=== PATIENT | male | born 1935 | race Caucasian/White ===

== ENCOUNTER 2017-05-06 16:06 | Inpatient (IN) | payer MEDICARE, MEDICAID ==
[2017-05-06] MEDS ORDERED: NORMAL SALINE 1000 ML 1,000 ML IV ONE (16:20)
[2017-05-06] MEDS ORDERED: CEFEPIME INJ 1 GM VIAL IM ONE (16:20)
--- NOTE | 2017-05-06 16:31 | ER Document Report ---
ED Fever - General Stated Complaint: FLU LIKE SYMPTOMS Time Seen by Provider: 05/06/17 16:12 Mode of Arrival: Medic Information source: Emergency Med Personnel TRAVEL OUTSIDE OF THE [place] IN LAST 30 DAYS: No - HPI Notes: 81-year-old male with history of three-vessel CABG, hypertension, CVA, diabetes according to prior records presents with fever. He is somewhat confused but states he has been having fever and symptoms for about 3 days at this point. EMS records shows that started yesterday and apparently his roommate has had influenza. Unclear when his first dose was but he has Tamiflu listed on his [facility]. He is disoriented and per record has severe dementia. He does complain of some shortness of breath. Denies any specific pain to me. He is a resident at [facility] where there is apparently a very severe influenza outbreak. Temperature per report from medic was 102 rectally and the patient had been confused. Unclear what his normal baseline mental status is like. EMS vitals included a blood pressure 123/60 and oxygen saturation of 93% on 4 L of nasal cannula. Reviewed records also show an allergy to penicillin which causes swelling but no further description. - Related Data Allergies/Adverse Reactions: Penicillins Allergy (Verified 09/19/15 18:36) swelling Past Medical History - Social History Smoking Status: Unknown if Ever Smoked Family History: Reviewed & Not Pertinent - Past Medical History Cardiac Medical History: Reports: Hx Coronary Artery Disease, Hx Heart Attack - 2000, Hx Hypercholesterolemia, Hx Hypertension, Hx Peripheral Vascular Disease Pulmonary Medical History: Reports: Hx COPD, Hx Pneumonia - 2013 Neurological Medical History: Reports: Hx Cerebrovascular Accident Endocrine Medical History: Reports: Hx Diabetes Mellitus Type 2 Renal/ Medical History: Reports: Hx Kidney Stones Musculoskeltal Medical History: Reports Hx Arthritis - Generalized Psychiatric Medical History: Reports: Hx Depression Past Surgical History: Reports: Hx Cardiac Catheterization, Hx Cardiac Surgery - Open heart - triple bypass., Hx Coronary Artery Bypass Graft - x3, Hx Kidney ( Renal Surgery) - Kidney stone, Hx Open Heart Surgery - TRIPLE BYPASS - Immunizations Hx Diphtheria, Pertussis, Tetanus Vaccination: No Hx Pneumococcal Vaccination: 01/05/14 Review of Systems - Review of Systems -: Yes ROS unobtainable due to patient's medical condition - Severe dementia and confusion Physical Exam - Vital signs Vitals: Resp Pulse Ox 37 H 95 05/06/17 16:34 05/06/17 16:34 Interpretation: Febrile - Notes Notes: GENERAL: VS as per nursing doc. Well-appearing, well-nourished and in mild respiratory acute distress. HEAD: Atraumatic, normocephalic. EYES: Right pupil appears normal, left eye enucleation noted sclera anicteric, no conjunctival injection or discharge. ENT: Nares patent, oropharynx clear without exudates with the exception of mild posterior erythema, slightly dry mucous membranes. NECK: Normal range of motion, supple without lymphadenopathy. LUNGS: Diffuse rhonchi noted. Scattered rails worse on the right side. Breath sounds decreased overall bilaterally HEART: Tachycardic and regular without murmurs. ABDOMEN: Soft, non-tender no obvious mass, bowel sounds present BACK: No CVA tenderness. EXTREMITIES: No unilateral edema NEUROLOGICAL: Generalized weakness noted PSYCH: Somnolent, oriented 1 SKIN: Warm, dry. Course - Re-evaluation Re-evalutation: 05/06/17 20:[address] Mauricio and he states the patient has been comfort care in the past and hospice. We have no records from hospice after reviewing the chart again. 05/06/17 20:26 Spoke to nursing staff at [place] [id number]. They report the patient is actually a full code. He does have an emergency contact listed as a j[employer] affiliate but they states he is usually oriented enough to make decisions for himself. They report he is not usually this weak and confused. I will contact Dr. Mauricio back. They are going to fax further paperwork. 05/06/17 20:41 Reviewed patient's records that they sent from the long term and verified the patient's name. On his annual review as of January 21, 2017, the patient and the sales representative publications both desire to keep him full code. Awaiting Dr. Mauricio to return call as no answer. - Vital Signs Vital signs: Temp Pulse Resp BP Pulse Ox 24 H 123/47 L 94 05/06/17 17:01 05/06/17 17:01 05/06/17 17:01 - Laboratory Result Diagrams: 05/06/17 16:40 05/06/17 16:40 Laboratory results interpreted by me: 05/06/17 05/06/17 05/06/17 16:40 16:40 16:40 WBC 12.9 H RBC 3.45 L Hgb 10.1 L Hct 30.0 L RDW 14.7 H Seg Neutrophils % 85.7 H Lymphocytes % 7.3 L Absolute Neutrophils 11.1 H PT 16.8 H BUN 25 H Creatinine 1.87 H Est GFR ( Amer) 42 L Est GFR (Non-Af Amer) 35 L Glucose 221 H Lactic Acid Urine Protein Urine Blood 05/06/17 05/06/17 17:57 18:19 WBC RBC Hgb Hct RDW Seg Neutrophils % Lymphocytes % Absolute Neutrophils PT BUN Creatinine Est GFR ( Amer) Est GFR (Non-Af Amer) Glucose Lactic Acid 2.2 H Urine Protein 100 H Urine Blood LARGE H - Diagnostic Test Radiology reviewed: Reports reviewed - Infiltrate - Consults Dr. Mauricio Time consulted: 20:48 - Admit to [facility] bed Discharge - Discharge Clinical Impression: Aspiration pneumonia Condition: Poor Disposition: ADMITTED INPATIENT Admitting Provider: Dr. Mauricio
[2017-05-06] MEDS ORDERED: IPRATROPIUM/ALBUTEROL 0.5-2.5 MG/3 ML AMPUL NEB ONE ×2 (16:33→19:50)
[2017-05-06 17:17] LABS: ABSOLUTE LYMPHOCYTES (AUTO) 0.9 10^3/uL (0.5-4.7); ABSOLUTE MONOCYTES (AUTO) 0.8 10^3/uL (0.1-1.4); ABSOLUTE NEUT (AUTO) 11.1 10^3/uL (1.7-8.2); BASOPHILS % (AUTO) 0.4 % (0-2); EOSINOPHILS % (AUTO) 0.2 % (0-6); HEMOGLOBIN 10.1 g/dL (13.5-17.0); LYMPHOCYTES % (AUTO) 7.3 % (13-45); MEAN CORPUSCULAR HEMOGLOBIN 29.2 pg (27.0-33.4); MEAN CORPUSCULAR HGB CONC 33.6 g/dL (32.0-36.0); MEAN CORPUSCULAR VOLUME 87 fl (80-97); MONOCYTES % (AUTO) 6.4 % (3-13); PLATELET COUNT 172 10^3/uL (150-450); RED BLOOD COUNT 3.45 10^6/uL (4.35-5.55); RED CELL DISTRIBUTION WIDTH 14.7 % (11.5-14.0); SEGMENTED NEUTROPHILS % (AUTO) 85.7 % (42-78); TOTAL CELLS COUNTED % (AUTO) 100 %; WHITE BLOOD COUNT 12.9 10^3/uL (4.0-10.5)
[2017-05-06 17:22] LABS: INTERNATIONAL RATION (INR) 1.28; PROTHROMBIN TIME 16.8 SEC (11.4-15.4)
[2017-05-06 17:39] LABS: ALANINE AMINOTRANSFERASE 22 U/L (21-72); ALBUMIN 4.1 g/dL (3.5-5.0); ALKALINE PHOSPHATASE 51 U/L (38-126); ANION GAP 13 (5-19); ASPARTATE AMINO TRANSFERASE 27 U/L (17-59); BILIRUBIN,DIRECT 0.3 mg/dL (0.0-0.4); BILIRUBIN,TOTAL 0.7 mg/dL (0.2-1.3); BLOOD UREA NITROGEN 25 mg/dL (7-20); CALCIUM 9.6 mg/dL (8.4-10.2); CARBON DIOXIDE 23 mmol/L (22-30); CHLORIDE 102 mmol/L (98-107); GLUCOSE 221 mg/dL (75-110); POTASSIUM 4.4 mmol/L (3.6-5.0); SODIUM 138.3 mmol/L (137-145); TOTAL PROTEIN 6.9 g/dL (6.3-8.2)
--- NOTE | 2017-05-06 17:49 | RADIOLOGY REPORT (SQ) ---
EXAM DESCRIPTION: CHEST SINGLE VIEW COMPLETED DATE/TIME: 05/06/2017 5:41 pm REASON FOR STUDY: Fever, Dyspnea COMPARISON: 11/01/2015. EXAM PARAMETERS: NUMBER OF VIEWS: One view. TECHNIQUE: Single frontal radiographic view of the chest acquired. RADIATION DOSE: NA LIMITATIONS: None. FINDINGS: LUNGS AND PLEURA: Patchy density in the right lower lobe. Left lung clear. No large pleu ral effusion. MEDIASTINUM AND HILAR STRUCTURES: No masses. Contour normal. HEART AND VASCULAR STRUCTURES: Cardiomegaly. Mild vascular prominence. BONES: No acute findings. HARDWARE: Sternotomy wires and coronary bypass markers. OTHER: No other significant finding. IMPRESSION: RIGHT LOWER LOBE DENSITY SUSPICIOUS FOR PNEUMONIA. CARDIOMEGALY WITH BORDERLINE VASCULA R CONGESTION. TECHNICAL DOCUMENTATION: JOB ID: [id number]- All Rights Reserved
[2017-05-06 18:07] LABS: ARTERIAL BLOOD BASE EXCESS -0.3 mmol/L; ARTERIAL BLOOD FIO2 4L; ARTERIAL BLOOD H2CO3 1.26 mmol/L (1.05-1.35); ARTERIAL BLOOD HCO3 24.7 mmol/L (20-26); ARTERIAL BLOOD O2 SATURATION 96.1 % (94-98); ARTERIAL BLOOD PCO2 41.9 mmHg (35-45); ARTERIAL BLOOD PH 7.39 (7.35-7.45); ARTERIAL BLOOD PO2 82.9 mmHg (80-100)
[2017-05-06] MEDS ORDERED: VANCOMYCIN HCL INJ 1000 MG VIAL IV ONE (18:08)
--- NOTE | 2017-05-06 18:32 | EKG REPORT ---
SEVERITY:- ABNORMAL ECG - SINUS RHYTHM RIGHT BUNDLE BRANCH BLOCK : Confirmed by: Maximilian Deras 06-May-2017 18:32:06
[2017-05-06 19:09] LABS: APPEARANCE,URINE SLIGHTLY-CLOUDY; BILIRUBIN,URINE NEGATIVE (NEGATIVE); COLOR,URINE YELLOW; GLUCOSE, URINE NEGATIVE (NEGATIVE); KETONES,URINE NEGATIVE (NEGATIVE); LEUKOCYTE ESTERASE,URINE NEGATIVE (NEGATIVE); NITRITE,URINE NEGATIVE (NEGATIVE); PROTEIN,URINE 100 mg/dL (NEGATIVE); URINE SPECIFIC GRAVITY 1.014; UROBILINOGEN,URINE NEGATIVE mg/dL (<2.0)
[2017-05-06 19:22] LABS: A TYPE INFLUENZA AG NEGATIVE (NEGATIVE); B INFLUENZA AG NEGATIVE (NEGATIVE)
[2017-05-06] MEDS ORDERED: CEFEPIME 1 GM/D5W RTU 0 GM/0 ML RTUPB IV ONE (19:47)
[2017-05-06] MEDS ORDERED: IPRATROPIUM BROMIDE 0.02% NEB 0.5 MG/2.5 ML AMPUL NEB ONE (19:49)
[2017-05-06] MEDS ORDERED: ACETAMINOPHEN 325 MG TABLET PO PRN (20:46)
[2017-05-06] MEDS ORDERED: IPRATROPIUM/ALBUTEROL 0.5-2.5 MG/3 ML AMPUL NEB PRN (20:46)
[2017-05-06] MEDS ORDERED: GUAIFENESIN SYRP 200 MG/10 ML UDC PO PRN (20:46)
[2017-05-06] MEDS ORDERED: GLUCAGON,HUMAN RECOMB 1 MG INJ IM PRN (20:49)
[2017-05-06] MEDS ORDERED: DEXTROSE 40% GEL 15 GM TUBE PO PRN ×2 (20:49)
[2017-05-06] MEDS ORDERED: DEXTROSE 50%-WATER 25 GM/50 ML DISP.SYRIN IV PRN ×2 (20:49)
[2017-05-06] MEDS: METOPROLOL TARTRATE 50 MG TABLET PO SCH (22:00)
[2017-05-06] MEDS ORDERED: CARBIDOPA/LEVODOPA 25-100 MG TABLET PO ONE (23:00)
[2017-05-06] MEDS ORDERED: LEVOFLOXACIN 750 MG/D5W RTU 750 MG/150 ML RTUPB IV ONE (23:00)
[2017-05-07] MEDS: GUAIFENESIN 600 MG TABLET.SA PO SCH ×3 (00:22→23:29)
[2017-05-07] MEDS: TRAZODONE HCL 50 MG TABLET PO SCH ×2 (00:23→23:32)
[2017-05-07] MEDS: ATORVASTATIN CALCIUM 10 MG TABLET PO SCH ×2 (00:23→23:30)
[2017-05-07] MEDS ORDERED: CARBIDOPA/LEVODOPA 25-100 MG TABLET ONE (00:31)
[2017-05-07] MEDS: IPRATROPIUM/ALBUTEROL 0.5-2.5 MG/3 ML AMPUL NEB SCH ×4 (02:01→20:29)
[2017-05-07 04:26] LABS: ABSOLUTE LYMPHOCYTES (AUTO) 0.7 10^3/uL (0.5-4.7); ABSOLUTE MONOCYTES (AUTO) 0.6 10^3/uL (0.1-1.4); ABSOLUTE NEUT (AUTO) 10.1 10^3/uL (1.7-8.2); BASOPHILS % (AUTO) 0.1 % (0-2); EOSINOPHILS % (AUTO) 0.3 % (0-6); HEMATOCRIT 31.1 % (37.9-51.0); HEMOGLOBIN 10.4 g/dL (13.5-17.0); MEAN CORPUSCULAR HGB CONC 33.3 g/dL (32.0-36.0); MEAN CORPUSCULAR VOLUME 87 fl (80-97); MONOCYTES % (AUTO) 5.2 % (3-13); PLATELET COUNT 159 10^3/uL (150-450); RED BLOOD COUNT 3.57 10^6/uL (4.35-5.55); RED CELL DISTRIBUTION WIDTH 14.7 % (11.5-14.0); SEGMENTED NEUTROPHILS % (AUTO) 88.4 % (42-78); TOTAL CELLS COUNTED % (AUTO) 100 %; WHITE BLOOD COUNT 11.5 10^3/uL (4.0-10.5)
[2017-05-07 05:01] LABS: ANION GAP 14 (5-19); BLOOD UREA NITROGEN 26 mg/dL (7-20); CALCIUM 9.4 mg/dL (8.4-10.2); CARBON DIOXIDE 25 mmol/L (22-30); CHLORIDE 102 mmol/L (98-107); GLUCOSE 217 mg/dL (75-110); POTASSIUM 4.5 mmol/L (3.6-5.0); SODIUM 140.6 mmol/L (137-145)
--- NOTE | 2017-05-07 05:38 | PDOC H&P ---
History of Present Illness Admission Date/PCP: 05/06/17 21:24 Patient complains of: Shortness of breath and cough History of Present Illness: STEPHENIE PEREZ is a 81 year old male who is a resident of [facility] with a past medical history of coronary artery disease status post three-vessel coronary artery bypass graft,, COPD, obstructive sleep apnea, diabetes and recurrent aspiration pneumonia. He presents after 3 days of shortness of breath fever and cough. Patient recalls coughing while eating, he is received treatment for influenza with Tamiflu as his roommate is flu positive. In the emergency room he is tachypneic and hypoxic. He receives albuterol, Atrovent, empiric antibiotics and referred to the hospitalist for admission. Patient denies chest pain nausea or vomiting. He does admit several episodes of aspiration pneumonia which prompted consideration of hospice within the year. Past Medical History Cardiac Medical History: Reports: Coronary Artery Disease, Myocardial Infarction - 2000, Hyperlipidema, Hypertension, Peripheral Vascular Disease Pulmonary Medical History: Reports: Chronic Obstructive Pulmonary Disease (COPD) , Pneumonia - 2013 Endocrine Medical History: Reports: Diabetes Mellitus Type 2 Musculoskeltal Medical History: Reports: Arthritis - Generalized Psychiatric Medical History: Reports: Depression Hematology: Denies: Anemia, Sickle Cell Disease Past Surgical History Past Surgical History: Reports: Cardiac Catheterization, Coronary Artery Bypass Graft - x3 Social History Information Source: Patient, [facility] Records Lives with: Alf Smoking Status: Unknown if Ever Smoked Frequency of Alcohol Use: None Hx Recreational Drug Use: No Hx Prescription Drug Abuse: No - Advance Directive Resuscitation Status: Full Code Family History Family History: COPD Parental Family History Reviewed: Yes Children Family History Reviewed: Yes Sibling(s) Family History Reviewed.: Yes Medication/Allergy Allergies/Adverse Reactions: Penicillins Allergy (Verified 09/19/15 18:36) swelling Review of Systems ROS unobtainable: Due to mental status Physical Exam Vital Signs: Temp Pulse Resp BP Pulse Ox 98.9 F 34 H 125/60 93 05/06/17 23:01 05/07/17 04:19 05/07/17 04:00 05/07/17 04:19 General appearance: PRESENT: cooperative, disheveled, severe distress Head exam: PRESENT: atraumatic, normocephalic Eye exam: PRESENT: conjunctiva pink, EOMI, PERRLA. ABSENT: scleral icterus Ear exam: PRESENT: normal external ear exam Mouth exam: PRESENT: moist, tongue midline Neck exam: ABSENT: carotid bruit, JVD, lymphadenopathy, thyromegaly Respiratory exam: PRESENT: accessory muscle use, crackles, prolonged expiratory phas, rales, retraction, rhonchi, tachypnea. ABSENT: wheezes Cardiovascular exam: PRESENT: RRR, tachycardia. ABSENT: diastolic murmur, rubs , systolic murmur Pulses: PRESENT: normal dorsalis pedis pul Vascular exam: PRESENT: normal capillary refill GI/Abdominal exam: PRESENT: normal bowel sounds, soft. ABSENT: distended, guarding, mass, organolmegaly, rebound, tenderness Rectal exam: PRESENT: deferred Extremities exam: PRESENT: full ROM. ABSENT: calf tenderness, clubbing, pedal edema Neurological exam: PRESENT: alert, awake, oriented to person, oriented to place , oriented to time, oriented to situation, CN II-XII grossly intact. ABSENT: motor sensory deficit Psychiatric exam: PRESENT: appropriate affect, normal mood. ABSENT: homicidal ideation, suicidal ideation Skin exam: PRESENT: dry, intact, warm. ABSENT: cyanosis, rash Results Laboratory Results: 05/07/17 04:15 05/07/17 04:15 05/06/17 05/07/17 05/07/17 21:54 04:15 04:15 WBC 11.5 H RBC 3.57 L Hgb 10.4 L Hct 31.1 L MCV 87 MCH 29.0 MCHC 33.3 RDW 14.7 H Plt Count 159 Seg Neutrophils % 88.4 H Lymphocytes % 6.0 L Monocytes % 5.2 Eosinophils % 0.3 Basophils % 0.1 Absolute Neutrophils 10.1 H Absolute Lymphocytes 0.7 Absolute Monocytes 0.6 Absolute Eosinophils 0.0 Absolute Basophils 0.0 Sodium 140.6 Potassium 4.5 Chloride 102 Carbon Dioxide 25 Anion Gap 14 BUN 26 H Creatinine 1.76 H Est GFR ( Amer) 45 L Est GFR (Non-Af Amer) 37 L Glucose 217 H Lactic Acid 2.1 Calcium 9.4 Impressions: Chest X-Ray 05/06/17 16:21 IMPRESSION: RIGHT LOWER LOBE DENSITY SUSPICIOUS FOR PNEUMONIA. CARDIOMEGALY WITH BORDERLINE VASCULAR CONGESTION. Assessment & Plan - Diagnosis (1) Aspiration pneumonia Is this a current diagnosis for this admission?: Yes Plan: Pneumonia care set, speech therapy consult, follow-up blood culture and CBC (2) Obstructive sleep apnea Is this a current diagnosis for this admission?: Yes Plan: BiPAP (3) Acute renal failure Qualifiers: Acute renal failure type: unspecified Qualified Code(s): N17.9 - Acute kidney failure, unspecified Is this a current diagnosis for this admission?: Yes Plan: Likely secondary to acute illness and mild hypovolemia with fever. IV fluid challenge and reevaluation of chemistry. Avoid nephrotoxic meds and doses - Time Time Spent: 50 to 70 Minutes - Inpatient Certification Medical Necessity: Need Close Monitoring Due to Risk of Patient Decompensation
[2017-05-07] MEDS: HEPARIN SOD (PORCINE) 5,000 UNIT/ML 1 ML SYRINGE SUBCUT SCH ×3 (06:06→23:33)
[2017-05-07] MEDS ORDERED: CARBIDOPA/LEVODOPA 25-100 MG TABLET PO SCH (10:00)
[2017-05-07] MEDS: CARBIDOPA/LEVODOPA 25-100 MG TABLET PO SCH ×2 (10:48→23:30)
[2017-05-07] MEDS: LORATADINE 10 MG TABLET PO SCH (10:48)
[2017-05-07] MEDS: METOPROLOL TARTRATE 50 MG TABLET PO SCH ×2 (10:48→23:30)
[2017-05-07] MEDS: MAGNESIUM OXIDE 400 MG TABLET PO SCH ×2 (10:48→17:56)
[2017-05-07] MEDS: TAMSULOSIN HCL 0.4 MG CAP.SR.24H PO SCH (10:48)
[2017-05-07] MEDS: VENLAFAXINE HCL 75 MG TABLET PO SCH (10:49)
[2017-05-07] MEDS ORDERED: INFLUENZA ADLT QUAD (36MOS+) 2017-18 VAC 0.5 ML SYR IM PRN (13:34)
[2017-05-08] MEDS: IPRATROPIUM/ALBUTEROL 0.5-2.5 MG/3 ML AMPUL NEB SCH ×4 (02:06→20:00)
[2017-05-08] MEDS: HEPARIN SOD (PORCINE) 5,000 UNIT/ML 1 ML SYRINGE SUBCUT SCH ×3 (06:12→22:00)
[2017-05-08] MEDS: GUAIFENESIN 600 MG TABLET.SA PO SCH ×2 (09:56→21:46)
[2017-05-08] MEDS: VENLAFAXINE HCL 75 MG TABLET PO SCH (09:56)
[2017-05-08] MEDS: TAMSULOSIN HCL 0.4 MG CAP.SR.24H PO SCH (09:56)
[2017-05-08] MEDS: CARBIDOPA/LEVODOPA 25-100 MG TABLET PO SCH ×2 (09:57→21:47)
[2017-05-08] MEDS: MAGNESIUM OXIDE 400 MG TABLET PO SCH ×2 (09:57→18:06)
[2017-05-08] MEDS: METOPROLOL TARTRATE 50 MG TABLET PO SCH ×2 (09:57→22:01)
[2017-05-08] MEDS: LORATADINE 10 MG TABLET PO SCH (09:57)
[2017-05-08] MEDS ORDERED: NORMAL SALINE 1000 ML 1,000 ML IV PRN (11:57)
[2017-05-08] MEDS ORDERED: VANCOMYCIN HCL 0 MG in DEXTROSE 5%-WATER 250 ML IV NR (12:00)
[2017-05-08] MEDS ORDERED: FUROSEMIDE INJ/PF 40 MG/4 ML SDV IV ONE (12:02)
--- NOTE | 2017-05-08 12:09 | PDOC PROGRESS REPORT ---
Subjective Progress Note for:: 05/07/17 Subjective:: Patient is a 81-year-old male with pneumonia, auditory distress, dementia and anemia. He is currently on BiPAP. Patient has no complaints. Patient was evaluated by speech therapy and did pass his speech evaluation. Patient does not require a modified diet. Reason For Visit: ASPIRATION PNEUMONIA DEMENTIA Physical Exam Vital Signs: Selected Entries 05/07/17 20:12 Temperature 97.9 F Temperature Axillary Source Pulse Rate 85 Respiratory 16 Rate Blood Pressure 112/45 L Blood Pressure 67 Mean BP Location Left Arm BP Position Supine O2 Sat by Pulse 93 Oximetry Oxygen Delivery Bipap Method General appearance: PRESENT: no acute distress, obese, well-nourished Head exam: PRESENT: normocephalic Eye exam: ABSENT: scleral icterus Ear exam: PRESENT: normal external ear exam Mouth exam: PRESENT: moist Neck exam: ABSENT: carotid bruit, JVD, lymphadenopathy, thyromegaly Respiratory exam: PRESENT: clear to auscultation vesta. ABSENT: rales, rhonchi, wheezes Cardiovascular exam: PRESENT: RRR. ABSENT: diastolic murmur, rubs, systolic murmur Pulses: PRESENT: normal dorsalis pedis pul Vascular exam: PRESENT: normal capillary refill GI/Abdominal exam: PRESENT: normal bowel sounds, soft. ABSENT: distended, guarding, mass, organolmegaly, rebound, tenderness Rectal exam: PRESENT: deferred Extremities exam: ABSENT: calf tenderness, clubbing, pedal edema Neurological exam: PRESENT: awake, oriented to person. ABSENT: motor sensory deficit Psychiatric exam: PRESENT: flat affect. ABSENT: homicidal ideation, suicidal ideation Skin exam: PRESENT: dry, intact, warm. ABSENT: cyanosis, rash Results Laboratory Results: 05/07/17 04:15 05/07/17 04:15 Impressions: Chest X-Ray 05/06/17 16:21 IMPRESSION: RIGHT LOWER LOBE DENSITY SUSPICIOUS FOR PNEUMONIA. CARDIOMEGALY WITH BORDERLINE VASCULAR CONGESTION. Assessment & Plan - Diagnosis (1) Aspiration pneumonia Qualifiers: Laterality: right Lung location: lower lobe of lung Is this a current diagnosis for this admission?: Yes Plan: Patient with right lower lobe pneumonia. Patient only on Levaquin. Patient may require staph coverage as patient does reside at [facility]. Will add vancomycin. She was evaluated by speech therapy and patient did not aspirate however he does continue to cough. Influenza negative. (2) Obstructive sleep apnea Is this a current diagnosis for this admission?: Yes Plan: Continue BiPAP at night or as needed. (3) Acute renal failure Qualifiers: Acute renal failure type: unspecified Qualified Code(s): N17.9 - Acute kidney failure, unspecified Is this a current diagnosis for this admission?: Yes Plan: Not sure if patient has acute on chronic renal failure. Patient did show some improvement with gentle hydration. We will continue to monitor. Continue holding lisinopril. (4) Type 2 diabetes mellitus Is this a current diagnosis for this admission?: Yes Plan: Patient with type 2 diabetes normally on oral anti-hyperglycemics however patient currently not eating. Will use sliding scale insulin for now. (5) CAD (coronary artery disease) Is this a current diagnosis for this admission?: Yes Plan: Continue beta-christal and statin. Patient is currently not on any aspirin not sure why he is not. Patient may benefit from a baby aspirin. (6) HLD (hyperlipidemia) Is this a current diagnosis for this admission?: Yes Plan: Continue statin. (7) HTN (hypertension) Is this a current diagnosis for this admission?: Yes Plan: TU Norvasc and Coreg. No lisinopril for now as patient has acute on chronic renal failure. - Time Time Spent with patient: 15-24 minutes Anticipated discharge: SNF Within: Other - Inpatient Certification Medical Necessity: Significant Comorbidiites Make Outpatient Treatment Too Risky - Patient is currently requiring continuous BiPAP. Patient still showing signs of distress. Will have to get patient closer to his baseline before returning him to [facility]., Need Close Monitoring Due to Risk of Patient Decompensation, Need for IV Antibiotics
[2017-05-08] MEDS ORDERED: VANCOMYCIN HCL 1,500 MG in DEXTROSE 5%-WATER 250 ML IV SCH (16:00)
[2017-05-08] MEDS: INSULIN LISPRO 100 UNIT/ML 3 ML VIAL SUBCUT PRN (18:06)
[2017-05-08] MEDS: BUDESONIDE NEB 0.5 MG/2 ML AMPUL NEB SCH (20:01)
[2017-05-08] MEDS: LEVOFLOXACIN 750 MG/D5W RTU 750 MG/150 ML RTUPB IV SCH (21:44)
[2017-05-08] MEDS: TRAZODONE HCL 50 MG TABLET PO SCH (21:45)
[2017-05-08] MEDS: ATORVASTATIN CALCIUM 10 MG TABLET PO SCH (21:47)
[2017-05-09] MEDS: IPRATROPIUM/ALBUTEROL 0.5-2.5 MG/3 ML AMPUL NEB SCH ×4 (02:12→20:17)
[2017-05-09] MEDS: METHYLPREDNISOLONE INJ 40 MG/1 ML SDV IV SCH ×3 (06:00→22:42)
[2017-05-09] MEDS: HEPARIN SOD (PORCINE) 5,000 UNIT/ML 1 ML SYRINGE SUBCUT SCH ×3 (06:02→22:43)
[2017-05-09] MEDS: BUDESONIDE NEB 0.5 MG/2 ML AMPUL NEB SCH ×2 (08:03→20:17)
[2017-05-09] MEDS: METOPROLOL TARTRATE 50 MG TABLET PO SCH ×2 (10:41→22:47)
[2017-05-09] MEDS: GUAIFENESIN 600 MG TABLET.SA PO SCH ×2 (10:42→22:42)
[2017-05-09] MEDS: MAGNESIUM OXIDE 400 MG TABLET PO SCH ×2 (10:42→17:15)
[2017-05-09] MEDS: CARBIDOPA/LEVODOPA 25-100 MG TABLET PO SCH ×2 (10:42→22:47)
[2017-05-09] MEDS: VENLAFAXINE HCL 75 MG TABLET PO SCH (10:42)
[2017-05-09] MEDS: TAMSULOSIN HCL 0.4 MG CAP.SR.24H PO SCH (10:42)
[2017-05-09] MEDS: INSULIN LISPRO 100 UNIT/ML 3 ML VIAL SUBCUT PRN ×4 (10:43→22:43)
[2017-05-09] MEDS: LORATADINE 10 MG TABLET PO SCH (10:43)
[2017-05-09 11:15] LABS: ABSOLUTE LYMPHOCYTES (AUTO) 0.8 10^3/uL (0.5-4.7); ABSOLUTE MONOCYTES (AUTO) 0.2 10^3/uL (0.1-1.4); ABSOLUTE NEUT (AUTO) 5.1 10^3/uL (1.7-8.2); BASOPHILS % (AUTO) 0.4 % (0-2); EOSINOPHILS % (AUTO) 0.5 % (0-6); HEMATOCRIT 33.8 % (37.9-51.0); HEMOGLOBIN 11.2 g/dL (13.5-17.0); LYMPHOCYTES % (AUTO) 13.6 % (13-45); MEAN CORPUSCULAR HEMOGLOBIN 29.2 pg (27.0-33.4); MEAN CORPUSCULAR HGB CONC 33.2 g/dL (32.0-36.0); MEAN CORPUSCULAR VOLUME 88 fl (80-97); MONOCYTES % (AUTO) 3.7 % (3-13); PLATELET COUNT 182 10^3/uL (150-450); RED BLOOD COUNT 3.84 10^6/uL (4.35-5.55); RED CELL DISTRIBUTION WIDTH 14.7 % (11.5-14.0); SEGMENTED NEUTROPHILS % (AUTO) 81.8 % (42-78); TOTAL CELLS COUNTED % (AUTO) 100 %; WHITE BLOOD COUNT 6.2 10^3/uL (4.0-10.5)
[2017-05-09 11:31] LABS: ANION GAP 13 (5-19); BLOOD UREA NITROGEN 45 mg/dL (7-20); CALCIUM 9.5 mg/dL (8.4-10.2); CARBON DIOXIDE 25 mmol/L (22-30); CHLORIDE 104 mmol/L (98-107); GLUCOSE 265 mg/dL (75-110); MAGNESIUM 2.1 mg/dL (1.6-2.3); POTASSIUM 4.2 mmol/L (3.6-5.0); SODIUM 142.1 mmol/L (137-145)
--- NOTE | 2017-05-09 11:54 | PDOC PROGRESS REPORT ---
Subjective Progress Note for:: 05/08/17 Subjective:: Patient is a 81-year-old male with pneumonia, auditory distress, dementia and anemia. He is currently on BiPAP. Patient has no complaints. Patient desating while on bipap. Oxygen had to be increased. Patient otherwise doing well. Reason For Visit: ASPIRATION PNEUMONIA DEMENTIA Physical Exam Vital Signs: Temp Pulse Resp BP Pulse Ox 97.8 F 74 31 H 108/40 L 95 05/08/17 19:59 05/08/17 20:01 05/08/17 20:01 05/08/17 19:59 05/08/17 20:01 Intake & Output 05/07/17 05/08/17 05/09/17 06:59 06:59 06:59 Intake Total 240 930 Output Total 200 1050 Balance 40 -120 Weight 111.4 kg General appearance: PRESENT: no acute distress, well-developed, well-nourished Head exam: PRESENT: normocephalic Eye exam: PRESENT: other - enucleated left eye. ABSENT: scleral icterus Ear exam: PRESENT: normal external ear exam Mouth exam: PRESENT: moist Neck exam: ABSENT: carotid bruit, JVD, lymphadenopathy, thyromegaly Respiratory exam: PRESENT: clear to auscultation vesta. ABSENT: rales, rhonchi, wheezes Cardiovascular exam: PRESENT: RRR. ABSENT: diastolic murmur, rubs, systolic murmur Pulses: PRESENT: normal dorsalis pedis pul Vascular exam: PRESENT: normal capillary refill GI/Abdominal exam: PRESENT: normal bowel sounds, soft. ABSENT: distended, guarding, mass, organolmegaly, rebound, tenderness Rectal exam: PRESENT: deferred Extremities exam: PRESENT: full ROM. ABSENT: calf tenderness, clubbing, pedal edema Neurological exam: PRESENT: alert, awake, oriented to person, CN II-XII grossly intact. ABSENT: motor sensory deficit Psychiatric exam: PRESENT: appropriate affect, normal mood. ABSENT: homicidal ideation, suicidal ideation Skin exam: PRESENT: dry, intact, warm. ABSENT: cyanosis, rash Results Laboratory Results: 05/07/17 04:15 Impressions: Chest X-Ray 05/06/17 16:21 IMPRESSION: RIGHT LOWER LOBE DENSITY SUSPICIOUS FOR PNEUMONIA. CARDIOMEGALY WITH BORDERLINE VASCULAR CONGESTION. Assessment & Plan - Diagnosis (1) Aspiration pneumonia Qualifiers: Laterality: right Lung location: lower lobe of lung Is this a current diagnosis for this admission?: Yes Plan: Patient with right lower lobe pneumonia. Continue vancomycin and Levaquin. Patient may require staph coverage as patient does reside at [facility]. He was evaluated by speech therapy and patient did not aspirate however he does continue to cough. Influenza negative. (2) Obstructive sleep apnea Is this a current diagnosis for this admission?: Yes Plan: Continue BiPAP. (3) Acute renal failure Qualifiers: Acute renal failure type: unspecified Qualified Code(s): N17.9 - Acute kidney failure, unspecified Is this a current diagnosis for this admission?: Yes Plan: Not sure if patient has acute on chronic renal failure. Will continue gentle hydration. Holding lisinopril for renal failure. Will monitor closely with patient being on vancomycin. (4) Type 2 diabetes mellitus Is this a current diagnosis for this admission?: Yes Plan: Patient with type 2 diabetes normally on oral anti-hyperglycemics. Continue SSI. (5) CAD (coronary artery disease) Is this a current diagnosis for this admission?: Yes Plan: Continue beta-christal and statin. Patient is currently not on any aspirin not sure why he is not. Patient may benefit from a baby aspirin. (6) HLD (hyperlipidemia) Is this a current diagnosis for this admission?: Yes Plan: Continue statin. (7) HTN (hypertension) Qualifiers: Hypertension type: essential hypertension Qualified Code(s): I10 - Essential (primary) hypertension Is this a current diagnosis for this admission?: Yes Plan: Continue Norvasc and Coreg. Will resume lisinopril when appropriate. Blood pressure fairly well controlled.
--- NOTE | 2017-05-09 12:15 | PDOC PROGRESS REPORT ---
Subjective Progress Note for:: 05/07/17 Subjective:: Patient is a 81-year-old male with pneumonia, auditory distress, dementia and anemia. He is currently on BiPAP. Patient has no complaints. Patient does not have any difficulty with swallowing. Patient was evaluated by speech therapy. Patient however continues to desat when he off BiPAP for any period of time. Reason For Visit: ASPIRATION PNEUMONIA DEMENTIA Physical Exam Vital Signs: Selected Entries 05/07/17 23:21 Temperature 98.3 F Temperature Axillary Source Pulse Rate 80 Respiratory 20 Rate Blood Pressure 118/51 L BP Location Left Arm BP Position Supine O2 Sat by Pulse 91 L Oximetry Oxygen Delivery Bipap Method General appearance: PRESENT: no acute distress, well-developed, well-nourished Head exam: PRESENT: atraumatic, normocephalic Eye exam: PRESENT: other - left eye enucleated. ABSENT: scleral icterus Ear exam: PRESENT: normal external ear exam Mouth exam: PRESENT: moist, tongue midline Neck exam: ABSENT: carotid bruit, JVD, lymphadenopathy, thyromegaly Respiratory exam: PRESENT: clear to auscultation vesta. ABSENT: rales, rhonchi, wheezes Cardiovascular exam: PRESENT: RRR. ABSENT: diastolic murmur, rubs, systolic murmur Pulses: PRESENT: normal dorsalis pedis pul Vascular exam: PRESENT: normal capillary refill GI/Abdominal exam: PRESENT: normal bowel sounds, soft. ABSENT: distended, guarding, mass, organolmegaly, rebound, tenderness Rectal exam: PRESENT: deferred Extremities exam: PRESENT: full ROM. ABSENT: calf tenderness, clubbing, pedal edema Neurological exam: PRESENT: alert, awake, oriented to person, CN II-XII grossly intact. ABSENT: motor sensory deficit Psychiatric exam: PRESENT: appropriate affect, normal mood. ABSENT: homicidal ideation, suicidal ideation Skin exam: PRESENT: dry, intact, warm. ABSENT: cyanosis, rash Results Laboratory Results: 05/07/17 05/07/17 04:15 04:15 WBC 11.5 H RBC 3.57 L Hgb 10.4 L Hct 31.1 L MCV 87 MCH 29.0 MCHC 33.3 RDW 14.7 H Plt Count 159 Seg Neutrophils % 88.4 H Lymphocytes % 6.0 L Monocytes % 5.2 Eosinophils % 0.3 Basophils % 0.1 Absolute Neutrophils 10.1 H Absolute Lymphocytes 0.7 Absolute Monocytes 0.6 Absolute Eosinophils 0.0 Absolute Basophils 0.0 Sodium 140.6 Potassium 4.5 Chloride 102 Carbon Dioxide 25 Anion Gap 14 BUN 26 H Creatinine 1.76 H Est GFR ( Amer) 45 L Est GFR (Non-Af Amer) 37 L Glucose 217 H Calcium 9.4 Impressions: Chest X-Ray 05/06/17 16:21 IMPRESSION: RIGHT LOWER LOBE DENSITY SUSPICIOUS FOR PNEUMONIA. CARDIOMEGALY WITH BORDERLINE VASCULAR CONGESTION. Assessment & Plan - Diagnosis (1) Aspiration pneumonia Qualifiers: Laterality: right Lung location: lower lobe of lung Is this a current diagnosis for this admission?: Yes Plan: Patient with right lower lobe pneumonia. On Levaquin. Patient may require staph coverage as patient does reside at [facility]. Will add vancomycin. He was evaluated by speech therapy and patient did not aspirate however he does continue to cough. Influenza negative. (2) Obstructive sleep apnea Is this a current diagnosis for this admission?: Yes Plan: Continue BiPAP. (3) Acute renal failure Qualifiers: Acute renal failure type: unspecified Qualified Code(s): N17.9 - Acute kidney failure, unspecified Is this a current diagnosis for this admission?: Yes Plan: Not sure if patient has acute on chronic renal failure. Will continue gentle hydration. Holding lisinopril for renal failure. Will monitor closely with patient being on vancomycin. (4) Type 2 diabetes mellitus Is this a current diagnosis for this admission?: Yes Plan: Patient with type 2 diabetes normally on oral anti-hyperglycemics. Will hold those for now. Continue SSI. (5) CAD (coronary artery disease) Is this a current diagnosis for this admission?: Yes Plan: Continue beta-christal and statin. Patient is currently not on any aspirin not sure why he is not. Patient may benefit from a baby aspirin. (6) HLD (hyperlipidemia) Is this a current diagnosis for this admission?: Yes Plan: Continue statin. (7) HTN (hypertension) Qualifiers: Hypertension type: essential hypertension Qualified Code(s): I10 - Essential (primary) hypertension Is this a current diagnosis for this admission?: Yes Plan: Continue Norvasc and Coreg. Will resume lisinopril when appropriate. Blood pressure fairly well controlled. - Time Time Spent with patient: Less than 15 minutes Anticipated discharge: SNF Within: within 72 hours - Inpatient Certification Medical Necessity: Need for IV Antibiotics - Patient still requiring continuous bipap.
[2017-05-09] MEDS: LEVOFLOXACIN 750 MG/D5W RTU 750 MG/150 ML RTUPB IV SCH (22:38)
[2017-05-09] MEDS: ATORVASTATIN CALCIUM 10 MG TABLET PO SCH (22:42)
[2017-05-09] MEDS: TRAZODONE HCL 50 MG TABLET PO SCH (22:42)
[2017-05-10] MEDS: IPRATROPIUM/ALBUTEROL 0.5-2.5 MG/3 ML AMPUL NEB SCH ×4 (02:07→19:30)
[2017-05-10] MEDS: HEPARIN SOD (PORCINE) 5,000 UNIT/ML 1 ML SYRINGE SUBCUT SCH ×3 (06:11→22:29)
[2017-05-10] MEDS: METHYLPREDNISOLONE INJ 40 MG/1 ML SDV IV SCH ×3 (06:12→22:29)
[2017-05-10] MEDS: BUDESONIDE NEB 0.5 MG/2 ML AMPUL NEB SCH ×2 (08:39→19:30)
[2017-05-10] MEDS: INSULIN LISPRO 100 UNIT/ML 3 ML VIAL SUBCUT PRN ×3 (09:04→17:45)
[2017-05-10 10:52] LABS: ANION GAP 13 (5-19); BLOOD UREA NITROGEN 46 mg/dL (7-20); CALCIUM 9.4 mg/dL (8.4-10.2); CARBON DIOXIDE 25 mmol/L (22-30); CHLORIDE 99 mmol/L (98-107); POTASSIUM 4.9 mmol/L (3.6-5.0); SODIUM 137.2 mmol/L (137-145)
[2017-05-10] MEDS: GUAIFENESIN 600 MG TABLET.SA PO SCH ×2 (11:01→22:29)
[2017-05-10] MEDS: CARBIDOPA/LEVODOPA 25-100 MG TABLET PO SCH ×2 (11:04→22:28)
[2017-05-10] MEDS: LORATADINE 10 MG TABLET PO SCH (11:04)
[2017-05-10] MEDS: VENLAFAXINE HCL 75 MG TABLET PO SCH (11:05)
[2017-05-10] MEDS: TAMSULOSIN HCL 0.4 MG CAP.SR.24H PO SCH (11:06)
[2017-05-10] MEDS: MAGNESIUM OXIDE 400 MG TABLET PO SCH ×2 (11:06→17:06)
[2017-05-10] MEDS: METOPROLOL TARTRATE 50 MG TABLET PO SCH ×2 (11:07→22:29)
[2017-05-10 11:22] LABS: GLUCOSE 502 mg/dL (75-110)
[2017-05-10] MEDS ORDERED: LEVOFLOXACIN 500 MG TABLET PO SCH (15:00)
--- NOTE | 2017-05-10 15:31 | PDOC PROGRESS REPORT ---
Subjective Progress Note for:: 05/09/17 Subjective:: Patient is a 81-year-old male with pneumonia, auditory distress, dementia and anemia. He is currently on BiPAP. Patient has no complaints. Patient is looking forward to working with physical therapy so that he can go home. Patient states his breathing is fine. Patient has been doing well. Patient is only on 20 have liters and is satting well. Patient only using BiPAP at night with sleep which is appropriate considering that he has obstructive sleep apnea. Reason For Visit: ASPIRATION PNEUMONIA DEMENTIA Physical Exam Vital Signs: Temp Pulse Resp BP Pulse Ox 98.1 F 72 20 103/46 L 95 05/09/17 16:13 05/09/17 16:13 05/09/17 16:13 05/09/17 16:13 05/09/17 16:13 Intake & Output 05/08/17 05/09/17 05/10/17 06:59 06:59 06:59 Intake Total 240 1470 373 Output Total 200 1300 800 Balance 40 170 -427 Weight 111.4 kg 93.2 kg General appearance: PRESENT: no acute distress, well-developed, well-nourished Head exam: PRESENT: atraumatic, normocephalic Eye exam: PRESENT: other - Enucleated left eye. ABSENT: scleral icterus Ear exam: PRESENT: normal external ear exam Mouth exam: PRESENT: tongue midline Neck exam: ABSENT: carotid bruit, JVD, lymphadenopathy, thyromegaly Respiratory exam: PRESENT: clear to auscultation vesta. ABSENT: rales, rhonchi, wheezes Cardiovascular exam: PRESENT: RRR. ABSENT: diastolic murmur, rubs, systolic murmur Pulses: PRESENT: normal dorsalis pedis pul Vascular exam: PRESENT: normal capillary refill GI/Abdominal exam: PRESENT: normal bowel sounds, soft. ABSENT: distended, guarding, mass, organolmegaly, rebound, tenderness Rectal exam: PRESENT: deferred Extremities exam: PRESENT: full ROM. ABSENT: calf tenderness, clubbing, pedal edema Neurological exam: PRESENT: alert, awake, oriented to person, oriented to place , oriented to time, oriented to situation, CN II-XII grossly intact. ABSENT: motor sensory deficit Psychiatric exam: PRESENT: appropriate affect, normal mood. ABSENT: homicidal ideation, suicidal ideation Skin exam: PRESENT: dry, intact, warm. ABSENT: cyanosis, rash Results Laboratory Results: 05/09/17 10:35 05/09/17 10:35 05/09/17 05/09/17 10:35 10:35 WBC 6.2 RBC 3.84 L Hgb 11.2 L Hct 33.8 L MCV 88 MCH 29.2 MCHC 33.2 RDW 14.7 H Plt Count 182 Seg Neutrophils % 81.8 H Lymphocytes % 13.6 Monocytes % 3.7 Eosinophils % 0.5 Basophils % 0.4 Absolute Neutrophils 5.1 Absolute Lymphocytes 0.8 Absolute Monocytes 0.2 Absolute Eosinophils 0.0 Absolute Basophils 0.0 Sodium 142.1 Potassium 4.2 Chloride 104 Carbon Dioxide 25 Anion Gap 13 BUN 45 H Creatinine 2.07 H Est GFR ( Amer) 37 L Est GFR (Non-Af Amer) 31 L Glucose 265 H Calcium 9.5 Magnesium 2.1 Impressions: Chest X-Ray 05/06/17 16:21 IMPRESSION: RIGHT LOWER LOBE DENSITY SUSPICIOUS FOR PNEUMONIA. CARDIOMEGALY WITH BORDERLINE VASCULAR CONGESTION. Assessment & Plan - Diagnosis (1) Aspiration pneumonia Qualifiers: Laterality: right Lung location: lower lobe of lung Is this a current diagnosis for this admission?: Yes Plan: Patient with right lower lobe pneumonia. Patient de-escalated Levaquin. Patient without leukocytosis. Patient swallowed well and did not have any signs of aspiration with speech therapy. (2) Obstructive sleep apnea Is this a current diagnosis for this admission?: Yes Plan: Settings are 12/6 with oxygen of 45. Patient only using BiPAP at night. (3) Acute renal failure Qualifiers: Acute renal failure type: unspecified Qualified Code(s): N17.9 - Acute kidney failure, unspecified Is this a current diagnosis for this admission?: Yes Plan: Suspect that this is acute on chronic renal failure. Will continue gentle hydration. Holding lisinopril for renal failure. Vancomycin also discontinued. (4) Type 2 diabetes mellitus Is this a current diagnosis for this admission?: Yes Plan: Patient with type 2 diabetes normally on oral anti-hyperglycemics. Will hold those for now. Continue SSI. (5) CAD (coronary artery disease) Is this a current diagnosis for this admission?: Yes Plan: Continue beta-christal and statin. Patient is currently not on any aspirin not sure why he is not. Patient may benefit from a baby aspirin. (6) HLD (hyperlipidemia) Is this a current diagnosis for this admission?: Yes Plan: Continue statin. (7) HTN (hypertension) Qualifiers: Hypertension type: essential hypertension Qualified Code(s): I10 - Essential (primary) hypertension Is this a current diagnosis for this admission?: Yes Plan: Continue Norvasc and Coreg. Will resume lisinopril when appropriate. Blood pressure fairly well controlled. - Time Time Spent with patient: Less than 15 minutes Anticipated discharge: SNF Within: within 24 hours
--- NOTE | 2017-05-10 15:44 | PDOC TRANSFER SUMMARY ---
General - Admit/Disc Date/PCP Admission Date/Primary Care Provider: 05/06/17 21:24 Discharge Date: 05/10/17 - Discharge Diagnosis (1) Aspiration pneumonia Is this a current diagnosis for this admission?: Yes (2) Obstructive sleep apnea Is this a current diagnosis for this admission?: Yes (3) Acute renal failure Is this a current diagnosis for this admission?: Yes (4) Type 2 diabetes mellitus Is this a current diagnosis for this admission?: Yes (5) CAD (coronary artery disease) Is this a current diagnosis for this admission?: Yes (6) HLD (hyperlipidemia) Is this a current diagnosis for this admission?: Yes (7) HTN (hypertension) Is this a current diagnosis for this admission?: Yes - Additional Information Resuscitation Status: Full Code Discharge Diet: Diabetic Prescriptions: Methylprednisolone [Medrol Dosepack (4 mg/Tab) 21 Tab/Dosepak] 4 mg PO ASDIR PRN #21 tab.ds.pk PRN Reason: Home Medications: Amlodipine Besylate [Norvasc 10 mg Tablet] 10 mg PO DAILY 05/07/17 Carvedilol [Coreg 3.125 mg Tablet] 3.125 mg PO Q12 05/07/17 Duloxetine HCl [Cymbalta] 30 mg PO QAM 05/07/17 Famotidine [Pepcid 20 mg Tablet] 20 mg PO BID 05/07/17 Magnesium Oxide [Mag-Ox 400 mg Tablet] 400 mg PO BID 05/07/17 Rinard-3 Fatty Acids [Rinard-3] 1,000 mg PO BID 05/07/17 Phenol/Sodium Phenolate [Chloraseptic Sore Throat Jakin 177 ml] 2 spray PO Q4HP PRN 05/07/17 Polyethylene Glycol 3350 [Miralax Powder 17 gm/Packet] 17 gm PO DAILY 05/07/17 Rosuvastatin Calcium [Crestor] 40 mg PO QAM 05/07/17 Sitagliptin Phos/Metformin HCl [Janumet 50-1,000 mg Tablet] 1 tab PO BID Tamsulosin HCl [Flomax 0.4 mg Cap.sr] 0.4 mg PO DAILY 05/07/17 Ipratropium/Albuterol Sulfate [Duoneb 3 ml Ampul] 3 ml NEB RTQ12 vial.neb 05/10 Levofloxacin [Levaquin 250 mg Tablet] 250 mg PO DAILY #6 tablet 05/10/17 Lisinopril [Zestril] 10 mg PO Q12 #0 05/10/17 Methylprednisolone [Medrol Dosepack (4 mg/Tab) 21 Tab/Dosepak] 4 mg PO ASDIR PRN #21 tab.ds.pk 05/10/17 History of Present Illness Admission Date/PCP: 05/06/17 21:24 History of Present Illness: STEPHENIE PEREZ is a 81 year old male who is a resident of [facility] with a past medical history of coronary artery disease status post three-vessel coronary artery bypass graft,, COPD, obstructive sleep apnea, diabetes and recurrent aspiration pneumonia. He presents after 3 days of shortness of breath fever and cough. Patient recalls coughing while eating, he is received treatment for influenza with Tamiflu as his roommate is flu positive. In the emergency room he is tachypneic and hypoxic. He receives albuterol, Atrovent, empiric antibiotics and referred to the hospitalist for admission. Patient denies chest pain nausea or vomiting. He does admit several episodes of aspiration pneumonia which prompted consideration of hospice within the year. Original H&P was dictated by Dr. Mauricio. Hospital Course Hospital Course: Patient was admitted for right lower lobe pneumonia there was concern that patient may have aspirated however when he was evaluated by speech therapy there was no obvious aspiration. Patient was however having respiratory difficulty making it unsafe for him to eat. Patient was placed on continuous BiPAP and treated aggressively for his pneumonia with cefepime and vancomycin. Blood cultures are drawn which remained negative. Patient was given duo nebs budesonide Singulair and Mucinex. When patient was not improving he was started on Solu-Medrol. Patient shows significant improvement and was able to maintain his saturations on 2-1/2 L. Patient also maintains his saturations on room air. Patient is only using BiPAP at night for his obstructive sleep apnea. Patient BiPAP settings are 12/6 with a oxygen of 45. Patient appear to have acute on chronic renal failure. I do believe the patient has a CKD stage III. Patient creatinine trended up to 2.07 has trended back down to 1.93 with gentle hydration. Patient continues to have adequate urine output. Patient will be discharged on 6 more days of Levaquin. Next dose to be taken on 2017. Patient is also being discharged on a Medrol Dosepak. Patient did have some elevated blood sugars however this is most likely related to the use of Solu-Medrol to help control his respiratory symptoms. Patient is being discharged on Medrol Dosepak. Patient blood glucoses should be better controlled once he is weaned off steroids. Patient can continue his oral anti- hyperglycemic medication. However this should be monitored closely in a patient with chronic renal failure. At some point in time patient should be transitioned over to insulin. Patient has been up and ambulated with PT. Patient will continue to require physical therapy. He was also evaluated by OT who discharged him stating that he was too high functioning. Patient will be discharged on 6 more days of Levaquin. Next dose to be taken on . Physical Exam Vital Signs: Temp Pulse Resp BP Pulse Ox 97.5 F 74 16 123/50 L 98 05/10/17 11:27 05/10/17 14:08 05/10/17 14:08 05/10/17 11:27 05/10/17 14:08 Intake & Output 05/09/17 05/10/17 05/11/17 06:59 06:59 06:59 Intake Total 1470 973 Output Total 1300 1300 Balance 170 -327 Weight 93.2 kg 94.5 kg General appearance: PRESENT: no acute distress, well-developed, well-nourished Head exam: PRESENT: normocephalic Eye exam: ABSENT: scleral icterus Ear exam: PRESENT: normal external ear exam Mouth exam: PRESENT: moist, tongue midline Neck exam: ABSENT: carotid bruit, JVD, lymphadenopathy, thyromegaly Respiratory exam: PRESENT: clear to auscultation vesta. ABSENT: rales, rhonchi, wheezes Cardiovascular exam: PRESENT: RRR. ABSENT: diastolic murmur, rubs, systolic murmur Pulses: PRESENT: normal dorsalis pedis pul Vascular exam: PRESENT: normal capillary refill GI/Abdominal exam: PRESENT: normal bowel sounds, soft. ABSENT: distended, guarding, mass, organolmegaly, rebound, tenderness Rectal exam: PRESENT: deferred Extremities exam: PRESENT: full ROM. ABSENT: calf tenderness, clubbing, pedal edema Neurological exam: PRESENT: alert, awake, oriented to person, oriented to place , oriented to time, oriented to situation. ABSENT: motor sensory deficit Psychiatric exam: PRESENT: appropriate affect, normal mood. ABSENT: homicidal ideation, suicidal ideation Skin exam: PRESENT: dry, intact, warm. ABSENT: cyanosis, rash Results Laboratory Results: 05/09/17 10:35 05/10/17 10:07 05/10/17 10:07 Sodium 137.2 Potassium 4.9 Chloride 99 Carbon Dioxide 25 Anion Gap 13 BUN 46 H Creatinine 1.93 H Est GFR ( Amer) 40 L Est GFR (Non-Af Amer) 33 L Glucose 502 H* Calcium 9.4 Magnesium 2.0 Impressions: Chest X-Ray 05/06/17 16:21 IMPRESSION: RIGHT LOWER LOBE DENSITY SUSPICIOUS FOR PNEUMONIA. CARDIOMEGALY WITH BORDERLINE VASCULAR CONGESTION. Transfer Plan - Disposition Transfer Plan: Patient is being transferred back to [facility] to continue his care. Patient should continue with physical therapy. - Time Spent with Patient Time spent with patient: Greater than 30 Minutes Qualifiers PATEINT BEING DISCHARGED WITH ANY OF THE FOLLOWING DIAGNOSIS?: No Plan Time Spent: Greater than 30 Minutes
[2017-05-10 21:53] VITALS: BP 142/63
[2017-05-10] MEDS: ATORVASTATIN CALCIUM 10 MG TABLET PO SCH (22:28)
[2017-05-10] MEDS: TRAZODONE HCL 50 MG TABLET PO SCH (22:28)
== END 2017-05-10 22:30 | DRG 194 ==
LOC: ER 16:06 → EH 21:24 → 4S 05-07 14:37
PROVIDERS: ADMIT Internal Medicine; ATTEND Internal Medicine
PROC: 5A09457 Assistance with Respiratory Ventilation, 24-96 Consecutive Hours, Continuous Positive Airway Pressure (ICD-10-PCS; principal; 2017-05-07)
PROC: 3E0F73Z Introduction of Anti-inflammatory into Respiratory Tract, Via Natural or Artificial Opening (ICD-10-PCS; 2017-05-07)
DX: J18.9 Pneumonia, unspecified organism (principal); N17.9 Acute kidney failure, unspecified; J44.0 Chronic obstructive pulmonary disease with (acute) lower respiratory infection; G47.33 Obstructive sleep apnea (adult) (pediatric); I25.10 Atherosclerotic heart disease of native coronary artery without angina pectoris; N18.3 Chronic kidney disease, stage 3 (moderate); I12.9 Hypertensive chronic kidney disease with stage 1 through stage 4 chronic kidney disease, or unspecified chronic kidney disease; E11.22 Type 2 diabetes mellitus with diabetic chronic kidney disease; M15.9 Polyosteoarthritis, unspecified; E11.51 Type 2 diabetes mellitus with diabetic peripheral angiopathy without gangrene; F32.9 Major depressive disorder, single episode, unspecified; D63.1 Anemia in chronic kidney disease; F03.90 Unspecified dementia, unspecified severity, without behavioral disturbance, psychotic disturbance, mood disturbance, and anxiety; E78.00 Pure hypercholesterolemia, unspecified; I25.2 Old myocardial infarction; Z99.81 Dependence on supplemental oxygen; Z79.899 Other long term (current) drug therapy; Z95.1 Presence of aortocoronary bypass graft; Z88.0 Allergy status to penicillin; Z79.84 Long term (current) use of oral hypoglycemic drugs; Z83.6 Family history of other diseases of the respiratory system; Z86.73 Personal history of transient ischemic attack (TIA), and cerebral infarction without residual deficits
CPT/HCPCS: 36415; 71045; 80048; 80053; 81001; 82803; 82962; 83605; 83735; 85025; 85610; 87040; 87086; 87804; 93005; 93010; 94640; 94660; 96365; 99285; G8978-GP; G8979-GP; G8987-GO; G8988-GO; G8989-GO; G8996-GN; G8997-GN; G8998-GN; J1644; J1815; J1940; J1956; J2920; J3370; J3490; J7030; J7060; J7620

== ENCOUNTER 2017-10-13 19:50 | Emergency (ER) | payer MEDICAID, MEDICARE ==
[2017-10-13] MEDS ORDERED: METOCLOPRAMIDE HCL INJ/PF 10 MG/2 ML SDV IV ONE (20:44)
--- NOTE | 2017-10-13 20:48 | ER Document Report ---
ED General - General Stated Complaint: HEADACHE Time Seen by Provider: 10/13/17 20:04 Cannot obtain history due to: Dementia Notes: Patient is an 82-year-old male who presents by EMS from [facility] with concerns of a headache. The patient describes this as a left-sided headache that is a dull, throbbing, constant headache. States that it started relatively abruptly but has been worsening since that time. He states he took Tylenol without any relief and was therefore sent to the emergency department. He is uncertain of whether or not he has a history of similar headaches in the past. He denies any focal weakness or numbness. History is otherwise limited as patient is demented and quite terse during history taking. TRAVEL OUTSIDE OF THE [place] IN LAST 30 DAYS: No - Related Data Allergies/Adverse Reactions: Penicillins Allergy (Verified 09/19/15 18:36) swelling Past Medical History - General Information source: Patient, Transfer Record, Emergency Med Personnel Cannot obtain history due to: Dementia - Social History Smoking Status: Former Smoker Frequency of alcohol use: None Drug Abuse: None Lives with: Group Home Family History: COPD - Past Medical History Cardiac Medical History: Reports: Hx Coronary Artery Disease, Hx Heart Attack - 2000, Hx Hypercholesterolemia, Hx Hypertension, Hx Peripheral Vascular Disease Pulmonary Medical History: Reports: Hx COPD, Hx Pneumonia - 2013 Neurological Medical History: Reports: Hx Cerebrovascular Accident Endocrine Medical History: Reports: Hx Diabetes Mellitus Type 2 Renal/ Medical History: Reports: Hx Kidney Stones. Denies: Hx Peritoneal Dialysis Musculoskeltal Medical History: Reports Hx Arthritis - Generalized Psychiatric Medical History: Reports: Hx Depression Past Surgical History: Reports: Hx Cardiac Catheterization, Hx Cardiac Surgery - Open heart - triple bypass., Hx Coronary Artery Bypass Graft - x3, Hx Kidney ( Renal Surgery) - Kidney stone, Hx Open Heart Surgery - TRIPLE BYPASS - Immunizations Hx Diphtheria, Pertussis, Tetanus Vaccination: No Hx Pneumococcal Vaccination: 01/05/14 Review of Systems - Review of Systems Notes: Constitutional: Negative for fever. HENT: Negative for sore throat. Eyes: Negative for visual changes. Cardiovascular: Negative for chest pain. Respiratory: Negative for shortness of breath. Gastrointestinal: Negative for abdominal pain, vomiting or diarrhea. Genitourinary: Negative for dysuria. Musculoskeletal: Negative for back pain. Skin: Negative for rash. Neurological: Positive for headache 10 point ROS negative except as marked above and in HPI. Physical Exam - Vital signs Vitals: Pulse Resp BP Pulse Ox 103 H 12 107/87 H 94 10/13/17 22:57 10/13/17 22:57 10/13/17 22:57 10/13/17 22:57 Interpretation: Tachycardic Notes: PHYSICAL EXAMINATION: GENERAL: Appears stated age, no acute distress HEAD: Atraumatic, normocephalic. EYES: Pupils equal round and reactive to light, extraocular movements intact, sclera anicteric, conjunctiva are normal. ENT: nares patent, oropharynx clear without exudates. Moist mucous membranes. NECK: Normal range of motion, supple without lymphadenopathy LUNGS: Breath sounds clear to auscultation bilaterally and equal. No wheezes rales or rhonchi. HEART: Regular rate and rhythm without murmurs ABDOMEN: Soft, nontender, normoactive bowel sounds. No guarding, no rebound. No masses appreciated. EXTREMITIES: Normal range of motion, no pitting or edema. No cyanosis. NEUROLOGICAL: Face symmetric. Tongue protrudes midline. 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 Pupillary reflex intact on the right with intact extraocular motions. normal speech 5 out of 5 strength in both the distal and proximal upper and lower extremities bilaterally. Sensation is grossly intact throughout. PSYCH: Alert, oriented to person and place SKIN: Warm, Dry, normal turgor, no rashes or lesions noted. Course - Re-evaluation Re-evalutation: 10/13/17 20:47 Patient presents with a relatively abrupt onset of a left-sided headache found to have possible mild right-sided weakness although it is difficult to tell as the patient is demented, somewhat agitated, resists talking to me during examination or compliant with examination. However given patient's age and history he will immediately go for a CT of the head to further evaluate for possible acute intracranial bleed. He has also been noted to be mildly hypoxic , 88% on room air. The patient states that he does not normally use supplemental oxygen but review of his most recent hospitalization shows that he was discharged home on 2 L by nasal cannula for COPD. Will also obtain a chest x-ray basic laboratories. 10/13/17 21:11 CT of the head does not show any acute intracranial bleed. A notation is made of possible normal pressure hydrocephalus although the acute onset the patient' s headache and lack of additional symptoms such as ataxia, urinary incontinence , or inability to ambulate are not consistent with such a diagnosis. Awaiting remainder of labs and chest x-ray results. 10/13/17 22:37 Patient's headache has improved. Labs show chronic kidney disease, unchanged from prior. CRP negative ESR minimally elevated, below the threshold that would suggest a temporal arteritis and patient's clinical history likewise does not suggest this diagnosis. No indication to start steroids at this time point. At this time will discharge with return precautions and follow-up recommendations. Verbal discharge instructions given a the bedside and opportunity for questions given. Medication warnings reviewed. Patient is in agreement with this plan and has verbalized understanding of return precautions and the need for primary care follow-up in the next 24-72 hours. 10/14/17 03:49 - Vital Signs Vital signs: Temp Pulse Resp BP Pulse Ox 103 H 12 107/87 H 94 10/13/17 22:57 10/13/17 23:12 10/13/17 22:57 10/13/17 23:12 - Laboratory Result Diagrams: 10/13/17 21:23 10/13/17 21:23 Laboratory results interpreted by me: 10/13/17 10/13/17 21:23 21:23 RBC 4.00 L Hgb 11.6 L Hct 34.5 L RDW 14.9 H ESR 62 H BUN 42 H Creatinine 2.05 H Est GFR ( Amer) 38 L Est GFR (Non-Af Amer) 31 L Glucose 195 H - Diagnostic Test Radiology reviewed: Image reviewed, Reports reviewed Radiology results interpreted by me: 10/13/17 22:37 CT head: No acute intracranial bleed Discharge - Discharge Clinical Impression: Acute headache Qualifiers: Headache type: unspecified Intractability: not intractable Qualified Code(s): R51 - Headache COPD (chronic obstructive pulmonary disease) Qualifiers: COPD type: unspecified COPD Qualified Code(s): J44.9 - Chronic obstructive pulmonary disease, unspecified Condition: Good Disposition: HOME, SELF-CARE Additional Instructions: You have been seen in the Emergency Department (ED) for a headache. Please use Tylenol (acetaminophen) as needed for symptoms, but only as written on the box. As we have discussed, please follow up with your primary care doctor as soon as possible regarding today's ED visit and your headache symptoms. Call your doctor or return to the ED if you have a worsening headache, sudden and severe headache, confusion, slurred speech, facial droop, weakness or numbness in any arm or leg, extreme fatigue, or other symptoms that concern you. Referrals: MELE WEN MD [Primary Care Provider] - Follow up as needed
--- NOTE | 2017-10-13 21:08 | RADIOLOGY REPORT (SQ) ---
EXAM DESCRIPTION: CT HEAD WITHOUT COMPLETED DATE/TIME: 10/13/2017 8:59 pm REASON FOR STUDY: headache, acute onset COMPARISON: 11/01/2015 TECHNIQUE: Axial images acquired through the brain without intravenous contrast. Images reviewed wi th bone, brain and subdural windows. Additional sagittal and coronal reconstructions were generated. Images stored on PACS. All CT scanners at this facility use dose modulation, iterative reconstruction, and/or weight based d osing when appropriate to reduce radiation dose to as low as reasonably achievable (ALARA). [facility]: Dose Right [facility]: CareDose [facility]: Dose Right [facility]: Teradose 4D [facility]: Smart [employer] RADIATION DOSE: CT Rad equipment meets quality standard of care and radiation dose reduction techniq ues were employed. CTDIvol: 53.2 mGy. DLP: 1070 mGy-cm.mGy. LIMITATIONS: None. FINDINGS: VENTRICLES: Prominent. Out of proportion to the degree of sulcal prominence. Suggests no rmal pressure hydrocephalus. CEREBRUM: No masses. No hemorrhage. No midline shift. Areas of low density in the white matter mos t likely due to chronic micro-vascular ischemic change. No evidence for acute infarction. CEREBELLUM: No masses. No hemorrhage. No alteration of density. No evidence for acute infarction. EXTRAAXIAL SPACES: Age-related involutional change. No fluid collections. No masses. ORBITS AND GLOBE: No intra- or extraconal masses. Normal contour of globe without masses. CALVARIUM: No fracture. PARANASAL SINUSES: No fluid or mucosal thickening. SOFT TISSUES: No mass or hematoma. OTHER: No other significant finding. IMPRESSION: CHRONIC CHANGES OF ATROPHY AND MICROVASCULAR ISCHEMIA. NO ACUTE PROCESS. Possible norm al pressure hydrocephalus. EVIDENCE OF ACUTE STROKE: NO. TECHNICAL DOCUMENTATION: JOB ID: [id number] Quality ID # [id number]: Final reports with documentation of one or more dose reduction techniques (e.g., Au tomated exposure control, adjustment of the mA and/or kV according to patient size, use of iterative reconstruction technique) 2010 [employer]- All Rights Reserved Reading location - IP/workstation name: [email or web address]
--- NOTE | 2017-10-13 21:21 | RADIOLOGY REPORT (SQ) ---
EXAM DESCRIPTION: CHEST SINGLE VIEW COMPLETED DATE/TIME: 10/13/2017 9:08 pm REASON FOR STUDY: hypoxia COMPARISON: None. NUMBER OF VIEWS: One view. TECHNIQUE: Single frontal radiographic view of the chest acquired. LIMITATIONS: None. FINDINGS: LUNGS AND PLEURA: Basilar atelectasis. No effusions. MEDIASTINUM AND HILAR STRUCTURES: No masses. Contour normal. HEART AND VASCULAR STRUCTURES: Heart normal in size. Normal vasculature. Prior CABG. BONES: No acute findings. HARDWARE: CABG hardware. OTHER: No other significant finding. IMPRESSION: Basilar atelectasis. TECHNICAL DOCUMENTATION: JOB ID: [id number] [employer]- All Rights Reserved Reading location - IP/workstation name: [email or web address]
[2017-10-13 21:42] LABS: ABSOLUTE BASOPHILS # (AUTO) 0.1 10^3/uL (0.0-0.2); ABSOLUTE EOSINOPHILS # (AUTO) 0.3 10^3/uL (0.0-0.6); ABSOLUTE LYMPHOCYTES (AUTO) 2.2 10^3/uL (0.5-4.7); ABSOLUTE MONOCYTES (AUTO) 0.6 10^3/uL (0.1-1.4); ABSOLUTE NEUT (AUTO) 5.7 10^3/uL (1.7-8.2); BASOPHILS % (AUTO) 0.6 % (0-2); EOSINOPHILS % (AUTO) 3.6 % (0-6); HEMATOCRIT 34.5 % (37.9-51.0); HEMOGLOBIN 11.6 g/dL (13.5-17.0); LYMPHOCYTES % (AUTO) 24.6 % (13-45); MEAN CORPUSCULAR HEMOGLOBIN 28.9 pg (27.0-33.4); MEAN CORPUSCULAR HGB CONC 33.5 g/dL (32.0-36.0); MEAN CORPUSCULAR VOLUME 86 fl (80-97); MONOCYTES % (AUTO) 6.6 % (3-13); PLATELET COUNT 193 10^3/uL (150-450); RED CELL DISTRIBUTION WIDTH 14.9 % (11.5-14.0); SEGMENTED NEUTROPHILS % (AUTO) 64.6 % (42-78); TOTAL CELLS COUNTED % (AUTO) 100 %; WHITE BLOOD COUNT 8.8 10^3/uL (4.0-10.5)
[2017-10-13 22:03] LABS: ANION GAP 14 (5-19); BLOOD UREA NITROGEN 42 mg/dL (7-20); CALCIUM 9.9 mg/dL (8.4-10.2); CARBON DIOXIDE 27 mmol/L (22-30); CHLORIDE 104 mmol/L (98-107); GLUCOSE 195 mg/dL (75-110); POTASSIUM 4.8 mmol/L (3.6-5.0)
[2017-10-13 22:06] LABS: C-REACTIVE PROTEIN < 5.0 mg/L (<10.0)
[2017-10-13 22:21] LABS: ERYTHROCYTE SEDIMENTATION RATE 62 mm/hr (0-20)
[2017-10-13 22:59] VITALS: BP 107/87
== END 2017-10-13 23:14 | disposition home or self-care (01) ==
LOC: ER 19:50
DX: J44.9 Chronic obstructive pulmonary disease, unspecified (principal); R51 Headache; I25.10 Atherosclerotic heart disease of native coronary artery without angina pectoris; I25.2 Old myocardial infarction; E11.9 Type 2 diabetes mellitus without complications
CPT/HCPCS: 99285; 96374; 36415; 85025; 85652; 86140; 80048; 71045; 70450; J2765

== ENCOUNTER 2017-10-31 09:45 | Emergency (ER) | payer MEDICARE ==
[2017-10-31 10:35] LABS: ABSOLUTE EOSINOPHILS # (AUTO) 0.1 10^3/uL (0.0-0.6); ABSOLUTE LYMPHOCYTES (AUTO) 0.7 10^3/uL (0.5-4.7); ABSOLUTE MONOCYTES (AUTO) 0.4 10^3/uL (0.1-1.4); ABSOLUTE NEUT (AUTO) 5.3 10^3/uL (1.7-8.2); BASOPHILS % (AUTO) 0.3 % (0-2); EOSINOPHILS % (AUTO) 1.4 % (0-6); HEMATOCRIT 34.1 % (37.9-51.0); HEMOGLOBIN 11.7 g/dL (13.5-17.0); LYMPHOCYTES % (AUTO) 11.1 % (13-45); MEAN CORPUSCULAR HEMOGLOBIN 29.4 pg (27.0-33.4); MEAN CORPUSCULAR HGB CONC 34.4 g/dL (32.0-36.0); MEAN CORPUSCULAR VOLUME 85 fl (80-97); MONOCYTES % (AUTO) 5.8 % (3-13); PLATELET COUNT 171 10^3/uL (150-450); RED BLOOD COUNT 3.99 10^6/uL (4.35-5.55); RED CELL DISTRIBUTION WIDTH 14.7 % (11.5-14.0); SEGMENTED NEUTROPHILS % (AUTO) 81.4 % (42-78); TOTAL CELLS COUNTED % (AUTO) 100 %; WHITE BLOOD COUNT 6.6 10^3/uL (4.0-10.5)
[2017-10-31 10:56] LABS: ALANINE AMINOTRANSFERASE 20 U/L (21-72); ALBUMIN 4.3 g/dL (3.5-5.0); ALKALINE PHOSPHATASE 55 U/L (38-126); ANION GAP 17 (5-19); ASPARTATE AMINO TRANSFERASE 18 U/L (17-59); BILIRUBIN,DIRECT 0.3 mg/dL (0.0-0.4); BILIRUBIN,TOTAL 0.6 mg/dL (0.2-1.3); BLOOD UREA NITROGEN 36 mg/dL (7-20); CALCIUM 9.5 mg/dL (8.4-10.2); CARBON DIOXIDE 25 mmol/L (22-30); CHLORIDE 103 mmol/L (98-107); CREATINE KINASE 146 U/L (55-170); GLUCOSE 126 mg/dL (75-110); POTASSIUM 4.7 mmol/L (3.6-5.0); SODIUM 145.3 mmol/L (137-145); TOTAL PROTEIN 7.7 g/dL (6.3-8.2)
--- NOTE | 2017-10-31 10:59 | ER Document Report ---
ED General <WILLIAMJOSÉ MIGUEL - Last Filed: 10/31/17 12:55> - General Mode of Arrival: Ambulatory Information source: Patient TRAVEL OUTSIDE OF THE [place] IN LAST 30 DAYS: No <BART HAWTHORNE - Last Filed: 10/31/17 15:02> - General Chief Complaint: General Weakness Stated Complaint: GENERALIZED WEAKNESS Time Seen by Provider: 10/31/17 10:47 Notes: 82-year-old male who presents to the emergency department today with complaints of generalized weakness. Patient states he is unable to stand or walk secondary to this weakness. Patient states he has not fallen recently. Patient was seen here a few days ago for a headache which he states has not resolved. Patient denies any cough. (BART HAWTHORNE) - Related Data Allergies/Adverse Reactions: Penicillins Allergy (Verified 10/31/17 10:23) swelling Past Medical History - General Information source: Patient - Social History Smoking Status: Never Smoker Cigarette use (# per day): No Frequency of alcohol use: None Drug Abuse: None Lives with: Family Family History: COPD Patient has suicidal ideation: No Patient has homicidal ideation: No - Past Medical History Cardiac Medical History: Reports: Hx Coronary Artery Disease, Hx Heart Attack - 2000, Hx Hypercholesterolemia, Hx Hypertension, Hx Peripheral Vascular Disease Pulmonary Medical History: Reports: Hx COPD, Hx Pneumonia - 2013 Neurological Medical History: Reports: Hx Cerebrovascular Accident Endocrine Medical History: Reports: Hx Diabetes Mellitus Type 2 Renal/ Medical History: Reports: Hx Kidney Stones Musculoskeletal Medical History: Reports Hx Arthritis - Generalized Psychiatric Medical History: Reports: Hx Depression Past Surgical History: Reports: Hx Cardiac Catheterization, Hx Cardiac Surgery - Open heart - triple bypass., Hx Coronary Artery Bypass Graft - x3, Hx Kidney ( Renal Surgery) - Kidney stone, Hx Open Heart Surgery - TRIPLE BYPASS - Immunizations Hx Diphtheria, Pertussis, Tetanus Vaccination: No Hx Pneumococcal Vaccination: 01/05/14 <BART HAWTHORNE - Last Filed: 10/31/17 15:02> Review of Systems - Review of Systems Constitutional: See HPI, Weakness EENT: No symptoms reported Cardiovascular: No symptoms reported Respiratory: denies: Cough Gastrointestinal: No symptoms reported Genitourinary: No symptoms reported Male Genitourinary: No symptoms reported Musculoskeletal: No symptoms reported Skin: No symptoms reported Hematologic/Lymphatic: No symptoms reported Neurological/Psychological: No symptoms reported -: Yes All other systems reviewed and negative <BART HAWTHORNE - Last Filed: 10/31/17 15:02> Physical Exam <JOSÉ MIGUEL THOMAS - Last Filed: 10/31/17 12:55> <BART HAWTHORNE - Last Filed: 10/31/17 15:02> - Vital signs Vitals: Temp Resp BP Pulse Ox 97.8 F 16 124/59 L 95 10/31/17 09:51 10/31/17 09:51 10/31/17 09:51 10/31/17 09:51 - Notes Notes: Physical Exam: General: Alert, appears well. HEENT: Normocephalic. Atraumatic. PERRL. Extraocular movements intact. Oropharynx clear. Left eye missing, lids closed and sunken in. Neck: Supple. Non-tender. Respiratory: No respiratory distress. Clear and equal breath sounds bilaterally. Cardiovascular: Regular rate and rhythm. Abdominal: Normal Inspection. Non-tender. No distension. Normal Bowel Sounds. Back: Non-tender. No deformity or step off. Extremities: Moves all four extremities. Upper extremities: Normal inspection. Normal ROM. Lower extremities: Normal inspection. No edema. Normal ROM. Neurological: Normal cognition. AAOx4. Normal speech. Psychological: Normal affect. Normal Mood. Skin: Warm. Dry. Normal color. (BART HAWTHORNE) Course - Laboratory Result Diagrams: 10/31/17 10:03 10/31/17 10:03 - EKG Interpretation by Md EKG shows normal: Sinus rhythm, Joffre, Intervals, QRS Complexes, ST-T Waves Rate: Normal - 85 Rhythm: NSR Joffre/QRS: RBBB When compared to previous EKG there are: No significant change <JOSÉ MIGUEL THOMAS - Last Filed: 10/31/17 12:55> - Laboratory Result Diagrams: 10/31/17 10:03 10/31/17 10:03 <BART HAWTHORNE - Last Filed: 10/31/17 15:02> - Re-evaluation Re-evalutation: 10/31/17 12:51 Patient was catheterized for his UA, there were 350 mL's of urine and some blood came out at the very end and this did contaminate the specimen that went to the lab. (JOSÉ MIGUEL THOMAS) - Vital Signs Vital signs: Temp Pulse Resp BP Pulse Ox 97.8 F 29 H 121/68 97 10/31/17 09:51 10/31/17 13:24 10/31/17 13:24 10/31/17 13:24 - Laboratory Laboratory results interpreted by me: 10/31/17 10/31/17 10/31/17 10:03 10:03 12:00 RBC 3.99 L Hgb 11.7 L Hct 34.1 L RDW 14.7 H Seg Neutrophils % 81.4 H Lymphocytes % 11.1 L Sodium 145.3 H BUN 36 H Creatinine 1.94 H Est GFR ( Amer) 40 L Est GFR (Non-Af Amer) 33 L Glucose 126 H ALT 20 L Urine Protein 30 H Urine Blood LARGE H Discharge <JOSÉ MIGUEL THOMAS - Last Filed: 10/31/17 12:55> <BART HAWTHORNE - Last Filed: 10/31/17 15:02> - Discharge Clinical Impression: Weakness Condition: Stable Disposition: HOME-SNF (ED ONLY) Additional Instructions: Weakness We did not find a definite cause for your weakness. This may require further medical tests. Weakness can be caused by infection, physical exhaustion , rapid weight loss, dehydration, or medicine side effects. Diseases of the muscles, heart, nerves, and blood vessels can make you weak. Sometimes the problem is simply depression or lack of exercise. You should get plenty of rest. Unless the doctor tells you otherwise, it's usually best to add short periods of regular mild exercise. Eat a nutritious diet with multiple small, low-sugar meals. If symptoms continue, additional medical evaluation will be necessary. Be sure to follow up as instructed. If you become very dizzy, nauseated, or feel like you're going to faint, lie down right away. Wait until the symptoms have passed before you get up again. Stand up slowly. Call the doctor or return if you develop chest pain, abdominal pain, severe headache, irregular heartbeat or very fast pulse, confusion, vision problems, fever, muscular pain, or any other new symptom. Referrals: MELE WEN MD [Primary Care Provider] - Follow up as needed Scribe Attestation: 10/31/17 12:55 I personally performed the services described in the documentation, reviewed and edited the documentation which was dictated to the scribe in my presence, and it accurately records my words and actions. (JOSÉ MIGUEL THOMAS) Scribe Documentation - Scribe Written by Scribe:: Jose Maria Hendrickson, 10/31/2017 1502 acting as scribe for :: William <BART HAWTHORNE - Last Filed: 10/31/17 15:02>
[2017-10-31 11:04] LABS: CREATINE KINASE MB 0.57 ng/mL (<4.55)
[2017-10-31 11:05] LABS: TROPONIN I < 0.012 ng/mL
[2017-10-31 11:08] VITALS: BP 121/68
[2017-10-31 12:18] LABS: APPEARANCE,URINE SLIGHTLY-CLOUDY; BILIRUBIN,URINE NEGATIVE (NEGATIVE); COLOR,URINE YELLOW; GLUCOSE, URINE NEGATIVE (NEGATIVE); KETONES,URINE NEGATIVE (NEGATIVE); LEUKOCYTE ESTERASE,URINE NEGATIVE (NEGATIVE); NITRITE,URINE NEGATIVE (NEGATIVE); PROTEIN,URINE 30 mg/dL (NEGATIVE); URINE SPECIFIC GRAVITY 1.015; UROBILINOGEN,URINE NEGATIVE mg/dL (<2.0)
--- NOTE | 2017-10-31 22:53 | EKG REPORT ---
SEVERITY:- ABNORMAL ECG - SINUS OR ECTOPIC ATRIAL RHYTHM RIGHT BUNDLE BRANCH BLOCK : Confirmed by: Maximilian Deras 31-Oct-2017 22:52:53
== END 2017-10-31 15:48 ==
LOC: ER 09:45
DX: R53.1 Weakness (principal); R51 Headache; R05 Cough; I45.10 Unspecified right bundle-branch block; I25.10 Atherosclerotic heart disease of native coronary artery without angina pectoris; I10 Essential (primary) hypertension; I25.2 Old myocardial infarction; E11.51 Type 2 diabetes mellitus with diabetic peripheral angiopathy without gangrene; Z88.0 Allergy status to penicillin; Z95.1 Presence of aortocoronary bypass graft
CPT/HCPCS: 36415; 51701; 80053; 81001; 82550; 82553; 84484; 85025; 93005; 93010; 99285

== ENCOUNTER → 2018-11-10 | Outpatient (CLI) | payer MEDICARE, MEDICAID ==
--- NOTE | 2018-11-10 13:26 | RADIOLOGY REPORT (SQ) ---
EXAM DESCRIPTION: CT CHEST WITHOUT COMPLETED DATE/TIME: 11/10/2018 9:35 am REASON FOR STUDY: SOLITARY PULMONARY NODULE (R91.1) R91.1 SOLITARY PULMONARY NODULE COMPARISON: 07/14/2014 TECHNIQUE: CT scan performed of the chest without intravenous contrast. Images reviewed with lung, soft tissue and bone windows. Reconstructed coronal and sagittal MPR images reviewed. All images st ored on PACS. All CT scanners at this facility use dose modulation, iterative reconstruction, and/or weight based d osing when appropriate to reduce radiation dose to as low as reasonably achievable (ALARA). [facility]: Dose Right [facility]: CareDose [facility]: Dose Right [facility]: Teradose 4D [facility]: [employer] RADIATION DOSE: CT Rad equipment meets quality standard of care and radiation dose reduction techniq ues were employed. CTDIvol: 10.8 mGy. DLP: 429 mGy-cm. mGy. LIMITATIONS: No technical limitations. FINDINGS: LUNGS AND PLEURA: 3 x 8 mm stable right pulmonary nodule. Minimal subsegmental atelectasi s in the lower lobes and right middle lobe. No pulmonary infiltrate or pleural effusion. HILAR AND MEDIASTINAL STRUCTURES: No identified masses or abnormal nodes. No obvious aneurysm. HEART AND VASCULAR STRUCTURES: No aneurysm. Aortic and coronary atherosclerosis. Prior CABG. UPPER ABDOMEN: No significant findings. Limited exam. THYROID AND OTHER SOFT TISSUES: No masses. No adenopathy. BONES: No significant finding. HARDWARE: Sternotomy wires. OTHER: No other significant findings. IMPRESSION: Stable small) 1 area nodule. Atherosclerosis. TECHNICAL DOCUMENTATION: JOB ID: [id number] Quality ID # [id number]: Final reports with documentation of one or more dose reduction techniques (e.g., Au tomated exposure control, adjustment of the mA and/or kV according to patient size, use of iterative reconstruction technique) 2010 [employer]- All Rights Reserved Reading location - IP/workstation name: [email or web address]
== END ==
LOC: RAD 09:22
PROVIDERS: ATTEND Registered Nurse
DX: R91.1 Solitary pulmonary nodule (principal); I25.10 Atherosclerotic heart disease of native coronary artery without angina pectoris
CPT/HCPCS: 71250

== ENCOUNTER 2019-06-13 05:48 | Emergency (ER) | payer MEDICARE, MEDICAID ==
[2019-06-13 07:33] LABS: ABSOLUTE EOSINOPHILS # (AUTO) 0.1 10^3/uL (0.0-0.6); ABSOLUTE MONOCYTES (AUTO) 0.8 10^3/uL (0.1-1.4); BASOPHILS % (AUTO) 0.4 % (0-2); EOSINOPHILS % (AUTO) 1.3 % (0-6); HEMATOCRIT 32.2 % (37.9-51.0); HEMOGLOBIN 11.1 g/dL (13.5-17.0); LYMPHOCYTES % (AUTO) 12.4 % (13-45); MEAN CORPUSCULAR HEMOGLOBIN 30.4 pg (27.0-33.4); MEAN CORPUSCULAR HGB CONC 34.6 g/dL (32.0-36.0); MEAN CORPUSCULAR VOLUME 88 fl (80-97); PLATELET COUNT 143 10^3/uL (150-450); RED BLOOD COUNT 3.67 10^6/uL (4.35-5.55); RED CELL DISTRIBUTION WIDTH 14.5 % (11.5-14.0); SEGMENTED NEUTROPHILS % (AUTO) 75.9 % (42-78); TOTAL CELLS COUNTED % (AUTO) 100 %; WHITE BLOOD COUNT 7.9 10^3/uL (4.0-10.5)
[2019-06-13 07:51] LABS: ALBUMIN 4.3 g/dL (3.5-5.0); ALKALINE PHOSPHATASE 69 U/L (38-126); ANION GAP 11 (5-19); ASPARTATE AMINO TRANSFERASE 33 U/L (17-59); BILIRUBIN,DIRECT 0.3 mg/dL (0.0-0.4); BILIRUBIN,TOTAL 0.6 mg/dL (0.2-1.3); BLOOD UREA NITROGEN 32 mg/dL (7-20); CALCIUM 9.5 mg/dL (8.4-10.2); CARBON DIOXIDE 30 mmol/L (22-30); CHLORIDE 102 mmol/L (98-107); GLUCOSE 169 mg/dL (75-110); POTASSIUM 4.9 mmol/L (3.6-5.0); TOTAL PROTEIN 7.9 g/dL (6.3-8.2)
--- NOTE | 2019-06-13 07:53 | RADIOLOGY REPORT (SQ) ---
EXAM DESCRIPTION: XR CHEST 1 VIEW COMPLETED DATE/TME: 06/13/2019 06:36 CLINICAL HISTORY: 84 years, Male, coughing, SOB COMPARISON: 10/13/2017 NUMBER OF VIEWS: One TECHNIQUE: AP view the chest LIMITATIONS: None. FINDINGS: The lungs are clear. The heart is enlarged. There is no pneumothorax or pleural effusion. Median sternotomy wires are noted. The bones are unremarkable. IMPRESSION: No acute cardiopulmonary abnormality copyright 2010 [email or web address]- All Rights Reserved
[2019-06-13 08:17] LABS: APPEARANCE,URINE SLIGHTLY-CLOUDY; BILIRUBIN,URINE NEGATIVE (NEGATIVE); COLOR,URINE YELLOW; GLUCOSE, URINE NEGATIVE (NEGATIVE); KETONES,URINE NEGATIVE (NEGATIVE); LEUKOCYTE ESTERASE,URINE NEGATIVE (NEGATIVE); NITRITE,URINE NEGATIVE (NEGATIVE); PROTEIN,URINE 100 mg/dL (NEGATIVE); URINE SPECIFIC GRAVITY 1.016; UROBILINOGEN,URINE NEGATIVE mg/dL (<2.0)
[2019-06-13] MEDS ORDERED: IPRATROPIUM/ALBUTEROL 0.5-2.5 MG/3 ML AMPUL NEB ONE (09:13)
[2019-06-13] MEDS ORDERED: BENZONATATE 100 MG CAPSULE PO ONE (09:14)
--- NOTE | 2019-06-13 09:37 | ER Document Report ---
ED General - General Chief Complaint: Congestion Stated Complaint: SORE THROAT,CONGESTION Time Seen by Provider: 06/13/19 08:52 Primary Care Provider: DENILSON CARLOS MD [Primary Care Provider] - Follow up as needed Notes: 84-year-old male with history of using CPAP at night presents for nonproductive cough, congestion, and sore throat for 1 week. [facility] coming from [facility]. Patient denies any nausea/vomiting or abdominal pain. TRAVEL OUTSIDE OF THE [place] IN LAST 30 DAYS: No - Related Data Allergies/Adverse Reactions: Penicillins Allergy (Verified 06/13/19 05:58) swelling Past Medical History - Social History Smoking Status: Unknown if Ever Smoked Family History: COPD Patient has suicidal ideation: No Patient has homicidal ideation: No - Past Medical History Cardiac Medical History: Reports: Hx Coronary Artery Disease, Hx Heart Attack - 2000, Hx Hypercholesterolemia, Hx Hypertension, Hx Peripheral Vascular Disease Pulmonary Medical History: Reports: Hx COPD, Hx Pneumonia - 2013 Neurological Medical History: Reports: Hx Cerebrovascular Accident Endocrine Medical History: Reports: Hx Diabetes Mellitus Type 2 Renal/ Medical History: Reports: Hx Kidney Stones. Denies: Hx Peritoneal Dialysis Musculoskeletal Medical History: Reports Hx Arthritis - Generalized Psychiatric Medical History: Reports: Hx Depression Past Surgical History: Reports: Hx Cardiac Catheterization, Hx Cardiac Surgery - Open heart - triple bypass., Hx Coronary Artery Bypass Graft - x3, Hx Kidney (Renal Surgery) - Kidney stone, Hx Open Heart Surgery - TRIPLE BYPASS - Immunizations Hx Diphtheria, Pertussis, Tetanus Vaccination: No Hx Pneumococcal Vaccination: 01/05/14 Review of Systems - Review of Systems Notes: Constitutional: Negative for fever. HENT: Positive for sore throat, nonproductive cough, and congestion. Eyes: Negative for visual changes. Cardiovascular: Negative for chest pain. Respiratory: Negative for shortness of breath. Gastrointestinal: Negative for abdominal pain, vomiting or diarrhea. Genitourinary: Negative for dysuria. Musculoskeletal: Negative for back pain. Skin: Negative for rash. Neurological: Negative for headaches, weakness or numbness. 10 point ROS negative except as marked above and in HPI. Physical Exam - Vital signs Vitals: BP 172/47 H 06/13/19 05:59 - Notes Notes: GENERAL: Well-appearing, well-nourished and in no acute distress. HEAD: Atraumatic, normocephalic. EYES: Extraocular movements intact, sclera anicteric, conjunctiva are normal. ENT: Nares patent, oropharynx clear without exudates. No tonsilar hypertrophy. Uvula midline without edema. Moist mucous membranes. NECK: Normal range of motion, supple without lymphadenopathy or JVD. LUNGS: Mildly decreased breath sounds. No wheezing, rales, or rhonchi. No tachypnea. HEART: Regular rate and rhythm without murmurs, rubs or gallops. EXTREMITIES: Normal range of motion, no pitting or edema. No clubbing or cyanosis. NEUROLOGICAL: Cranial nerves II through XII grossly intact. Normal speech, normal gait. PSYCH: Normal mood, normal affect. SKIN: Warm, Dry, normal turgor, no rashes or lesions noted. Course - Re-evaluation Re-evalutation: 06/13/19 Nontoxic, well appearing 84 y/o male presents for sore throat, nonproductive cough, and congestion for 1 week. Pt's O2 initially was in low 90s and pt was placed on O2. Upon my initial assessment, pt was asleep and his O2 was 94-96%. Upon awakening pt's O2 did increase. Nonproductive cough noted. Throat is nonerythematous without exudates, uvula midline without edema, and no obvious [employer]. Pt's lung sounds mildly decreased. Pt is not tachypenic upon awakening. PE is otherwise unremarkable. Duoneb ordered. Afebrile, no leukocytosis. Pt's kidney function is at baseline. CXR negative. Strep and flu test ordered. 06/13/19 10:37 Flu negative. Strep positive. Will treat with Azithromycin 500 mg and give strict return precautions. Pt referred back to PCP. All questions/concerns addressed prior to discharge. - Vital Signs Vital signs: Temp Pulse Resp BP Pulse Ox 98 F 24 H 146/62 H 93 06/13/19 06:31 06/13/19 07:01 06/13/19 07:01 06/13/19 07:01 - Laboratory Result Diagrams: 06/13/19 07:20 06/13/19 07:20 Laboratory results interpreted by me: 06/13/19 06/13/19 06/13/19 07:20 07:20 07:45 RBC 3.67 L Hgb 11.1 L Hct 32.2 L RDW 14.5 H Plt Count 143 L Lymph % (Auto) 12.4 L BUN 32 H Creatinine 2.07 H Est GFR ( Amer) 37 L Est GFR (MDRD) Non-Af 31 L Glucose 169 H Urine Protein 100 H Urine Blood SMALL H Discharge - Discharge Clinical Impression: Strep sore throat Condition: Stable Disposition: HOME, SELF-CARE Instructions: Strep Throat ([facility]) Additional Instructions: Your chest x-ray did not show a pneumonia. Your white count was normal. Your flu test was negative. Your strep test was positive. Please take antibiotics as prescribed and finish all doses even if you feel better. Follow up with your primary care doctor in 1-2 days. Return immediately to ER for any worsening symptoms including increased fever, coughing up blood, shortness of breath, chest pain, abdominal pain, nausea/vomiting, or any other symptoms that are concerning to you. Prescriptions: Benzonatate [Tessalon Perles 100 mg Capsule] 100 mg PO Q8HP PRN #40 capsule PRN Reason: Azithromycin 500 mg PO DAILY #5 tablet Referrals: DENILSON CARLOS MD [Primary Care Provider] - Follow up tomorrow
[2019-06-13 09:50] LABS: A TYPE INFLUENZA AG NEGATIVE (NEGATIVE); B INFLUENZA AG NEGATIVE (NEGATIVE)
[2019-06-13] MEDS ORDERED: AZITHROMYCIN INJ 500 MG VIAL IV ONE (10:42)
[2019-06-13 13:58] VITALS: BP 146/79
--- NOTE | 2019-06-13 17:27 | EKG REPORT ---
SEVERITY:- ABNORMAL ECG - SINUS RHYTHM RIGHT BUNDLE BRANCH BLOCK : Confirmed by: Wilma Barton MD 13-Jun-2019 17:26:28
== END 2019-06-13 13:58 | disposition home or self-care (01) ==
LOC: ER 05:48
DX: J02.0 Streptococcal pharyngitis (principal); J44.9 Chronic obstructive pulmonary disease, unspecified; R05 Cough; E11.51 Type 2 diabetes mellitus with diabetic peripheral angiopathy without gangrene; I25.10 Atherosclerotic heart disease of native coronary artery without angina pectoris; I10 Essential (primary) hypertension; Z87.01 Personal history of pneumonia (recurrent); Z88.0 Allergy status to penicillin
CPT/HCPCS: 93005; 94640; 99283; 96365; 36415; 87880; 85025; 80053; 81001; 87804; 71045; 93010; A9270 ×2; J0456; J7620

== ENCOUNTER → 2020-01-19 | Outpatient (CLI) | payer MEDICARE, MEDICAID ==
--- NOTE | 2020-01-19 18:07 | RADIOLOGY REPORT (SQ) ---
EXAM DESCRIPTION: CT CHEST WITHOUT IMAGES COMPLETED DATE/TIME: 01/19/2020 10:21 am REASON FOR STUDY: PULMONARY NODULE R91.1 SOLITARY PULMONARY NODULE COMPARISON: 11/10/2018 and 07/14/2014. TECHNIQUE: CT scan performed of the chest without intravenous contrast. Images reviewed with lung, soft tissue and bone windows. Reconstructed coronal and sagittal MPR images reviewed. All images st ored on PACS. All CT scanners at this facility use dose modulation, iterative reconstruction, and/or weight based d osing when appropriate to reduce radiation dose to as low as reasonably achievable (ALARA). [facility]: Dose Right [facility]: CareDose [facility]: Dose Right [facility]: Teradose 4D [facility]: [employer] RADIATION DOSE: CT Rad equipment meets quality standard of care and radiation dose reduction techniq ues were employed. CTDIvol: 14.7 mGy. DLP: 610 mGy-cm. mGy. LIMITATIONS: No technical limitations. FINDINGS: LUNGS AND PLEURA: Stable 8 mm nodule in the right middle lobe (axial series 4, image 70). Nearby is a 3 mm nodule, also stable and unchanged. No progression. No new nodules or masses. No infiltrates. Scarring in the lung bases with mild bronchiectasis. No pleural effusions or pleural c alcifications. HILAR AND MEDIASTINAL STRUCTURES: No identified masses or abnormal nodes. No obvious aneurysm. HEART AND VASCULAR STRUCTURES: No aneurysm. No pericardial effusion. UPPER ABDOMEN: No significant findings. Limited exam. THYROID AND OTHER SOFT TISSUES: No masses. No adenopathy. BONES: No significant finding. Degenerative changes in the spine. HARDWARE: Sternotomy wires and coronary bypass markers. OTHER: No other significant findings. IMPRESSION: STABLE APPEARANCE OF THE CHEST. CHRONIC CHANGES ABOVE. 8 MM NODULE IN THE RIGHT WALE G IS UNCHANGED. NO PROGRESSION. NO NEW FINDINGS. TECHNICAL DOCUMENTATION: JOB ID: [id number] Quality ID # [id number]: Final reports with documentation of one or more dose reduction techniques (e.g., Au tomated exposure control, adjustment of the mA and/or kV according to patient size, use of iterative reconstruction technique) 2010 [employer]- All Rights Reserved Reading location - IP/workstation name: [email or web address]
== END ==
LOC: RAD 09:50
PROVIDERS: ATTEND Registered Nurse
DX: R91.1 Solitary pulmonary nodule (principal)
CPT/HCPCS: 71250

== ENCOUNTER 2020-03-19 17:39 | Inpatient (IN) | payer MEDICARE, MEDICAID ==
[2020-03-19 18:36] LABS: ABSOLUTE LYMPHOCYTES (AUTO) 0.9 10^3/uL (0.5-4.7); ABSOLUTE MONOCYTES (AUTO) 0.6 10^3/uL (0.1-1.4); ABSOLUTE NEUT (AUTO) 12.4 10^3/uL (1.7-8.2); BASOPHILS % (AUTO) 0.3 % (0-2); HEMATOCRIT 35.6 % (37.9-51.0); HEMOGLOBIN 11.7 g/dL (13.5-17.0); LYMPHOCYTES % (AUTO) 6.5 % (13-45); MEAN CORPUSCULAR HEMOGLOBIN 28.6 pg (27.0-33.4); MEAN CORPUSCULAR VOLUME 87 fl (80-97); MONOCYTES % (AUTO) 4.5 % (3-13); PLATELET COUNT 193 10^3/uL (150-450); SEGMENTED NEUTROPHILS % (AUTO) 88.7 % (42-78); TOTAL CELLS COUNTED % (AUTO) 100 %; WHITE BLOOD COUNT 13.9 10^3/uL (4.0-10.5)
[2020-03-19 18:37] LABS: VENOUS BLOOD BASE EXCESS -0.7 mmol/L; VENOUS BLOOD HCO3 25.6 mmol/L (20-32); VENOUS BLOOD PCO2 47.4 mmHg (35-63); VENOUS BLOOD PH 7.35 (7.30-7.42)
[2020-03-19 18:44] LABS: ANION GAP 12 (5-19); BLOOD UREA NITROGEN 57 mg/dL (7-20); CALCIUM 9.5 mg/dL (8.4-10.2); CARBON DIOXIDE 24 mmol/L (22-30); CHLORIDE 97 mmol/L (98-107); GLUCOSE 340 mg/dL (75-110); POTASSIUM 5.3 mmol/L (3.6-5.0)
[2020-03-19 19:10] LABS: ALBUMIN 4.2 g/dL (3.5-5.0); ALKALINE PHOSPHATASE 65 U/L (38-126); ASPARTATE AMINO TRANSFERASE 21 U/L (17-59); BILIRUBIN,DIRECT 0.3 mg/dL (0.0-0.4); BILIRUBIN,TOTAL 0.6 mg/dL (0.2-1.3); C-REACTIVE PROTEIN 16.5 mg/L (<10.0); TOTAL PROTEIN 7.7 g/dL (6.3-8.2)
[2020-03-19 19:59] LABS: APPEARANCE,URINE SLIGHTLY-CLOUDY; BILIRUBIN,URINE NEGATIVE (NEGATIVE); COLOR,URINE YELLOW; GLUCOSE, URINE 150 mg/dL (NEGATIVE); KETONES,URINE NEGATIVE (NEGATIVE); LEUKOCYTE ESTERASE,URINE NEGATIVE (NEGATIVE); NITRITE,URINE NEGATIVE (NEGATIVE); PROTEIN,URINE 30 mg/dL (NEGATIVE); URINE SPECIFIC GRAVITY 1.012; UROBILINOGEN,URINE NEGATIVE mg/dL (<2.0)
--- NOTE | 2020-03-19 21:44 | RADIOLOGY REPORT (SQ) ---
EXAM DESCRIPTION: X-RAY CHEST- One View CLINICAL HISTORY: Shortness of breath COMPARISON: 06/13/19 TECHNIQUE: Single view of the chest. FINDINGS: There are overlying EKG leads. There are patchy predominantly bibasilar opacities. Please note that known pulmonary micronodules are poorly visualized radiographically. The pulmonary vascularity is normal. The cardiomediastinal silhouette is persistently mildly enlarged. There are cardiothoracic postoperative changes including medial sternotomy wires. Osseus structures are stable. IMPRESSION: 1. Patchy predominantly bibasilar opacities are nonspecific. Differential diagnosis includes infectious and inflammatory causes. 2. Persistent mild enlargement of the cardiac silhouette in the setting of cardiothoracic postoperative changes.
--- NOTE | 2020-03-19 22:36 | ER Document Report ---
ED General - General Chief Complaint: Shortness Of Breath Stated Complaint: COUGH Time Seen by Provider: 03/19/20 18:14 Mode of Arrival: Medic Information source: Patient Notes: 84-year-old man with a history of coronavirus, is brought to the emergency department today by EMS from [facility] with shortness of breath and elevated blood sugar. He was diagnosed with the COVID-19 on March 14. Patient is a full code TRAVEL OUTSIDE OF THE [place] IN LAST 30 DAYS: No - Related Data Allergies/Adverse Reactions: Penicillins Allergy (Verified 06/13/19 05:58) swelling Past Medical History - Social History Smoking Status: Former Smoker Chew tobacco use (# tins/day): No Drug Abuse: None Family History: COPD Patient has homicidal ideation: No - Past Medical History Cardiac Medical History: Reports: Hx Coronary Artery Disease, Hx Heart Attack - 2000, Hx Hypercholesterolemia, Hx Hypertension, Hx Peripheral Vascular Disease Pulmonary Medical History: Reports: Hx COPD, Hx Pneumonia - 2013 Neurological Medical History: Reports: Hx Cerebrovascular Accident Endocrine Medical History: Reports: Hx Diabetes Mellitus Type 2 Renal/ Medical History: Reports: Hx Kidney Stones. Denies: Hx Peritoneal Dialysis Musculoskeletal Medical History: Reports Hx Arthritis - Generalized Psychiatric Medical History: Reports: Hx Depression Past Surgical History: Reports: Hx Cardiac Catheterization, Hx Cardiac Surgery - Open heart - triple bypass., Hx Coronary Artery Bypass Graft - x3, Hx Kidney (Renal Surgery) - Kidney stone, Hx Open Heart Surgery - TRIPLE BYPASS - Immunizations Hx Diphtheria, Pertussis, Tetanus Vaccination: No Hx Pneumococcal Vaccination: 01/05/14 Review of Systems - Review of Systems Notes: Constitutional: Generalized weakness HENT: Negative for sore throat. Eyes: Negative for visual changes. Cardiovascular: Negative for chest pain. Respiratory: Shortness of breath Gastrointestinal: Negative for abdominal pain, vomiting or diarrhea. Genitourinary: Negative for dysuria. Musculoskeletal: Negative for back pain. Skin: Negative for rash. Neurological: Negative for headaches, weakness or numbness. 10 point ROS negative except as marked above and in HPI. Physical Exam - Vital signs Vitals: Temp 99.0 F 03/19/20 17:39 - Notes Notes: PHYSICAL EXAMINATION: Physical Exam: General: Chronically ill-appearing 78-year-old man in mild distress secondary to shortness of breath HEENT: NC/AT, pupils equal round and reactive to light, MM moist,nares clear, oropharynx clear, airway patent Neck: supple, no adenopathy, no masses. Good range of motion Lungs: Coarse breath sounds no wheezes CVS: Regular rate and rhythm no murmur gallop or rub Abdomen: Soft, active, nontender, no masses, no hepatosplenomegaly Ext: No edema, clubbing or cyanosis. Neuro: Alert and responsive, moving all 4 extremities on command, cranial nerves intact, no focal findings Skin: Intact no open lesions, no rash PSYCH: Normal mood, normal affect. Course - Re-evaluation Re-evalutation: 03/19/20 22:42 Patient was given a liter of normal saline and labs were ordered. He continues to have O2 sat of 87 on room air on 2 L nasal cannula he is 92%. He is afebrile he does have an elevated white blood cell count and bibasilar groundglass appearing densities on chest x-ray. Blood sugar is in the 300s he is not aci dotic. Patient will need to be brought into the hospital for further evaluation and treatment. 03/19/20 22:58 Spoke to the hospitalist pharmacy operations manager , he will see the patient in the emergency department to determine bed placement. - Vital Signs Vital signs: Temp Pulse Resp BP Pulse Ox 98.1 F 17 110/61 87 L 03/19/20 22:30 03/19/20 22:30 03/19/20 22:00 03/19/20 22:30 - Laboratory Result Diagrams: 03/19/20 18:00 03/19/20 18:00 Laboratory results interpreted by me: 03/19/20 03/19/20 03/19/20 17:50 18:00 18:00 WBC 13.9 H RBC 4.10 L Hgb 11.7 L Hct 35.6 L RDW 15.0 H Lymph % (Auto) 6.5 L Absolute Neuts (auto) 12.4 H Seg Neutrophils % 88.7 H ESR Sodium 133.2 L Potassium 5.3 H Chloride 97 L BUN 57 H Creatinine 2.16 H Est GFR ( Amer) 35 L Est GFR (MDRD) Non-Af 29 L Glucose 340 H POC Glucose 350 H C-Reactive Protein Urine Protein Urine Glucose (UA) Urine Blood 03/19/20 03/19/20 03/19/20 18:00 18:00 19:34 WBC RBC Hgb Hct RDW Lymph % (Auto) Absolute Neuts (auto) Seg Neutrophils % ESR 99 H Sodium Potassium Chloride BUN Creatinine Est GFR ( Amer) Est GFR (MDRD) Non-Af Glucose POC Glucose C-Reactive Protein 16.5 H Urine Protein 30 H Urine Glucose (UA) 150 H Urine Blood SMALL H - Diagnostic Test Radiology reviewed: Image reviewed, Reports reviewed - EKG Interpretation by Me Rate: Normal - EKG interpreted by Dr. Hua: Normal sinus rhythm, rate 70, MI interval 162 ms, QT interval 412 ms, left axis deviation, right bundle branch block, compared to EKG dated 06/13/2019 there is no interval changes noted. Interpretation: Abnormal EKG Discharge - Discharge Clinical Impression: COVID-19 virus infection, Low O2 saturation, Obstructive sleep apnea Bilateral pneumonia Qualifiers: Pneumonia type: due to unspecified organism Lung location: unspecified part of lung Qualified Code(s): J18.9 - Pneumonia, unspecified organism COPD (chronic obstructive pulmonary disease) Qualifiers: COPD type: unspecified COPD Qualified Code(s): J44.9 - Chronic obstructive pulmonary disease, unspecified Type 2 diabetes mellitus Qualifiers: Diabetes mellitus emt intermediate insulin use: unspecified emt intermediate insulin use status Diabetes mellitus complication status: without complication Qualified Code(s): E11.9 - Type 2 diabetes mellitus without complications Condition: Fair Disposition: ADMITTED OBSERVATION Admitting Provider: Dr Gamboa Unit Admitted: Medical Floor
[2020-03-19] MEDS ORDERED: IPRATROPIUM/ALBUTEROL 0.5-2.5 MG/3 ML AMPUL NEB ONE (22:45)
[2020-03-19] MEDS ORDERED: ACETAMINOPHEN 325 MG TABLET PO PRN (23:22)
[2020-03-19] MEDS ORDERED: IPRATROPIUM/ALBUTEROL 0.5-2.5 MG/3 ML AMPUL NEB PRN (23:22)
[2020-03-19] MEDS ORDERED: DEXTROSE 50%-WATER 25 GM/50 ML DISP.SYRIN IV PRN ×2 (23:35)
[2020-03-19] MEDS ORDERED: GLUCAGON,HUMAN RECOMB 1 MG INJ IM PRN (23:35)
[2020-03-19] MEDS ORDERED: DEXTROSE 40% GEL 15 GM TUBE PO PRN ×2 (23:35)
[2020-03-19] MEDS ORDERED: LEVOFLOXACIN 750 MG TABLET PO SCH (23:45)
--- NOTE | 2020-03-20 00:02 | PDOC H&P ---
History of Present Illness Admission Date/PCP: ELANA HERNANDEZ Patient complains of: Worsening shortness of breath History of Present Illness: STEPHENIE PEREZ is a 84 year old male with a history of type 2 diabetes, CKD stage IIIb, hypertension, hyperlipidemia, CAD and Parkinson's disease who presents from [facility] with worsening of shortness of breath. Patient is poor historian and is able to remember details. Patient was diagnosed with COVID-19 on 03/14/2020 weaned over the past few days he states that he has been feeling terrible, unable to get out of bed, fatigued and short of breath. He also had associated dry cough but denies any fever, chills, chest pain. He denies any nausea, vomiting or any change in his bowel or urinary habits. On arrival to the ED patient was saturating 87% on room air and currently is requiring 3 L intranasal oxygen to saturate 93 to 94%. Past Medical History Cardiac Medical History: Reports: Coronary Artery Disease, Myocardial Infarction - 2000, Hyperlipidema, Hypertension, Peripheral Vascular Disease Pulmonary Medical History: Reports: Chronic Obstructive Pulmonary Disease (COPD), Pneumonia - 2013 Endocrine Medical History: Reports: Diabetes Mellitus Type 2 Musculoskeltal Medical History: Reports: Arthritis - Generalized Psychiatric Medical History: Reports: Depression Hematology: Denies: Anemia, Sickle Cell Disease Past Surgical History Past Surgical History: Reports: Cardiac Catheterization, Coronary Artery Bypass Graft - x3 Social History Information Source: Patient Lives with: Long Term Smoking Status: Former Smoker Electronic Cigarette use?: No Frequency of Alcohol Use: None Hx Recreational Drug Use: No Drugs: None Hx Prescription Drug Abuse: No - Advance Directive Resuscitation Status: Full Code Family History Family History: COPD Parental Family History Reviewed: Yes Children Family History Reviewed: Yes Sibling(s) Family History Reviewed.: Yes Medication/Allergy Home Medications: Amlodipine Besylate [Norvasc 10 mg Tablet] 10 mg PO DAILY 05/07/17 Carvedilol [Coreg 3.125 mg Tablet] 3.125 mg PO Q12 05/07/17 Duloxetine HCl [Cymbalta] 30 mg PO QAM 05/07/17 Famotidine [Pepcid 20 mg Tablet] 20 mg PO BID 05/07/17 Magnesium Oxide [Mag-Ox 400 mg Tablet] 400 mg PO BID 05/07/17 [place]-3 Fatty Acids [[place]-3] 1,000 mg PO BID 05/07/17 Phenol/Sodium Phenolate [Chloraseptic Sore Throat [place] 177 ml] 2 spray PO Q4HP PRN 05/07/17 Polyethylene Glycol 3350 [Miralax Powder 17 gm/Packet] 17 gm PO DAILY 05/07/17 Rosuvastatin Calcium [Crestor] 40 mg PO QAM 05/07/17 Sitagliptin Phos/Metformin HCl [Janumet 50-1,000 mg Tablet] 1 tab PO BID 05/07 Tamsulosin HCl [Flomax 0.4 mg Cap.sr] 0.4 mg PO DAILY 05/07/17 Ipratropium/Albuterol Sulfate [Duoneb 3 ml Ampul] 3 ml NEB RTQ12 vial.neb 05/10/17 Levofloxacin [Levaquin 250 mg Tablet] 250 mg PO DAILY #6 tablet 05/10/17 Lisinopril [Zestril] 10 mg PO Q12 #0 05/10/17 Methylprednisolone [Medrol Dosepack (4 mg/Tab) 21 Tab/Dosepak] 4 mg PO ASDIR PRN #21 tab.ds.pk 05/10/17 Azithromycin 500 mg PO DAILY #5 tablet 06/13/19 Benzonatate [Tessalon Perles 100 mg Capsule] 100 mg PO Q8HP PRN #40 capsule 06/13/19 Allergies/Adverse Reactions: Penicillins Allergy (Verified 06/13/19 05:58) swelling Review of Systems Constitutional: ABSENT: chills, fever(s), headache(s), weight gain, weight loss Eyes: ABSENT: visual disturbances Ears: ABSENT: hearing changes Nose, Mouth, and Throat: ABSENT: headache(s), mouth pain, sore throat Cardiovascular: ABSENT: chest pain, edema, orthropnea, palpitations Respiratory: PRESENT: as per HPI Gastrointestinal: ABSENT: abdominal pain, constipation, diarrhea, hematemesis, hematochezia, nausea, vomiting Genitourinary: ABSENT: dysuria, hematuria Musculoskeletal: ABSENT: joint swelling Integumentary: ABSENT: rash, wounds Neurological: ABSENT: abnormal gait, abnormal speech, confusion, dizziness, focal weakness, syncope Psychiatric: ABSENT: depression, homidical ideation, suicidal ideation Endocrine: ABSENT: cold intolerance, heat intolerance, polydipsia, polyuria Hematologic/Lymphatic: ABSENT: easy bleeding, easy bruising Physical Exam Vital Signs: Temp Pulse Resp BP Pulse Ox 98.1 F 17 110/61 87 L 03/19/20 22:30 03/19/20 22:30 03/19/20 22:00 03/19/20 22:30 Intake & Output 03/18/20 03/19/20 03/20/20 06:59 06:59 06:59 Weight 94.3 kg Additional comments: GENERAL APPEARANCE: Alert and oriented x2, in no acute distress, currently on 3 L intranasal oxygen saturating 94% HEENT: Normocephalic and atraumatic. No scleral icterus. Moist oral mucosa NECK: Supple. No lymphadenopathy or tenderness. No carotid bruit. No JVD CHEST: Symmetric. Nontender to palpation. LUNGS: Clear with good air entry bilaterally. No wheezing or crackles HEART: Regular rate and rhythm with normal S1 and S2. No murmurs, gallops, or rubs. ABDOMEN: Flat, soft, active bowel sounds, no direct or rebound tenderness. No organomegaly detected. No CVA tenderness EXTREMITIES: No cyanosis, clubbing, or edema. MUSCULOSKELETAL: No deformity, atrophy or swelling noted PSYCHIATRIC: Recent and remote memory is intact. Appropriate mood and affect. SKIN: Warm, dry, and well perfused. No lesions or rashes are noted. NEUROLOGIC: No focal sensory or motor deficits are noted. Results Laboratory Results: 03/19/20 18:00 03/19/20 18:00 03/19/20 03/19/20 03/19/20 18:00 18:00 18:00 WBC 13.9 H RBC 4.10 L Hgb 11.7 L Hct 35.6 L MCV 87 MCH 28.6 MCHC 33.0 RDW 15.0 H Plt Count 193 Seg Neutrophils % 88.7 H VBG pH 7.35 VBG pCO2 47.4 VBG HCO3 25.6 VBG Base Excess -0.7 Sodium 133.2 L Potassium 5.3 H Chloride 97 L Carbon Dioxide 24 Anion Gap 12 BUN 57 H Creatinine 2.16 H Est GFR ( Amer) 35 L Glucose 340 H Calcium 9.5 Ferritin Total Bilirubin AST Alkaline Phosphatase C-Reactive Protein Total Protein Albumin Urine Color Urine Appearance Urine pH Ur Specific [place] Urine Protein Urine Glucose (UA) Urine Ketones Urine Blood Urine Nitrite Ur Leukocyte Esterase Urine WBC (Auto) Urine RBC (Auto) 03/19/20 03/19/20 18:00 19:34 WBC RBC Hgb Hct MCV MCH MCHC RDW Plt Count Seg Neutrophils % VBG pH VBG pCO2 VBG HCO3 VBG Base Excess Sodium Potassium Chloride Carbon Dioxide Anion Gap BUN Creatinine Est GFR ( Amer) Glucose Calcium Ferritin 357.00 Total Bilirubin 0.6 AST 21 Alkaline Phosphatase 65 C-Reactive Protein 16.5 H Total Protein 7.7 Albumin 4.2 Urine Color YELLOW Urine Appearance SLIGHTLY-CLOUDY Urine pH 5.0 Ur Specific [place] 1.012 Urine Protein 30 H Urine Glucose (UA) 150 H Urine Ketones NEGATIVE Urine Blood SMALL H Urine Nitrite NEGATIVE Ur Leukocyte Esterase NEGATIVE Urine WBC (Auto) 0 Urine RBC (Auto) 0 Impressions: Chest X-Ray 03/19/20 18:56 IMPRESSION: 1. Patchy predominantly bibasilar opacities are nonspecific. Differential diagnosis includes infectious and inflammatory causes. 2. Persistent mild enlargement of the cardiac silhouette in the setting of cardiothoracic postoperative changes. Assessment and Plan - Diagnosis (1) Acute respiratory failure with hypoxia Is this a current diagnosis for this admission?: Yes Plan: Oxygen saturation on presentation was 87% on room air Venous blood gas showed a pH of 7.35 and PCO2 of 47 Patient was diagnosed with COVID-19 5 days back Currently saturating mid 90s on 4 L intranasal oxygen Chest x-ray showed patchy predominantly bibasilar opacities Requested ferritin, C-reactive protein, CK, D-dimer levels Started him on dexamethasone 6 mg IV daily daily Placed him on zinc, vitamin D, vitamin C Consider starting him on remdesivir in the morning Closely monitor respiratory parameters (2) Bilateral pneumonia Qualifiers: Pneumonia type: due to unspecified organism Lung location: unspecified part of lung Qualified Code(s): J18.9 - Pneumonia, unspecified organism Is this a current diagnosis for this admission?: Yes Plan: Chest x-ray shows patchy bilateral opacities predominantly bibasilar Likely due to infection due to COVID-19 Has leukocytosis of 13.7k Started him on Levaquin renally dosed Continue managing COVID-19 infection as stated above (3) COVID-19 virus infection Is this a current diagnosis for this admission?: Yes Plan: Was diagnosed with COVID-19 infection 5 days back Now presents with worsening of shortness of breath with hypoxia Continue supportive care and managing COVID-19 infection as stated above (4) Hyperkalemia Is this a current diagnosis for this admission?: Yes Plan: Serum potassium on presentation was 5.3 Has no associated EKG changes Gave Kayexalate Continue telemetry monitoring Monitor potassium level (5) Type 2 diabetes mellitus Qualifiers: Diabetes mellitus [facility] insulin use: unspecified [facility] insulin use status Diabetes mellitus complication status: without complication Qualified Code(s): E11.9 - Type 2 diabetes mellitus without complications Is this a current diagnosis for this admission?: Yes Plan: Presents with hyperglycemia with blood sugar of 340 Placed him on sliding scale insulin, hypoglycemia protocol and Accu-Chek (6) CAD (coronary artery disease) Is this a current diagnosis for this admission?: Yes Plan: Currently denies any chest pain Continue aspirin and statin (7) HLD (hyperlipidemia) Is this a current diagnosis for this admission?: Yes Plan: Continue rosuvastatin (8) HTN (hypertension) Qualifiers: Hypertension type: essential hypertension Qualified Code(s): I10 - Essential (primary) hypertension Is this a current diagnosis for this admission?: Yes Plan: Continue home medications (9) Parkinson disease Is this a current diagnosis for this admission?: Yes (10) Stage 3b chronic kidney disease Is this a current diagnosis for this admission?: Yes Plan: Renally dose medications and avoid nephrotoxic's - Time Time Spent with patient: 35 or more minutes Total Critical Time (Minutes): 40 Medications reviewed and adjusted accordingly: Yes Anticipated Discharge Disposition[facility] Anticipated Discharge Timeframe: within 48 hours - Inpatient Certification Based on my medical assessment, after consideration of the patient's comorbidities, presenting symptoms, or acuity I expect that the services needed warrant INPATIENT care.: Yes I certify that my determination is in accordance with my understanding of Medicare's requirements for reasonable and necessary INPATIENT services [42 CFR 412.3e].: Yes Medical Necessity: Failure to Improve With Outpatient Therapy, Need Close Monitoring Due to Risk of Patient Decompensation, Risk of Complication if Not Cared For in Hospital Post Hospital Care: D/C or Transfer Summary
[2020-03-20] MEDS: FAMOTIDINE 20 MG TABLET PO SCH ×3 (00:09→12:03)
[2020-03-20] MEDS ORDERED: SODIUM POLYSTYRENE SULFONATE 15 GM/60 ML PO ONE (00:34)
[2020-03-20 00:38] LABS: CREATINE KINASE 38 U/L (55-170)
[2020-03-20] MEDS ORDERED: ONDANSETRON HCL INJ/PF 4 MG/2 ML SDV IV ONE ×2 (05:45→10:00)
[2020-03-20] MEDS: HEPARIN SOD (PORCINE) 5,000 UNIT/ML 1 ML VIAL SUBCUT SCH ×3 (05:45→22:40)
[2020-03-20] MEDS: IPRATROPIUM/ALBUTEROL 0.5-2.5 MG/3 ML AMPUL NEB SCH ×3 (08:02→20:33)
[2020-03-20] MEDS: INSULIN REG, HUMAN 100 UNIT/ML 3 ML VIAL (PYX) SUBCUT SCH ×4 (08:32→22:34)
--- NOTE | 2020-03-20 08:32 | EKG REPORT ---
SEVERITY:- ABNORMAL ECG - SINUS RHYTHM RIGHT BUNDLE BRANCH BLOCK : Confirmed by: Sharad Nolan MD 20-Mar-2020 08:31:28
[2020-03-20 08:58] LABS: ABSOLUTE LYMPHOCYTES (AUTO) 0.7 10^3/uL (0.5-4.7); ABSOLUTE MONOCYTES (AUTO) 0.7 10^3/uL (0.1-1.4); ABSOLUTE NEUT (AUTO) 11.2 10^3/uL (1.7-8.2); BASOPHILS % (AUTO) 0.1 % (0-2); HEMATOCRIT 33.9 % (37.9-51.0); HEMOGLOBIN 11.3 g/dL (13.5-17.0); LYMPHOCYTES % (AUTO) 5.8 % (13-45); MEAN CORPUSCULAR HEMOGLOBIN 28.6 pg (27.0-33.4); MEAN CORPUSCULAR HGB CONC 33.4 g/dL (32.0-36.0); MEAN CORPUSCULAR VOLUME 86 fl (80-97); MONOCYTES % (AUTO) 5.4 % (3-13); PLATELET COUNT 176 10^3/uL (150-450); RED BLOOD COUNT 3.96 10^6/uL (4.35-5.55); RED CELL DISTRIBUTION WIDTH 14.8 % (11.5-14.0); SEGMENTED NEUTROPHILS % (AUTO) 88.7 % (42-78); TOTAL CELLS COUNTED % (AUTO) 100 %; WHITE BLOOD COUNT 12.6 10^3/uL (4.0-10.5)
[2020-03-20 09:19] LABS: ALBUMIN 3.8 g/dL (3.5-5.0); ALKALINE PHOSPHATASE 88 U/L (38-126); ANION GAP 13 (5-19); ASPARTATE AMINO TRANSFERASE 58 U/L (17-59); BILIRUBIN,DIRECT 0.2 mg/dL (0.0-0.4); BILIRUBIN,TOTAL 0.5 mg/dL (0.2-1.3); BLOOD UREA NITROGEN 59 mg/dL (7-20); CALCIUM 9.1 mg/dL (8.4-10.2); CARBON DIOXIDE 22 mmol/L (22-30); CHLORIDE 99 mmol/L (98-107); GLUCOSE 354 mg/dL (75-110); POTASSIUM 4.9 mmol/L (3.6-5.0); TOTAL PROTEIN 7.2 g/dL (6.3-8.2)
[2020-03-20] MEDS: CHOLECALCIFEROL (D3) 1,000 UNIT (25 MCG) TABLET PO SCH ×2 (10:24→12:03)
[2020-03-20] MEDS: ASCORBIC ACID 500 MG TABLET PO SCH ×3 (10:24→18:02)
[2020-03-20] MEDS: ZINC SULFATE 220 MG CAPSULE PO SCH ×2 (10:24→12:03)
[2020-03-20] MEDS: DEXAMETHASONE SOD PHOS INJ 10 MG/1 ML VIAL IV SCH (10:25)
[2020-03-20] MEDS ORDERED: ONDANSETRON HCL INJ/PF 4 MG/2 ML SDV IV PRN (11:25)
[2020-03-20] MEDS ORDERED: ACETAMINOPHEN 650 MG SUPP.RECT PR ONE (12:18)
[2020-03-20] MEDS ORDERED: ACETAMINOPHEN 650 MG SUPP.RECT PR PRN (12:39)
[2020-03-20 13:08] LABS: ARTERIAL BLOOD BASE EXCESS -0.2 mmol/L; ARTERIAL BLOOD H2CO3 1.14 mmol/L (1.05-1.35); ARTERIAL BLOOD HCO3 24.1 mmol/L (20-24); ARTERIAL BLOOD O2 SATURATION 90.5 % (94-98); ARTERIAL BLOOD PCO2 37.8 mmHg (35-45); ARTERIAL BLOOD PH 7.42 (7.35-7.45); ARTERIAL BLOOD PO2 57.3 mmHg (80-100); ARTERIAL BLOOD TOTAL CO2 25.2 mmol/L (23-27)
[2020-03-20 13:11] LABS: ARTERIAL BLOOD FIO2 6L
[2020-03-20] MEDS: FAMOTIDINE INJ/PF 20 MG/2 ML SDV IV SCH (14:14)
--- NOTE | 2020-03-20 18:16 | PDOC PROGRESS REPORT ---
Subjective Date:: 03/20/20 Subjective:: Patient seen on both morning and afternoon rounds. Patient seen resting in bed on 5L NC O2sat 93%. Patient refused to participate in patient interview on both visits. Nurse informed me that patient is from [facility] and that a nurse had called the patient earlier in the day. I contacted Bibiana Fatimah Kenton nurse at and spoke for 45 minutes regarding patient. Per Bibiana pt was dx'd with Celestina on 03/13/2020. He was immediately placed on isolation at his facility. He has received a total 6 days dexamethasone 6 mg once daily and completed a 6 day course of Azithromycin 250mg daily. Over the past 3 days patient has been wearing his CPAP, which he typically just wears at nighttime, on and off throughout the day because he felt like he was having increased difficulty breathing. Additionally patient has had bowel and bladder incontinence. His baseline is independent on ambulation with bowel and bladder control. She confirmed that pt has dx DM with recent increase in BS readings in 500s over past week. His Lantus dose was recently increased to 35 units nightly on (02/15). Additionally she confirms history of COPD. Marguerite agrees to FaceTime patient tomorrow during my visit with the patient to aid in conversation between patient and myself. We will set this up with the iPad have both my hand her facility. Discussed with nursing. Patient's blood sugar was 440. Given 12 units sliding scale insulin and told to repeat Accu-Chek. Otherwise patient afebrile with stable O2 sats on 5 L nasal cannula. No further complaints or concerns. Reason For Visit: COVID-19 PNA Physical Exam Vital Signs: Temp Pulse Resp BP Pulse Ox 98.7 F 77 20 127/56 H 93 03/20/20 13:55 03/20/20 15:00 03/20/20 14:41 03/20/20 11:53 03/20/20 14:41 Intake & Output 03/19/20 03/20/20 03/21/20 06:59 06:59 06:59 Output Total 200 Balance -200 Weight 92.7 kg General appearance: PRESENT: no acute distress, other - Currently on 5L NC saturating low 90s. Donell is not compliant with patinet interview but allows physical exam to be completed.. ABSENT: cooperative Head exam: PRESENT: atraumatic, normocephalic Eye exam: PRESENT: other - Left eye is shut. Right eye without scleral icterus, EOMI and PERRLA. Mouth exam: PRESENT: dry mucosa, tongue midline Neck exam: PRESENT: other - Neck is supple. ABSENT: carotid bruit, JVD, lymphadenopathy Respiratory exam: PRESENT: clear to auscultation vesta - Clear airway entry bilaterally. ABSENT: crackles, retraction, wheezes Cardiovascular exam: PRESENT: RRR, +S1, +S2. ABSENT: diastolic murmur, systolic murmur Pulses: PRESENT: normal radial pulses Vascular exam: PRESENT: normal capillary refill GI/Abdominal exam: PRESENT: normal bowel sounds, soft. ABSENT: distended Extremities exam: ABSENT: pedal edema, tenderness Musculoskeletal exam: ABSENT: deformity, dislocation Neurological exam: PRESENT: alert, awake, oriented to person, oriented to place Psychiatric exam: PRESENT: flat affect, unusual affect Skin exam: PRESENT: dry, intact, warm Results Laboratory Results: 03/20/20 08:35 03/20/20 08:35 03/19/20 03/19/20 03/19/20 18:00 18:00 18:00 WBC 13.9 H RBC 4.10 L Hgb 11.7 L Hct 35.6 L MCV 87 MCH 28.6 MCHC 33.0 RDW 15.0 H Plt Count 193 Seg Neutrophils % 88.7 H Carbonic Acid HCO3/H2CO3 Ratio ABG pH ABG pCO2 ABG pO2 ABG HCO3 ABG O2 Saturation ABG Base Excess VBG pH 7.35 VBG pCO2 47.4 VBG HCO3 25.6 VBG Base Excess -0.7 FiO2 Sodium 133.2 L Potassium 5.3 H Chloride 97 L Carbon Dioxide 24 Anion Gap 12 BUN 57 H Creatinine 2.16 H Est GFR ( Amer) 35 L Glucose 340 H Calcium 9.5 Ferritin Total Bilirubin AST Alkaline Phosphatase C-Reactive Protein Total Protein Albumin Urine Color Urine Appearance Urine pH Ur Specific [place] Urine Protein Urine Glucose (UA) Urine Ketones Urine Blood Urine Nitrite Ur Leukocyte Esterase Urine WBC (Auto) Urine RBC (Auto) Blood Type Antibody Screen 03/19/20 03/19/20 03/20/20 18:00 19:34 08:35 WBC 12.6 H RBC 3.96 L Hgb 11.3 L Hct 33.9 L MCV 86 MCH 28.6 MCHC 33.4 RDW 14.8 H Plt Count 176 Seg Neutrophils % 88.7 H Carbonic Acid HCO3/H2CO3 Ratio ABG pH ABG pCO2 ABG pO2 ABG HCO3 ABG O2 Saturation ABG Base Excess VBG pH VBG pCO2 VBG HCO3 VBG Base Excess FiO2 Sodium Potassium Chloride Carbon Dioxide Anion Gap BUN Creatinine Est GFR ( Amer) Glucose Calcium Ferritin 357.00 Total Bilirubin 0.6 AST 21 Alkaline Phosphatase 65 C-Reactive Protein 16.5 H Total Protein 7.7 Albumin 4.2 Urine Color YELLOW Urine Appearance SLIGHTLY-CLOUDY Urine pH 5.0 Ur Specific [place] 1.012 Urine Protein 30 H Urine Glucose (UA) 150 H Urine Ketones NEGATIVE Urine Blood SMALL H Urine Nitrite NEGATIVE Ur Leukocyte Esterase NEGATIVE Urine WBC (Auto) 0 Urine RBC (Auto) 0 Blood Type Antibody Screen 03/20/20 03/20/20 03/20/20 08:35 12:32 14:45 WBC RBC Hgb Hct MCV MCH MCHC RDW Plt Count Seg Neutrophils % Carbonic Acid 1.14 HCO3/H2CO3 Ratio 21:1 ABG pH 7.42 ABG pCO2 37.8 ABG pO2 57.3 L ABG HCO3 24.1 H ABG O2 Saturation 90.5 L ABG Base Excess -0.2 VBG pH VBG pCO2 VBG HCO3 VBG Base Excess FiO2 6L Sodium 134.3 L Potassium 4.9 Chloride 99 Carbon Dioxide 22 Anion Gap 13 BUN 59 H Creatinine 2.15 H Est GFR ( Amer) 35 L Glucose 354 H Calcium 9.1 Ferritin Total Bilirubin 0.5 AST 58 Alkaline Phosphatase 88 C-Reactive Protein Total Protein 7.2 Albumin 3.8 Urine Color Urine Appearance Urine pH Ur Specific [place] Urine Protein Urine Glucose (UA) Urine Ketones Urine Blood Urine Nitrite Ur Leukocyte Esterase Urine WBC (Auto) Urine RBC (Auto) Blood Type O POSITIVE Antibody Screen NEGATIVE 03/19/20 18:00 Creatine Kinase 38 L Impressions: Chest X-Ray 03/19/20 18:56 IMPRESSION: 1. Patchy predominantly bibasilar opacities are nonspecific. Differential diagnosis includes infectious and inflammatory causes. 2. Persistent mild enlargement of the cardiac silhouette in the setting of cardiothoracic postoperative changes. Assessment and Plan - Diagnosis (1) Acute respiratory failure with hypoxia Is this a current diagnosis for this admission?: Yes Plan: Currently on 5 L nasal cannula with saturations in the low 90s. - Oxygen saturation on initial presentation was 87% on room air - Venous blood gas showed a pH of 7.35 and PCO2 of 47 - Dx Covid 19 03/13 - Tx thus far: x6 days Iv steroids, x6 days Azithromycin - Chest x-ray showed patchy predominantly bibasilar opacities - ferritin, C-reactive protein, CK, D-dimer levels all elevated - Continue dexamethasone 6 mg IV daily daily - Placed him on zinc, vitamin D, vitamin C - Initiated convalescent plasma - Cnt breathing treatments - Flutter valve and incentive spirometry - Due to eGFR <30 patient will hold Remdesivir at this time - Closely monitor respiratory parameters (2) Bilateral pneumonia Qualifiers: Pneumonia type: due to unspecified organism Lung location: unspecified part of lung Qualified Code(s): J18.9 - Pneumonia, unspecified organism Is this a current diagnosis for this admission?: Yes Plan: Chest x-ray shows patchy bilateral opacities predominantly bibasilar - Likely due to infection due to COVID-19 - Leukocytosis 13.9 -> 12.6 - Cnt Levofloxacin 750mg IV - Continue managing COVID-19 infection as stated above (3) COVID-19 virus infection Is this a current diagnosis for this admission?: Yes Plan: Dx'd Covid-19 at [facility] on 03/13 - Tx thus far: x6 days Iv steroids, x6 days Azithromycin - With increasing sxs: SOB, hypoxia, NVD, bladder incontinence - Tx as above (4) Hyperkalemia Is this a current diagnosis for this admission?: Yes Plan: Resolved with Kayexalate - Continue to monitor (5) Type 2 diabetes mellitus Qualifiers: Diabetes mellitus [facility] insulin use: unspecified [facility] insulin use status Diabetes mellitus complication status: without complication Qualified Code(s): E11.9 - Type 2 diabetes mellitus without complications Is this a current diagnosis for this admission?: Yes Plan: Patient with history of diabetes taking 35 units Lantus nightly. - Recent hx BS in 500s at [facility] - Required 10u SSI with breakfast and lunch - Accu-checks consistently in 300s - Initiate 30u lantus qHS - Cnt SSI - Cnt Accu-checks (6) CAD (coronary artery disease) Is this a current diagnosis for this admission?: Yes Plan: Currently denies any chest pain - Continue aspirin and statin (7) HLD (hyperlipidemia) Is this a current diagnosis for this admission?: Yes Plan: Continue rosuvastatin (8) HTN (hypertension) Qualifiers: Hypertension type: essential hypertension Qualified Code(s): I10 - Essential (primary) hypertension Is this a current diagnosis for this admission?: Yes Plan: Continue home medications (9) Parkinson disease Is this a current diagnosis for this admission?: Yes (10) Stage 3b chronic kidney disease Is this a current diagnosis for this admission?: Yes Plan: Renally dose medications and avoid nephrotoxic's - BUN 59 - Creatinine 2.15 - Will request most recent labs from [facility] to establish baseline - Most recent labs here are from 2018 (11) COPD (chronic obstructive pulmonary disease) Qualifiers: COPD type: unspecified COPD Qualified Code(s): J44.9 - Chronic obstructive pulmonary disease, unspecified Is this a current diagnosis for this admission?: Yes (12) Obstructive sleep apnea Is this a current diagnosis for this admission?: Yes Plan: Hx VAISHNAVI - CPAP at night time - Time Time Spent with patient: 35 or more minutes Medications reviewed and adjusted accordingly: Yes Anticipated Discharge Disposition: [facility] Anticipated Discharge Timeframe: NA
[2020-03-20] MEDS ORDERED: INSULIN GLARGINE,HUM.REC.ANLOG 1,000 UNIT/10 ML VIAL SUBCUT SCH (22:00)
[2020-03-20] MEDS ORDERED: INSULIN GLARGINE,HUM.REC.ANLOG 1,000 UNIT/10 ML VIAL (PYX) SUBCUT ONE (22:38)
[2020-03-20] MEDS: INSULIN GLARGINE,HUM.REC.ANLOG 1,000 UNIT/10 ML VIAL SUBCUT SCH (22:40)
[2020-03-21] MEDS: IPRATROPIUM/ALBUTEROL 0.5-2.5 MG/3 ML AMPUL NEB SCH ×4 (02:00→21:13)
[2020-03-21] MEDS: HEPARIN SOD (PORCINE) 5,000 UNIT/ML 1 ML VIAL SUBCUT SCH ×3 (05:31→22:41)
[2020-03-21 06:27] LABS: HEMATOCRIT 35.5 % (37.9-51.0); HEMOGLOBIN 11.9 g/dL (13.5-17.0); MEAN CORPUSCULAR HEMOGLOBIN 28.6 pg (27.0-33.4); MEAN CORPUSCULAR HGB CONC 33.4 g/dL (32.0-36.0); MEAN CORPUSCULAR VOLUME 85 fl (80-97); PLATELET COUNT 164 10^3/uL (150-450); RED BLOOD COUNT 4.15 10^6/uL (4.35-5.55); RED CELL DISTRIBUTION WIDTH 14.9 % (11.5-14.0); WHITE BLOOD COUNT 14.2 10^3/uL (4.0-10.5)
[2020-03-21 06:40] LABS: ALBUMIN 3.7 g/dL (3.5-5.0); ALKALINE PHOSPHATASE 81 U/L (38-126); ANION GAP 13 (5-19); ASPARTATE AMINO TRANSFERASE 26 U/L (17-59); BILIRUBIN,DIRECT 0.2 mg/dL (0.0-0.4); BILIRUBIN,TOTAL 0.5 mg/dL (0.2-1.3); BLOOD UREA NITROGEN 77 mg/dL (7-20); CALCIUM 9.3 mg/dL (8.4-10.2); CARBON DIOXIDE 23 mmol/L (22-30); CHLORIDE 102 mmol/L (98-107); GLUCOSE 227 mg/dL (75-110); POTASSIUM 5.1 mmol/L (3.6-5.0); TOTAL PROTEIN 7.3 g/dL (6.3-8.2)
[2020-03-21] MEDS ORDERED: NORMAL SALINE 1000 ML 1,000 ML IV PRN (06:58)
[2020-03-21 07:24] LABS: ABSOLUTE LYMPHOCYTES# (MANUAL) 0.6 10^3/uL (0.5-4.7); ABSOLUTE MONOCYTES # (MANUAL) 0.1 10^3/uL (0.1-1.4); BAND NEUTROPHILS % (MANUAL) 2 % (3-5); BASOPHILS % (MANUAL) 0 % (0-2); EOSINOPHILS % (MANUAL) 0 % (0-6); LYMPHOCYTES % (MANUAL) 4 % (13-45); MONOCYTES % (MANUAL) 1 % (3-13); SEGMENTED NEUTROPHILS % (MAN) 93 % (42-78); TOTAL CELLS COUNTED 100
[2020-03-21 07:31] LABS: OVALOCYTES SLIGHT; PLATELET COMMENT ADEQUATE; POIKILOCYTOSIS SLIGHT
[2020-03-21] MEDS ORDERED: MAGNESIUM HYDROXIDE SUSP 30 ML UDCUP PO PRN (07:39)
[2020-03-21] MEDS ORDERED: ALBUTEROL SULFATE HFA (90 MCG/PUFF) 8 GM MDI IH PRN (07:39)
[2020-03-21] MEDS ORDERED: POLYETHYLENE GLYCOL 3350 POWDER 17 GM/1 PACKET PO PRN (07:45)
--- NOTE | 2020-03-21 08:06 | EKG REPORT ---
SEVERITY:- ABNORMAL ECG - SINUS TACHYCARDIA ATRIAL PREMATURE COMPLEX RBBB AND LAFB : Confirmed by: Maximilian Deras 21-Mar-2020 08:05:57
[2020-03-21] MEDS ORDERED: ACETAMINOPHEN 650 MG SUPP.RECT PR PRN (09:00)
[2020-03-21] MEDS ORDERED: (PENDING PHARMACY ID) (Rosuvastatin Calcium [Crestor] 40 MG Tablet) PO SCH (10:00)
[2020-03-21] MEDS: INSULIN REG, HUMAN 100 UNIT/ML 3 ML VIAL (PYX) SUBCUT SCH ×4 (11:00→22:41)
[2020-03-21] MEDS: INSULIN LISPRO 100 UNIT/ML 3 ML VIAL SUBCUT SCH ×2 (11:01→18:00)
[2020-03-21] MEDS: ZINC SULFATE 220 MG CAPSULE PO SCH (11:02)
[2020-03-21] MEDS: CHOLECALCIFEROL (D3) 1,000 UNIT (25 MCG) TABLET PO SCH (11:02)
[2020-03-21] MEDS: ASCORBIC ACID 500 MG TABLET PO SCH ×2 (11:02→17:58)
[2020-03-21] MEDS: LISINOPRIL 10 MG TABLET PO SCH (11:03)
[2020-03-21] MEDS: DEXAMETHASONE SOD PHOS INJ 10 MG/1 ML VIAL IV SCH (11:03)
[2020-03-21] MEDS: AMLODIPINE BESYLATE 10 MG TABLET PO SCH (11:03)
[2020-03-21] MEDS: FAMOTIDINE INJ/PF 20 MG/2 ML SDV IV SCH (11:03)
[2020-03-21] MEDS: CARVEDILOL 3.125 MG TABLET PO SCH ×2 (11:04→22:41)
[2020-03-21] MEDS: TAMSULOSIN HCL 0.4 MG CAP.SR.24H PO SCH (17:56)
--- NOTE | 2020-03-21 19:41 | PDOC PROGRESS REPORT ---
Subjective Date:: 03/21/20 Subjective:: Patient seen on both morning and afternoon rounds. Patient is resting upright in bed with BiPAP in place. Patient denies pain but states that he just does not feel well. Shortness of breath is better with BiPAP. Denies bowel movement. Discussed with nursing reports that patient has been drinking Pepsi Saturday. His respiratory rate has been persistently high plaints or concerns. Please refer to ACP note regarding conversation with patient and nurse at [facility]. Reason For Visit: COVID-19 PNA Physical Exam Vital Signs: Temp Pulse Resp BP Pulse Ox 99.2 F 79 29 H 94/46 L 90 L 03/21/20 15:21 03/21/20 15:21 03/21/20 16:28 03/21/20 15:21 03/21/20 16:28 Intake & Output 03/20/20 03/21/20 03/22/20 06:59 06:59 06:59 Intake Total 480 666 Output Total 200 725 375 Balance -200 -245 291 Weight 92.7 kg 93.6 kg Additional comments: General appearance: PRESENT: Acute distress, other - Currently on BiPAP o2 sats low 90s. Eye exam: PRESENT: other - Left eye is shut. Right eye without scleral icterus, EOMI and PERRLA. Mouth exam: PRESENT: dry mucosa, tongue midline Neck exam: PRESENT: other - Neck is supple. ABSENT: carotid bruit, JVD, lymphadenopathy Respiratory exam: PRESENT: Clear airway entry bilaterally. Tachypneic. Cardiovascular exam: PRESENT: RRR, +S1, +S2. ABSENT: diastolic murmur, systolic murmur GI/Abdominal exam: PRESENT: normal bowel sounds, soft. ABSENT: distended Extremities exam: ABSENT: pedal edema, tenderness Musculoskeletal exam: ABSENT: deformity, dislocation Neurological exam: PRESENT: alert, awake, oriented to person, oriented to place Psychiatric exam: PRESENT: flat affect, unusual affect Skin exam: PRESENT: dry, intact, warm Results Laboratory Results: 03/21/20 06:06 03/21/20 06:06 03/21/20 03/21/20 06:06 06:06 WBC 14.2 H RBC 4.15 L Hgb 11.9 L Hct 35.5 L MCV 85 MCH 28.6 MCHC 33.4 RDW 14.9 H Plt Count 164 Seg Neutrophils % Not Reportable Sodium 138.1 Potassium 5.1 H Chloride 102 Carbon Dioxide 23 Anion Gap 13 BUN 77 H Creatinine 2.92 H Est GFR ( Amer) 25 L Glucose 227 H Calcium 9.3 Total Bilirubin 0.5 AST 26 Alkaline Phosphatase 81 Total Protein 7.3 Albumin 3.7 03/19/20 18:00 Creatine Kinase 38 L Impressions: Chest X-Ray 03/19/20 18:56 IMPRESSION: 1. Patchy predominantly bibasilar opacities are nonspecific. Differential diagnosis includes infectious and inflammatory causes. 2. Persistent mild enlargement of the cardiac silhouette in the setting of cardiothoracic postoperative changes. Assessment and Plan - Diagnosis (1) Acute respiratory failure with hypoxia Is this a current diagnosis for this admission?: Yes Plan: Currently on BiPAP, O2 sats 90s. - Oxygen saturation on initial presentation was 87% on room air - Venous blood gas showed a pH of 7.35 and PCO2 of 47 - Dx Covid 19 03/13 - Tx thus far: x7 days Iv steroids, x6 days Azithromycin - Chest x-ray showed patchy predominantly bibasilar opacities - ferritin, C-reactive protein, CK, D-dimer levels all elevated - Continue dexamethasone 6 mg IV daily daily - Placed him on zinc, vitamin D, vitamin C - Pt denies convalescent plasma - Cnt breathing treatments - Flutter valve and incentive spirometry - Due to eGFR <30 patient will hold Remdesivir at this time - Closely monitor respiratory parameters (2) Bilateral pneumonia Qualifiers: Pneumonia type: due to unspecified organism Lung location: unspecified part of lung Qualified Code(s): J18.9 - Pneumonia, unspecified organism Is this a current diagnosis for this admission?: Yes Plan: Chest x-ray shows patchy bilateral opacities predominantly bibasilar - Likely due to infection due to COVID-19 - Leukocytosis with small bump - Cnt Levofloxacin 750mg IV day 2 - Continue managing COVID-19 infection as stated above (3) COVID-19 virus infection Is this a current diagnosis for this admission?: Yes Plan: Dx'd Covid-19 at [facility] on 03/13 - Tx thus far: x6 days Iv steroids, x6 days Azithromycin - Tx as above (4) Hyperkalemia Is this a current diagnosis for this admission?: Yes Plan: Resolved with Kayexalate initially. 5.1 on labs today. - Initiate bowel regimen as patient without bowel movement today -Once with confirmed movement can initiate Kayexalate - Continue to monitor (5) Type 2 diabetes mellitus Qualifiers: Diabetes mellitus fci insulin use: unspecified fci insulin use status Diabetes mellitus complication status: without complication Qualified Code(s): E11.9 - Type 2 diabetes mellitus without complications Is this a current diagnosis for this admission?: Yes Plan: Patient with history of diabetes taking 35 units Lantus nightly. - Recent hx BS in 500s at [facility] - Accu-checks consistently in 100-200s - Initiate 30u lantus qHS, Humalog 5u AC - Cnt SSI - Cnt Accu-checks (6) CAD (coronary artery disease) Is this a current diagnosis for this admission?: Yes Plan: Currently denies any chest pain - Continue aspirin and statin (7) HLD (hyperlipidemia) Is this a current diagnosis for this admission?: Yes Plan: Continue rosuvastatin (8) HTN (hypertension) Qualifiers: Hypertension type: essential hypertension Qualified Code(s): I10 - Essential (primary) hypertension Is this a current diagnosis for this admission?: Yes Plan: Continue home medications (9) Parkinson disease Is this a current diagnosis for this admission?: Yes (10) Stage 3b chronic kidney disease Is this a current diagnosis for this admission?: Yes Plan: With worsening kidney function noted on labs on compared to initial presentation yesterday. Initiate gentle fluids and repeat labs in the morning. Discussion with patient's nurse Clemencia Fung states that patient has had limited oral intake of fluids over the past week since being diagnosed with Covid. There is a chance that this is just dehydration exacerbating CKD. - Renally dose medications and avoid nephrotoxic's - Will request most recent labs from [facility] to establish baseline - Most recent labs here are from 2018 (11) COPD (chronic obstructive pulmonary disease) Qualifiers: COPD type: unspecified COPD Qualified Code(s): J44.9 - Chronic obstructive pulmonary disease, unspecified Is this a current diagnosis for this admission?: Yes (12) Obstructive sleep apnea Is this a current diagnosis for this admission?: Yes Plan: Hx VAISHNAVI - CPAP at night time - Time Time Spent with patient: 35 or more minutes Medications reviewed and adjusted accordingly: Yes Anticipated Discharge Disposition: Halfway Facility Anticipated Discharge Timeframe: NA
--- NOTE | 2020-03-21 19:47 | ADVANCED CARE ---
- Diagnosis (1) Acute respiratory failure with hypoxia Diagnosis Current: Yes (2) Bilateral pneumonia Diagnosis Current: Yes (3) COVID-19 virus infection Diagnosis Current: Yes (4) Hyperkalemia Diagnosis Current: Yes (5) Type 2 diabetes mellitus Diagnosis Current: Yes (6) CAD (coronary artery disease) Diagnosis Current: Yes (7) HLD (hyperlipidemia) Diagnosis Current: Yes (8) HTN (hypertension) Diagnosis Current: Yes (9) Parkinson disease Diagnosis Current: Yes (10) Stage 3b chronic kidney disease Diagnosis Current: Yes (11) COPD (chronic obstructive pulmonary disease) Diagnosis Current: Yes (12) Obstructive sleep apnea Diagnosis Current: Yes Attendance: Conversation was held at the patient's bedside between myself, the patient and patient's nurse Bibiana from [facility] per patient's request. Resuscitation Status: Do Not Intubate Discussion: Conversation was focused on discussing patient's CODE STATUS. Upon admission to the hospital patient was listed as a full code. Since porfirio COVID-19 patient with gradual deterioration in health. A 45-minute conversation was held on the phone. Between myself and patient's nurse Bibiana from [facility] we try to inform the patient what DO NOT RESUSCITATE means and what full code means. Patient states that he is aware that his current health is declining but finds making the decision to be a DNR difficult. He would like more time to think about this. He does state that he is not interested in getting intubated if that were to be required at this time. Discussed relation between DNR and DNI with the patient. He remains indecisive on the topic of DNR. I informed the patient that colleagues of [facility] would continue to have this conversation with him he is understanding of this. He plans to continue to think about his CODE STATUS moving forward but did not want to discuss DNR anymore today. Care Planning Goals: My goal is for the patient to establish a clear goal as to what his desires are for the remained of his life. Document(s) Completed: None Time Spent: 50 minutes
[2020-03-21] MEDS: LEVOFLOXACIN 750 MG/D5W RTU 750 MG/150 ML RTUPB IV SCH (22:40)
[2020-03-21] MEDS: INSULIN GLARGINE,HUM.REC.ANLOG 1,000 UNIT/10 ML VIAL SUBCUT SCH (22:42)
[2020-03-21] MEDS: ATORVASTATIN CALCIUM 80 MG TABLET PO SCH (22:42)
[2020-03-22] MEDS: IPRATROPIUM/ALBUTEROL 0.5-2.5 MG/3 ML AMPUL NEB SCH ×4 (01:31→20:47)
[2020-03-22] MEDS: HEPARIN SOD (PORCINE) 5,000 UNIT/ML 1 ML VIAL SUBCUT SCH ×3 (05:10→21:41)
[2020-03-22 06:25] LABS: ABSOLUTE LYMPHOCYTES (AUTO) 0.9 10^3/uL (0.5-4.7); ABSOLUTE MONOCYTES (AUTO) 0.6 10^3/uL (0.1-1.4); ABSOLUTE NEUT (AUTO) 13.3 10^3/uL (1.7-8.2); HEMATOCRIT 32.7 % (37.9-51.0); HEMOGLOBIN 10.8 g/dL (13.5-17.0); MEAN CORPUSCULAR HEMOGLOBIN 28.5 pg (27.0-33.4); MEAN CORPUSCULAR HGB CONC 33.2 g/dL (32.0-36.0); MEAN CORPUSCULAR VOLUME 86 fl (80-97); MONOCYTES % (AUTO) 4.2 % (3-13); PLATELET COUNT 154 10^3/uL (150-450); RED CELL DISTRIBUTION WIDTH 15.3 % (11.5-14.0); SEGMENTED NEUTROPHILS % (AUTO) 89.8 % (42-78); TOTAL CELLS COUNTED % (AUTO) 100 %; WHITE BLOOD COUNT 14.8 10^3/uL (4.0-10.5)
[2020-03-22 06:47] LABS: ALBUMIN 3.3 g/dL (3.5-5.0); ALKALINE PHOSPHATASE 66 U/L (38-126); ANION GAP 16 (5-19); ASPARTATE AMINO TRANSFERASE 30 U/L (17-59); BILIRUBIN,DIRECT 0.3 mg/dL (0.0-0.4); BILIRUBIN,TOTAL 0.5 mg/dL (0.2-1.3); CALCIUM 8.8 mg/dL (8.4-10.2); CARBON DIOXIDE 19 mmol/L (22-30); CHLORIDE 101 mmol/L (98-107); GLUCOSE 225 mg/dL (75-110); TOTAL PROTEIN 6.6 g/dL (6.3-8.2)
[2020-03-22 07:04] LABS: BLOOD UREA NITROGEN 108 mg/dL (7-20)
[2020-03-22] MEDS: FAMOTIDINE INJ/PF 20 MG/2 ML SDV IV SCH (10:59)
[2020-03-22] MEDS: INSULIN REG, HUMAN 100 UNIT/ML 3 ML VIAL (PYX) SUBCUT SCH ×4 (10:59→21:41)
[2020-03-22] MEDS: DEXAMETHASONE SOD PHOS INJ 10 MG/1 ML VIAL IV SCH (10:59)
[2020-03-22] MEDS: CHOLECALCIFEROL (D3) 1,000 UNIT (25 MCG) TABLET PO SCH (11:00)
[2020-03-22] MEDS: ASCORBIC ACID 500 MG TABLET PO SCH ×2 (11:00→18:02)
[2020-03-22] MEDS: AMLODIPINE BESYLATE 10 MG TABLET PO SCH (11:00)
[2020-03-22] MEDS: INSULIN LISPRO 100 UNIT/ML 3 ML VIAL SUBCUT SCH ×3 (11:00→18:03)
[2020-03-22] MEDS: CARVEDILOL 3.125 MG TABLET PO SCH ×2 (11:00→22:13)
[2020-03-22] MEDS: LISINOPRIL 10 MG TABLET PO SCH (11:00)
[2020-03-22] MEDS: ZINC SULFATE 220 MG CAPSULE PO SCH (11:01)
--- NOTE | 2020-03-22 15:25 | PDOC PROGRESS REPORT ---
Subjective Date:: 03/22/20 Subjective:: The patient is resting in bed. He is BiPaP dependant for the most part. The will take his mask off to have him drink fluids and he will desaturate quite quickly. Reason For Visit: COVID-19 PNA Physical Exam Vital Signs: Temp Pulse Resp BP Pulse Ox 97.6 F 71 21 H 106/55 L 91 L 03/22/20 13:12 03/22/20 14:00 03/22/20 14:00 03/22/20 13:12 03/22/20 14:00 Intake & Output 03/21/20 03/22/20 03/23/20 06:59 06:59 06:59 Intake Total 480 936 221 Output Total 725 500 Balance -245 436 221 Weight 93.6 kg 92.8 kg General appearance: PRESENT: cooperative - Somewhat cooperative, mild distress Head exam: PRESENT: atraumatic, normocephalic Mouth exam: PRESENT: other - BiPAP mask in place Respiratory exam: PRESENT: decreased breath sounds - Due to limited inspiration, rales - Left with faint rales in the right base, symmetrical, tachypnea. ABSENT: accessory muscle use, chest wall tenderness, wheezes Cardiovascular exam: PRESENT: RRR, +S1, +S2. ABSENT: bradycardia, diastolic murmur, irregular rhythm, systolic murmur, tachycardia GI/Abdominal exam: PRESENT: normal bowel sounds, soft. ABSENT: tenderness Rectal exam: PRESENT: deferred Gentrourinary exam: ABSENT: indwelling catheter Neurological exam: PRESENT: alert, awake, oriented to person, other - Somewhat difficult to assess orientation. His verbal responses were limited. Psychiatric exam: PRESENT: flat affect. ABSENT: agitated, anxious Results Laboratory Results: 03/22/20 05:48 03/22/20 05:48 03/22/20 03/22/20 05:48 05:48 WBC 14.8 H RBC 3.80 L Hgb 10.8 L Hct 32.7 L MCV 86 MCH 28.5 MCHC 33.2 RDW 15.3 H Plt Count 154 Seg Neutrophils % 89.8 H Sodium 135.8 L Potassium 5.0 Chloride 101 Carbon Dioxide 19 L Anion Gap 16 BUN 108 H D Creatinine 5.14 H Est GFR ( Amer) 13 L Glucose 225 H Calcium 8.8 Total Bilirubin 0.5 AST 30 Alkaline Phosphatase 66 Total Protein 6.6 Albumin 3.3 L 03/19/20 18:00 Creatine Kinase 38 L Impressions: Chest X-Ray 03/19/20 18:56 IMPRESSION: 1. Patchy predominantly bibasilar opacities are nonspecific. Differential diagnosis includes infectious and inflammatory causes. 2. Persistent mild enlargement of the cardiac silhouette in the setting of cardiothoracic postoperative changes. Assessment and Plan - Diagnosis (1) Acute respiratory failure with hypoxia Is this a current diagnosis for this admission?: Yes Plan: Currently on BiPAP, O2 sats 90s. - Oxygen saturation on initial presentation was 87% on room air - Venous blood gas showed a pH of 7.35 and PCO2 of 47 - Dx Covid 19 03/13 - Tx thus far: x7 days Iv steroids, x6 days Azithromycin - Chest x-ray showed patchy predominantly bibasilar opacities - ferritin, C-reactive protein, CK, D-dimer levels all elevated - Continue dexamethasone 6 mg IV daily daily - Placed him on zinc, vitamin D, vitamin C - Pt denies convalescent plasma - Cnt breathing treatments - Flutter valve and incentive spirometry - Due to eGFR <30 patient will hold Remdesivir at this time - Closely monitor respiratory parameters (2) Bilateral pneumonia Qualifiers: Pneumonia type: due to unspecified organism Lung location: unspecified part of lung Qualified Code(s): J18.9 - Pneumonia, unspecified organism Is this a current diagnosis for this admission?: Yes Plan: Chest x-ray shows patchy bilateral opacities predominantly bibasilar - Likely due to infection due to COVID-19 - Leukocytosis with small bump - Cnt Levofloxacin 750mg IV day 2 - Continue managing COVID-19 infection as stated above (3) COVID-19 virus infection Is this a current diagnosis for this admission?: Yes Plan: Dx'd Covid-19 at [facility] on 03/13 - Tx thus far: x6 days Iv steroids, x6 days Azithromycin - Tx as above (4) Hyperkalemia Is this a current diagnosis for this admission?: Yes Plan: Resolved with Kayexalate initially. 5.1 on labs today. - Initiate bowel regimen as patient without bowel movement today -Once with confirmed movement can initiate Kayexalate - Continue to monitor (5) Type 2 diabetes mellitus Qualifiers: Diabetes mellitus nursing home insulin use: unspecified nursing home insulin use status Diabetes mellitus complication status: without complication Qualified Code(s): E11.9 - Type 2 diabetes mellitus without complications Is this a current diagnosis for this admission?: Yes Plan: Patient with history of diabetes taking 35 units Lantus nightly. - Recent hx BS in 500s at [facility] - Accu-checks consistently in 100-200s - Initiate 30u lantus qHS, Humalog 5u AC - Cnt SSI - Cnt Accu-checks (6) CAD (coronary artery disease) Is this a current diagnosis for this admission?: Yes Plan: Currently denies any chest pain - Continue aspirin and statin (7) HLD (hyperlipidemia) Is this a current diagnosis for this admission?: Yes Plan: Continue rosuvastatin (8) HTN (hypertension) Qualifiers: Hypertension type: essential hypertension Qualified Code(s): I10 - Essential (primary) hypertension Is this a current diagnosis for this admission?: Yes Plan: Continue home medications (9) Parkinson disease Is this a current diagnosis for this admission?: Yes (10) Stage 3b chronic kidney disease Is this a current diagnosis for this admission?: Yes Plan: With worsening kidney function noted on labs on compared to initial presentation yesterday. Initiate gentle fluids and repeat labs in the morning. Discussion with patient's nurse Clemencia [facility] states that patient has had limited oral intake of fluids over the past week since being diagnosed with Covid. There is a chance that this is just dehydration exacerbating CKD. - Renally dose medications and avoid nephrotoxic's - Will request most recent labs from [facility] to establish baseline - Most recent labs here are from 2018 (11) Obstructive sleep apnea Is this a current diagnosis for this admission?: Yes Plan: Hx VAISHNAVI - CPAP at night time (12) COPD (chronic obstructive pulmonary disease) Qualifiers: COPD type: unspecified COPD Qualified Code(s): J44.9 - Chronic obstructive pulmonary disease, unspecified Is this a current diagnosis for this admission?: Yes (13) Acute worsening of stage 3 chronic kidney disease Is this a current diagnosis for this admission?: Yes - Plan Summary Summary: (1) Acute respiratory failure with hypoxia (2) Bilateral pneumonia (3) COVID-19 virus infection (4) Hyperkalemia (5) Type 2 diabetes mellitus (6) CAD (coronary artery disease) (7) HLD (hyperlipidemia) (8) HTN (hypertension) (9) Parkinson disease (10) Stage 3b chronic kidney disease (11) Obstructive sleep apnea (12) COPD (chronic obstructive pulmonary disease) (13) acute worsening of chronic stage III kidney disease 03/22/2020 Respiratory failure with bilateral COVID-19 infection-still BiPAP dependent. Continue current regimen including supplements and Decadron. Continue to try and wean from BiPAP and subsequently from oxygen. Chronic renal failure-the patient is suffered an acute worsening of his chronic kidney disease. Today his BUN was 108 with a creatinine of 5.14. This likely has caused his potassium to rise. It still remains in the normal range. I am going to increase his IV saline to 150 mL/h through tonight and recheck laboratory studies in the morning. Accu-Cheks are still high likely exacerbated by IV steroids. I will increase the Lantus to 35 units at night and monitor Accu-Cheks. No other changes in his treatment plan with regard to coronary artery disease, hyperlipidemia, hypertension, Parkinson's disease and COPD. The BiPAP will treat the sleep apnea. - Time Time Spent with patient: 15-24 minutes Medications reviewed and adjusted accordingly: Yes Anticipated Discharge Disposition: Skilled Nursing Care Facility Anticipated Discharge Timeframe: Unknown
[2020-03-22] MEDS: TAMSULOSIN HCL 0.4 MG CAP.SR.24H PO SCH (18:02)
[2020-03-22] MEDS: NORMAL SALINE 1000 ML 1,000 ML IV PRN (20:06)
[2020-03-22] MEDS: ATORVASTATIN CALCIUM 80 MG TABLET PO SCH (21:41)
[2020-03-22] MEDS: INSULIN GLARGINE,HUM.REC.ANLOG 1,000 UNIT/10 ML VIAL SUBCUT SCH (21:42)
[2020-03-23] MEDS: IPRATROPIUM/ALBUTEROL 0.5-2.5 MG/3 ML AMPUL NEB SCH ×4 (02:40→20:11)
[2020-03-23] MEDS: NORMAL SALINE 1000 ML 1,000 ML IV PRN ×3 (04:18→22:14)
[2020-03-23] MEDS: ACETAMINOPHEN 325 MG TABLET PO PRN ×2 (04:33→13:37)
[2020-03-23 05:50] LABS: ABSOLUTE MONOCYTES (AUTO) 0.6 10^3/uL (0.1-1.4); ABSOLUTE NEUT (AUTO) 13.1 10^3/uL (1.7-8.2); HEMATOCRIT 31.1 % (37.9-51.0); HEMOGLOBIN 10.5 g/dL (13.5-17.0); LYMPHOCYTES % (AUTO) 6.6 % (13-45); MEAN CORPUSCULAR HGB CONC 33.9 g/dL (32.0-36.0); MEAN CORPUSCULAR VOLUME 86 fl (80-97); MONOCYTES % (AUTO) 4.3 % (3-13); PLATELET COUNT 159 10^3/uL (150-450); RED BLOOD COUNT 3.63 10^6/uL (4.35-5.55); RED CELL DISTRIBUTION WIDTH 15.1 % (11.5-14.0); SEGMENTED NEUTROPHILS % (AUTO) 89.1 % (42-78); TOTAL CELLS COUNTED % (AUTO) 100 %; WHITE BLOOD COUNT 14.7 10^3/uL (4.0-10.5)
[2020-03-23 06:05] LABS: ALKALINE PHOSPHATASE 66 U/L (38-126); ANION GAP 15 (5-19); ASPARTATE AMINO TRANSFERASE 44 U/L (17-59); BILIRUBIN,DIRECT 0.2 mg/dL (0.0-0.4); BILIRUBIN,TOTAL 0.4 mg/dL (0.2-1.3); CALCIUM 8.2 mg/dL (8.4-10.2); CARBON DIOXIDE 18 mmol/L (22-30); CHLORIDE 101 mmol/L (98-107); GLUCOSE 199 mg/dL (75-110); POTASSIUM 5.3 mmol/L (3.6-5.0); TOTAL PROTEIN 6.2 g/dL (6.3-8.2)
[2020-03-23 06:19] LABS: BLOOD UREA NITROGEN 134 mg/dL (7-20)
[2020-03-23] MEDS: HEPARIN SOD (PORCINE) 5,000 UNIT/ML 1 ML VIAL SUBCUT SCH ×3 (06:25→21:58)
[2020-03-23] MEDS: INSULIN REG, HUMAN 100 UNIT/ML 3 ML VIAL (PYX) SUBCUT SCH ×4 (08:30→22:02)
[2020-03-23] MEDS: INSULIN LISPRO 100 UNIT/ML 3 ML VIAL SUBCUT SCH ×3 (08:30→17:52)
[2020-03-23] MEDS ORDERED: METOPROLOL TARTRATE 25 MG TABLET PO ONE (10:30)
[2020-03-23] MEDS: DEXAMETHASONE SOD PHOS INJ 10 MG/1 ML VIAL IV SCH (10:36)
[2020-03-23] MEDS: CHOLECALCIFEROL (D3) 1,000 UNIT (25 MCG) TABLET PO SCH (10:38)
[2020-03-23] MEDS: AMLODIPINE BESYLATE 10 MG TABLET PO SCH (10:38)
[2020-03-23] MEDS: ZINC SULFATE 220 MG CAPSULE PO SCH (10:38)
[2020-03-23] MEDS: LISINOPRIL 10 MG TABLET PO SCH (10:38)
[2020-03-23] MEDS: ASCORBIC ACID 500 MG TABLET PO SCH ×2 (10:38→17:51)
[2020-03-23] MEDS: FAMOTIDINE INJ/PF 20 MG/2 ML SDV IV SCH (10:38)
[2020-03-23] MEDS: CARVEDILOL 3.125 MG TABLET PO SCH ×2 (10:39→21:58)
[2020-03-23] MEDS: TAMSULOSIN HCL 0.4 MG CAP.SR.24H PO SCH (17:51)
--- NOTE | 2020-03-23 18:49 | EKG REPORT ---
SEVERITY:- ABNORMAL ECG - ATRIAL FIBRILLATION RIGHT BUNDLE BRANCH BLOCK : Confirmed by: Maximilian Deras 23-Mar-2020 18:49:13
[2020-03-23] MEDS: LEVOFLOXACIN 750 MG/D5W RTU 750 MG/150 ML RTUPB IV SCH (21:58)
[2020-03-23] MEDS: ATORVASTATIN CALCIUM 80 MG TABLET PO SCH (21:58)
[2020-03-23] MEDS: INSULIN GLARGINE,HUM.REC.ANLOG 1,000 UNIT/10 ML VIAL SUBCUT SCH (22:04)
--- NOTE | 2020-03-23 22:06 | PDOC PROGRESS REPORT ---
Subjective Date:: 03/23/20 Subjective:: Patient continues to feel poorly. Reason For Visit: COVID-19 PNA Physical Exam Vital Signs: Temp Pulse Resp BP Pulse Ox 97.4 F 92 28 H 142/97 H 87 L 03/23/20 19:32 03/23/20 19:32 03/23/20 19:32 03/23/20 19:32 03/23/20 19:32 Intake & Output 03/22/20 03/23/20 03/24/20 06:59 06:59 06:59 Intake Total 936 1984 1450 Output Total 500 550 700 Balance 436 1434 750 Weight 92.8 kg 92.5 kg 92.5 kg General appearance: PRESENT: mild distress Respiratory exam: PRESENT: rales, symmetrical, tachypnea, other - Decreased inspiratory phase. ABSENT: rhonchi, wheezes Cardiovascular exam: PRESENT: RRR, +S1, +S2 GI/Abdominal exam: PRESENT: diminished bowel sounds, soft. ABSENT: tenderness Rectal exam: PRESENT: deferred Neurological exam: PRESENT: awake, oriented to person, oriented to place, oriented to situation. ABSENT: alert Psychiatric exam: PRESENT: flat affect. ABSENT: agitated, anxious Results Laboratory Results: 03/23/20 05:15 03/23/20 05:15 03/23/20 03/23/20 05:15 05:15 WBC 14.7 H RBC 3.63 L Hgb 10.5 L Hct 31.1 L MCV 86 MCH 29.0 MCHC 33.9 RDW 15.1 H Plt Count 159 Seg Neutrophils % 89.1 H Sodium 134.2 L Potassium 5.3 H Chloride 101 Carbon Dioxide 18 L Anion Gap 15 BUN 134 H D Creatinine 6.01 H Est GFR ( Amer) 11 L Glucose 199 H Calcium 8.2 L Total Bilirubin 0.4 AST 44 Alkaline Phosphatase 66 Total Protein 6.2 L Albumin 3.0 L 03/19/20 18:00 Creatine Kinase 38 L Impressions: Chest X-Ray 03/19/20 18:56 IMPRESSION: 1. Patchy predominantly bibasilar opacities are nonspecific. Differential diagnosis includes infectious and inflammatory causes. 2. Persistent mild enlargement of the cardiac silhouette in the setting of cardiothoracic postoperative changes. Assessment and Plan - Diagnosis (1) Acute respiratory failure with hypoxia Is this a current diagnosis for this admission?: Yes (2) Bilateral pneumonia Qualifiers: Pneumonia type: due to unspecified organism Lung location: unspecified part of lung Qualified Code(s): J18.9 - Pneumonia, unspecified organism Is this a current diagnosis for this admission?: Yes (3) COVID-19 virus infection Is this a current diagnosis for this admission?: Yes (4) Hyperkalemia Is this a current diagnosis for this admission?: Yes (5) Type 2 diabetes mellitus Qualifiers: Diabetes mellitus usp insulin use: unspecified usp insulin use status Diabetes mellitus complication status: without complication Qualified Code(s): E11.9 - Type 2 diabetes mellitus without complications Is this a current diagnosis for this admission?: Yes (6) CAD (coronary artery disease) Is this a current diagnosis for this admission?: Yes (7) HLD (hyperlipidemia) Is this a current diagnosis for this admission?: Yes (8) HTN (hypertension) Qualifiers: Hypertension type: essential hypertension Qualified Code(s): I10 - Essential (primary) hypertension Is this a current diagnosis for this admission?: Yes (9) Parkinson disease Is this a current diagnosis for this admission?: Yes (10) Stage 3b chronic kidney disease Is this a current diagnosis for this admission?: Yes (11) Obstructive sleep apnea Is this a current diagnosis for this admission?: Yes (12) COPD (chronic obstructive pulmonary disease) Qualifiers: COPD type: unspecified COPD Qualified Code(s): J44.9 - Chronic obstructive pulmonary disease, unspecified Is this a current diagnosis for this admission?: Yes (13) Acute worsening of stage 3 chronic kidney disease Is this a current diagnosis for this admission?: Yes - Plan Summary Summary: (1) Acute respiratory failure with hypoxia (2) Bilateral pneumonia (3) COVID-19 virus infection (4) Hyperkalemia (5) Type 2 diabetes mellitus (6) CAD (coronary artery disease) (7) HLD (hyperlipidemia) (8) HTN (hypertension) (9) Parkinson disease (10) Stage 3b chronic kidney disease (11) Obstructive sleep apnea (12) COPD (chronic obstructive pulmonary disease) (13) acute worsening of chronic stage III kidney disease 03/22/2020 Respiratory failure with bilateral COVID-19 infection-still BiPAP dependent. Continue current regimen including supplements and Decadron. Continue to try and wean from BiPAP and subsequently from oxygen. Chronic renal failure-the patient is suffered an acute worsening of his chronic kidney disease. Today his BUN was 108 with a creatinine of 5.14. This likely has caused his potassium to rise. It still remains in the normal range. I am going to increase his IV saline to 150 mL/h through tonight and recheck laboratory studies in the morning. Accu-Cheks are still high likely exacerbated by IV steroids. I will increase the Lantus to 35 units at night and monitor Accu-Cheks. No other changes in his treatment plan with regard to coronary artery disease, hyperlipidemia, hypertension, Parkinson's disease and COPD. The BiPAP will treat the sleep apnea. 03/23/2020 Renal failure continues to worsen. He is not a dialysis candidate. Respiratory status not improved. I discussed CODE STATUS with the patient. He wishes to change to DO NOT RESUSCITATE. He understands what that means. If he does not improve at all I will discuss comfort measures with the patient. - Time Time Spent with patient: 15-24 minutes Medications reviewed and adjusted accordingly: Yes Anticipated Discharge Disposition: [facility] Anticipated Discharge Timeframe: Unknown
--- NOTE | 2020-03-23 22:08 | ADVANCED CARE ---
- Diagnosis (1) Acute respiratory failure with hypoxia Diagnosis Current: Yes (2) Bilateral pneumonia Diagnosis Current: Yes (3) COVID-19 virus infection Diagnosis Current: Yes (4) Hyperkalemia Diagnosis Current: Yes (5) Type 2 diabetes mellitus Diagnosis Current: Yes (6) CAD (coronary artery disease) Diagnosis Current: Yes (7) HLD (hyperlipidemia) Diagnosis Current: Yes (8) HTN (hypertension) Diagnosis Current: Yes (9) Parkinson disease Diagnosis Current: Yes (10) Stage 3b chronic kidney disease Diagnosis Current: Yes (11) Obstructive sleep apnea Diagnosis Current: Yes (12) COPD (chronic obstructive pulmonary disease) Diagnosis Current: Yes (13) Acute worsening of stage 3 chronic kidney disease Diagnosis Current: Yes Attendance: Discussion held at the bedside with the patient Resuscitation Status: Do Not Resuscitate Discussion: Reviewed his current status. Reviewed the comorbidities that will only continue to worsen. He does understand that he is not likely to get better. He in fact said that he is going to and there is nothing that can be done. I initiated discussion about comfort measures but will follow up on this likely tomorrow. Care Planning Goals: Likely transition to comfort measures due to the irreversible nature of his illness Document(s) Completed: None Time Spent: 20 minutes
[2020-03-24] MEDS: IPRATROPIUM/ALBUTEROL 0.5-2.5 MG/3 ML AMPUL NEB SCH ×2 (02:55→08:05)
[2020-03-24] MEDS: HEPARIN SOD (PORCINE) 5,000 UNIT/ML 1 ML VIAL SUBCUT SCH (05:03)
[2020-03-24 05:15] LABS: ABSOLUTE MONOCYTES (AUTO) 0.8 10^3/uL (0.1-1.4); ABSOLUTE NEUT (AUTO) 14.1 10^3/uL (1.7-8.2); BASOPHILS % (AUTO) 0.2 % (0-2); HEMATOCRIT 30.9 % (37.9-51.0); HEMOGLOBIN 10.3 g/dL (13.5-17.0); LYMPHOCYTES % (AUTO) 6.3 % (13-45); MEAN CORPUSCULAR HEMOGLOBIN 28.7 pg (27.0-33.4); MEAN CORPUSCULAR HGB CONC 33.4 g/dL (32.0-36.0); MEAN CORPUSCULAR VOLUME 86 fl (80-97); PLATELET COUNT 165 10^3/uL (150-450); RED CELL DISTRIBUTION WIDTH 14.8 % (11.5-14.0); SEGMENTED NEUTROPHILS % (AUTO) 88.5 % (42-78); TOTAL CELLS COUNTED % (AUTO) 100 %
[2020-03-24 05:37] LABS: ALBUMIN 2.6 g/dL (3.5-5.0); ALKALINE PHOSPHATASE 51 U/L (38-126); ANION GAP 15 (5-19); ASPARTATE AMINO TRANSFERASE 26 U/L (17-59); BILIRUBIN,DIRECT 0.3 mg/dL (0.0-0.4); BILIRUBIN,TOTAL 0.4 mg/dL (0.2-1.3); CALCIUM 7.7 mg/dL (8.4-10.2); CARBON DIOXIDE 14 mmol/L (22-30); CHLORIDE 106 mmol/L (98-107); GLUCOSE 176 mg/dL (75-110); POTASSIUM 5.4 mmol/L (3.6-5.0); TOTAL PROTEIN 5.5 g/dL (6.3-8.2)
[2020-03-24 05:46] LABS: BLOOD UREA NITROGEN 156 mg/dL (7-20)
[2020-03-24] MEDS: INSULIN REG, HUMAN 100 UNIT/ML 3 ML VIAL (PYX) SUBCUT SCH ×2 (08:26→11:08)
[2020-03-24] MEDS: LISINOPRIL 10 MG TABLET PO SCH (09:34)
[2020-03-24] MEDS: INSULIN LISPRO 100 UNIT/ML 3 ML VIAL SUBCUT SCH ×2 (09:34→11:08)
[2020-03-24] MEDS: AMLODIPINE BESYLATE 10 MG TABLET PO SCH (09:35)
[2020-03-24] MEDS: CARVEDILOL 3.125 MG TABLET PO SCH (09:35)
[2020-03-24] MEDS: ASCORBIC ACID 500 MG TABLET PO SCH ×2 (09:37→11:10)
[2020-03-24] MEDS: FAMOTIDINE INJ/PF 20 MG/2 ML SDV IV SCH (09:37)
[2020-03-24] MEDS: ZINC SULFATE 220 MG CAPSULE PO SCH ×2 (09:37→11:07)
[2020-03-24] MEDS: CHOLECALCIFEROL (D3) 1,000 UNIT (25 MCG) TABLET PO SCH ×2 (09:37→11:10)
[2020-03-24] MEDS: DEXAMETHASONE SOD PHOS INJ 10 MG/1 ML VIAL IV SCH ×2 (09:37→11:10)
[2020-03-24] MEDS ORDERED: MORPHINE SULFATE 10 MG/ML INJ IV PRN (11:04)
--- NOTE | 2020-03-24 11:11 | PDOC PROGRESS REPORT ---
Subjective Date:: 03/24/20 Subjective:: The patient is getting ready to eat breakfast. We discussed his current status and prognosis. Reason For Visit: COVID-19 PNA Physical Exam Vital Signs: Temp Pulse Resp BP Pulse Ox 97.6 F 73 20 92/40 L 90 L 03/24/20 08:00 03/24/20 08:05 03/24/20 08:05 03/23/20 23:28 03/24/20 08:05 Intake & Output 03/23/20 03/24/20 03/25/20 06:59 06:59 06:59 Intake Total 1984 2450 Output Total 550 1200 Balance 1434 1250 Weight 92.5 kg 93.3 kg General appearance: PRESENT: cooperative, mild distress - Mild to moderate distress Respiratory exam: PRESENT: rales - Fine rales bilaterally, symmetrical, tachyp yeny. ABSENT: rhonchi, wheezes Cardiovascular exam: PRESENT: RRR, +S1, +S2. ABSENT: bradycardia, diastolic murmur, irregular rhythm, systolic murmur, tachycardia GI/Abdominal exam: PRESENT: normal bowel sounds, soft. ABSENT: tenderness Rectal exam: PRESENT: deferred Neurological exam: PRESENT: alert, awake, oriented to person, oriented to place, oriented to situation Psychiatric exam: PRESENT: flat affect. ABSENT: agitated, anxious Focused psych exam: ABSENT: delusional, paranoid, restlessness Results Laboratory Results: 03/24/20 04:49 03/24/20 04:49 03/24/20 03/24/20 04:49 04:49 WBC 16.0 H RBC 3.60 L Hgb 10.3 L Hct 30.9 L MCV 86 MCH 28.7 MCHC 33.4 RDW 14.8 H Plt Count 165 Seg Neutrophils % 88.5 H Sodium 134.5 L Potassium 5.4 H Chloride 106 Carbon Dioxide 14 L Anion Gap 15 BUN 156 H D Creatinine 6.56 H Est GFR ( Amer) 10 L Glucose 176 H Calcium 7.7 L Total Bilirubin 0.4 AST 26 Alkaline Phosphatase 51 Total Protein 5.5 L Albumin 2.6 L 03/19/20 18:00 Creatine Kinase 38 L Impressions: Chest X-Ray 03/19/20 18:56 IMPRESSION: 1. Patchy predominantly bibasilar opacities are nonspecific. Differential diagnosis includes infectious and inflammatory causes. 2. Persistent mild enlargement of the cardiac silhouette in the setting of cardiothoracic postoperative changes. 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 insulin use: unspecified long term care pharmacist insulin use status Diabetes mellitus complication status: without complication Qualified Code(s): E11.9 - Type 2 diabetes mellitus without complications Is this a current diagnosis for this admission?: Yes (6) CAD (coronary artery disease) Is this a current diagnosis for this admission?: Yes (7) HLD (hyperlipidemia) Is this a current diagnosis for this admission?: Yes (8) HTN (hypertension) Qualifiers: Hypertension type: essential hypertension Qualified Code(s): I10 - Essential (primary) hypertension Is this a current diagnosis for this admission?: Yes (9) Parkinson disease Is this a current diagnosis for this admission?: Yes (10) Stage 3b chronic kidney disease Is this a current diagnosis for this admission?: Yes (11) Obstructive sleep apnea Is this a current diagnosis for this admission?: Yes (12) COPD (chronic obstructive pulmonary disease) Qualifiers: COPD type: unspecified COPD Qualified Code(s): J44.9 - Chronic obstructive pulmonary disease, unspecified Is this a current diagnosis for this admission?: Yes (13) Acute worsening of stage 3 chronic kidney disease Is this a current diagnosis for this admission?: Yes - Plan Summary Summary: (1) Acute respiratory failure with hypoxia (2) Bilateral pneumonia (3) COVID-19 virus infection (4) Hyperkalemia (5) Type 2 diabetes mellitus (6) CAD (coronary artery disease) (7) HLD (hyperlipidemia) (8) HTN (hypertension) (9) Parkinson disease (10) Stage 3b chronic kidney disease (11) Obstructive sleep apnea (12) COPD (chronic obstructive pulmonary disease) (13) acute worsening of chronic stage III kidney disease 03/22/2020 Respiratory failure with bilateral COVID-19 infection-still BiPAP dependent. Continue current regimen including supplements and Decadron. Continue to try and wean from BiPAP and subsequently from oxygen. Chronic renal failure-the patient is suffered an acute worsening of his chronic kidney disease. Today his BUN was 108 with a creatinine of 5.14. This likely has caused his potassium to rise. It still remains in the normal range. I am going to increase his IV saline to 150 mL/h through tonight and recheck laboratory studies in the morning. Accu-Cheks are still high likely exacerbated by IV steroids. I will increase the Lantus to 35 units at night and monitor Accu-Cheks. No other changes in his treatment plan with regard to coronary artery disease, hyperlipidemia, hypertension, Parkinson's disease and COPD. The BiPAP will treat the sleep apnea. 03/23/2020 Renal failure continues to worsen. He is not a dialysis candidate. Respiratory status not improved. I discussed CODE STATUS with the patient. He wishes to change to DO NOT RESUSCITATE. He understands what that means. If he does not improve at all I will discuss comfort measures with the patient. 03/24/2020 The patient's renal function continues to worsen. He is not a dialysis candidate. His white blood cell count continues to increase. His potassium is elevated and his serum glucose is elevated. His blood pressure has been decreasing. The patient voiced his opinion that at 84 years old he knows he is going to . He wants to be comfortable. I confirmed this with the patient and he wants to proceed with discontinuing aggressive interventions and focusing on comfort measures. The nurse was at the bedside for the entirety of this discussion. With that in mind I am going to discontinue all medications and have morphine, lorazepam, Tylenol and Zofran available for the patient. We will also discontinue oxygen therapy. I explained that this just prolong the inevitable. There will be no more blood tests and I will cut the vital signs to every shift. We will continue to monitor the patient from the nurses station as well. - Time Time Spent with patient: 15-24 minutes Medications reviewed and adjusted accordingly: Yes Anticipated Discharge Disposition: comfort Anticipated Discharge Timeframe: within 48 hours
[2020-03-24] MEDS: LORAZEPAM INJ 2 MG/1 ML VIAL IV PRN ×2 (13:02→15:32)
[2020-03-24] MEDS: MORPHINE SULFATE 10 MG/ML INJ IV PRN ×2 (13:51→22:05)
[2020-03-25 09:55] VITALS: BP 91/49
--- NOTE | 2020-03-25 10:42 | PDOC TRANSFER SUMMARY ---
Impression - Admit/DC Date/PCP Admission Date/Primary Care Provider: 03/20/20 13:06 ELANA HERNANDEZ Discharge Date: 03/25/20 - Discharge Diagnosis (1) Acute respiratory failure with hypoxia Is this a current diagnosis for this admission?: Yes (2) Bilateral pneumonia Is this a current diagnosis for this admission?: Yes (3) COVID-19 virus infection Is this a current diagnosis for this admission?: Yes (4) Hyperkalemia Is this a current diagnosis for this admission?: Yes (5) Type 2 diabetes mellitus Is this a current diagnosis for this admission?: Yes (6) CAD (coronary artery disease) Is this a current diagnosis for this admission?: Yes (7) HLD (hyperlipidemia) Is this a current diagnosis for this admission?: Yes (8) HTN (hypertension) Is this a current diagnosis for this admission?: Yes (9) Parkinson disease Is this a current diagnosis for this admission?: Yes (10) Stage 3b chronic kidney disease Is this a current diagnosis for this admission?: Yes (11) Obstructive sleep apnea Is this a current diagnosis for this admission?: Yes (12) COPD (chronic obstructive pulmonary disease) Is this a current diagnosis for this admission?: Yes (13) Acute worsening of stage 3 chronic kidney disease Is this a current diagnosis for this admission?: Yes - Assessment Summary: (1) Acute respiratory failure with hypoxia (2) Bilateral pneumonia (3) COVID-19 virus infection (4) Hyperkalemia (5) Type 2 diabetes mellitus (6) CAD (coronary artery disease) (7) HLD (hyperlipidemia) (8) HTN (hypertension) (9) Parkinson disease (10) Stage 3b chronic kidney disease (11) Obstructive sleep apnea (12) COPD (chronic obstructive pulmonary disease) (13) acute worsening of chronic stage III kidney disease (1) Acute respiratory failure with hypoxia Is this a current diagnosis for this admission?: Yes Plan: Currently on BiPAP, O2 sats 90s. - Oxygen saturation on initial presentation was 87% on room air - Venous blood gas showed a pH of 7.35 and PCO2 of 47 - Dx Covid 19 03/13 - Tx thus far: x7 days Iv steroids, x6 days Azithromycin - Chest x-ray showed patchy predominantly bibasilar opacities - ferritin, C-reactive protein, CK, D-dimer levels all elevated - Continue dexamethasone 6 mg IV daily daily - Placed him on zinc, vitamin D, vitamin C - Pt denies convalescent plasma - Cnt breathing treatments - Flutter valve and incentive spirometry - Due to eGFR <30 patient will hold Remdesivir at this time - Closely monitor respiratory parameters (2) Bilateral pneumonia Qualifiers: Pneumonia type: due to unspecified organism Lung location: unspecified part of lung Qualified Code(s): J18.9 - Pneumonia, unspecified organism Is this a current diagnosis for this admission?: Yes Plan: Chest x-ray shows patchy bilateral opacities predominantly bibasilar - Likely due to infection due to COVID-19 - Leukocytosis with small bump - Cnt Levofloxacin 750mg IV day 2 - Continue managing COVID-19 infection as stated above (3) COVID-19 virus infection Is this a current diagnosis for this admission?: Yes Plan: Dx'd Covid-19 at [facility] on 03/13 - Tx thus far: x6 days Iv steroids, x6 days Azithromycin - Tx as above (4) Hyperkalemia Is this a current diagnosis for this admission?: Yes Plan: Resolved with Kayexalate initially. 5.1 on labs today. 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 - Recent hx BS in 500s at [facility] - Accu-checks consistently in 100-200s - Initiate 30u lantus qHS, Humalog 5u AC - Cnt SSI - Cnt Accu-checks (6) CAD (coronary artery disease) Is this a current diagnosis for this admission?: Yes Plan: Currently denies any chest pain - Continue aspirin and statin (7) HLD (hyperlipidemia) Is this a current diagnosis for this admission?: Yes Plan: Continue rosuvastatin (8) HTN (hypertension) Qualifiers: Hypertension type: essential hypertension Qualified Code(s): I10 - Esse ntial (primary) hypertension Is this a current diagnosis for this admission?: Yes Plan: Continue home medications (9) Parkinson disease Is this a current diagnosis for this admission?: Yes (10) Stage 3b chronic kidney disease Is this a current diagnosis for this admission?: Yes Plan: With worsening kidney function noted on labs on compared to initial presentation yesterday. Initiate gentle fluids and repeat labs in the morning. Discussion with patient's nurse Clemencia Fung states that patient has had limited oral intake of fluids over the past week since being diagnosed with Covid. There is a chance that this is just dehydration exacerbating CKD. - Renally dose medications and avoid nephrotoxic's - Will request most recent labs from Fatimah Fung to establish baseline - Most recent labs here are from 2018 (11) COPD (chronic obstructive pulmonary disease) Qualifiers: COPD type: unspecified COPD Qualified Code(s): J44.9 - Chronic obstructive pulmonary disease, unspecified Is this a current diagnosis for this admission?: Yes (12) Obstructive sleep apnea Is this a current diagnosis for this admission?: Yes Plan: Hx VAISHNAVI - CPAP at night time 03/22/2020 Respiratory failure with bilateral COVID-19 infection-still BiPAP dependent. Continue current regimen including supplements and Decadron. Continue to try and wean from BiPAP and subsequently from oxygen. Chronic renal failure-the patient is suffered an acute worsening of his chronic kidney disease. Today his BUN was 108 with a creatinine of 5.14. This likely has caused his potassium to rise. It still remains in the normal range. I am going to increase his IV saline to 150 mL/h through tonight and recheck laboratory studies in the morning. Accu-Cheks are still high likely exacerbated by IV steroids. I will increase the Lantus to 35 units at night and monitor Accu-Cheks. No other changes in his treatment plan with regard to coronary artery disease, hyperlipidemia, hypertension, Parkinson's disease and COPD. The BiPAP will treat the sleep apnea. 03/23/2020 Renal failure continues to worsen. He is not a dialysis candidate. Respiratory status not improved. I discussed CODE STATUS with the patient. He wishes to change to DO NOT RESUSCITATE. He understands what that means. If he does not improve at all I will discuss comfort measures with the patient. 03/24/2020 The patient's renal function continues to worsen. He is not a dialysis candidate. His white blood cell count continues to increase. His potassium is elevated and his serum glucose is elevated. His blood pressure has been decreasing. The patient voiced his opinion that at 84 years old he knows he is going to . He wants to be comfortable. I confirmed this with the patient and he wants to proceed with discontinuing aggressive interventions and focusing on comfort measures. The nurse was at the bedside for the entirety of this discussion. With that in mind I am going to discontinue all medications and have morphine, lorazepam, Tylenol and Zofran available for the patient. We will also discontinue oxygen therapy. I explained that this just prolong the inevitable. There will be no more blood tests and I will cut the vital signs to every shift. We will continue to monitor the patient from the nurses station as well. 03/25/2020 The patient's prognosis was grave. He was made comfort measures only. [facility] has graciously accepted him back to continue his terminal care. - Additional Information Resuscitation Status: Do Not Resuscitate Discharge Diet: As Tolerated Discharge Activity: Bedrest Referrals: PRADIP BAPTISTE FNP-C [Primary Care Provider] - 04/05/20 9:15 am Prescriptions: Lorazepam [Lorazepam Intensol] 2 mg PO Q2 PRN #20 ml PRN Reason: Anxiety or agitation Morphine Sulfate 10 mg PO Q2 PRN #10 ml PRN Reason: Pain or difficulty breathing Home Medications: Acetaminophen [Tylenol] 650 mg PO Q4HP PRN 03/20/20 Lorazepam [Lorazepam Intensol] 2 mg PO Q2 PRN #20 ml 03/25/20 Morphine Sulfate 10 mg PO Q2 PRN #10 ml 03/25/20 History of Present Illiness History of Present Illness: STEPHENIE PEREZ is a 84 year old male with a history of type 2 diabetes, CKD stage IIIb, hypertension, hyperlipidemia, CAD and Parkinson's disease who p resents from [facility] with worsening of shortness of breath. Patient is poor historian and is able to remember details. Patient was diagnosed with COVID-19 on 03/14/2020 weaned over the past few days he states that he has been feeling terrible, unable to get out of bed, fatigued and short of breath. He also had associated dry cough but denies any fever, chills, chest pain. He denies any nausea, vomiting or any change in his bowel or urinary habits. On arrival to the ED patient was saturating 87% on room air and currently is requiring 3 L intranasal oxygen to saturate 93 to 94%. Physical Exam Vital Signs: Temp Pulse Resp BP Pulse Ox 97.4 F 61 18 91/49 L 80 L 03/25/20 08:57 03/25/20 08:57 03/25/20 08:57 03/25/20 08:57 03/25/20 08:57 Intake & Output 03/24/20 03/25/20 03/26/20 06:59 06:59 06:59 Intake Total 2450 1390 Output Total 1200 Balance 1250 1390 Weight 93.3 kg 95 kg General appearance: PRESENT: no acute distress, other - Minimally responsive Respiratory exam: PRESENT: accessory muscle use, rales, tachypnea Cardiovascular exam: PRESENT: RRR, +S1, +S2 GI/Abdominal exam: PRESENT: diminished bowel sounds, soft. ABSENT: tenderness Rectal exam: PRESENT: deferred Gentrourinary exam: PRESENT: indwelling catheter Neurological exam: ABSENT: awake Psychiatric exam: ABSENT: agitated, anxious Results Laboratory Results: WBC 16.0 10^3/uL (4.0-10.5) H 03/24/20 04:49 RBC 3.60 10^6/uL (4.35-5.55) L 03/24/20 04:49 Hgb 10.3 g/dL (13.5-17.0) L 03/24/20 04:49 Hct 30.9 % (37.9-51.0) L 03/24/20 04:49 MCV 86 fl (80-97) 03/24/20 04:49 MCH 28.7 pg (27.0-33.4) 03/24/20 04:49 MCHC 33.4 g/dL (32.0-36.0) 03/24/20 04:49 RDW 14.8 % (11.5-14.0) H 03/24/20 04:49 Plt Count 165 10^3/uL (150-450) 03/24/20 04:49 Lymph % (Auto) 6.3 % (13-45) L 03/24/20 04:49 [place] % (Auto) 5.0 % (3-13) 03/24/20 04:49 Eos % (Auto) 0.0 % (0-6) 03/24/20 04:49 Baso % (Auto) 0.2 % (0-2) 03/24/20 04:49 Absolute Neuts (auto) 14.1 10^3/uL (1.7-8.2) H 03/24/20 04:49 Absolute Lymphs (auto) 1.0 10^3/uL (0.5-4.7) 03/24/20 04:49 Absolute Monos (auto) 0.8 10^3/uL (0.1-1.4) 03/24/20 04:49 Absolute Eos (auto) 0.0 10^3/uL (0.0-0.6) 03/24/20 04:49 Absolute Basos (auto) 0.0 10^3/uL (0.0-0.2) 03/24/20 04:49 Total Counted 100 03/21/20 06:06 Seg Neutrophils % 88.5 % (42-78) H 03/24/20 04:49 Seg Neuts % (Manual) 93 % (42-78) H 03/21/20 06:06 Band Neutrophils % 2 % (3-5) L 03/21/20 06:06 Lymphocytes % (Manual) 4 % (13-45) L 03/21/20 06:06 Monocytes % (Manual) 1 % (3-13) L 03/21/20 06:06 Eosinophils % (Manual) 0 % (0-6) 03/21/20 06:06 Basophils % (Manual) 0 % (0-2) 03/21/20 06:06 Abs Neuts (Manual) 13.5 10^3/uL (1.7-8.2) H 03/21/20 06:06 Abs Lymphs (Manual) 0.6 10^3/uL (0.5-4.7) 03/21/20 06:06 Abs Monocytes (Manual) 0.1 10^3/uL (0.1-1.4) 03/21/20 06:06 Absolute Eos (Manual) 0.0 10^3/uL (0.0-0.6) 03/21/20 06:06 Abs Basophils (Manual) 0.0 10^3/uL (0.0-0.2) 03/21/20 06:06 Platelet Comment ADEQUATE 03/21/20 06:06 Poikilocytosis SLIGHT 03/21/20 06:06 Ovalocytes SLIGHT 03/21/20 06:06 ESR 99 mm/hr (0-20) H 03/19/20 18:00 D-Dimer 0.95 ug/mL (0.00-0.50) H 03/19/20 18:00 Carbonic Acid 1.14 mmol/L (1.05-1.35) 03/20/20 12:32 HCO3/H2CO3 Ratio 21:1 03/20/20 12:32 ABG pH 7.42 (7.35-7.45) 03/20/20 12:32 ABG pCO2 37.8 mmHg (35-45) 03/20/20 12:32 ABG pO2 57.3 mmHg (80-100) L 03/20/20 12:32 ABG HCO3 24.1 mmol/L (20-24) H 03/20/20 12:32 ABG Total CO2 25.2 mmol/L (23-27) 03/20/20 12:32 ABG O2 Saturation 90.5 % (94-98) L 03/20/20 12:32 ABG Base Excess -0.2 mmol/L 03/20/20 12:32 VBG pH 7.35 (7.30-7.42) 03/19/20 18:00 VBG pCO2 47.4 mmHg (35-63) 03/19/20 18:00 VBG HCO3 25.6 mmol/L (20-32) 03/19/20 18:00 VBG Base Excess -0.7 mmol/L 03/19/20 18:00 FiO2 6L 03/20/20 12:32 Sodium 134.5 mmol/L (137-145) L 03/24/20 04:49 Potassium 5.4 mmol/L (3.6-5.0) H 03/24/20 04:49 Chloride 106 mmol/L (98-107) 03/24/20 04:49 Carbon Dioxide 14 mmol/L (22-30) L 03/24/20 04:49 Anion Gap 15 (5-19) 03/24/20 04:49 BUN 156 mg/dL (7-20) H D 03/24/20 04:49 Creatinine 6.56 mg/dL (0.52-1.25) H 03/24/20 04:49 Est GFR ( Amer) 10 (>60) L 03/24/20 04:49 Est GFR (MDRD) Non-Af 8 (>60) L 03/24/20 04:49 Glucose 176 mg/dL (75-110) H 03/24/20 04:49 POC Glucose 180 mg/dL (70-110) H 03/24/20 08:14 Calcium 7.7 mg/dL (8.4-10.2) L 03/24/20 04:49 Ferritin 357.00 ng/mL (17.9-464.0) 03/19/20 18:00 Total Bilirubin 0.4 mg/dL (0.2-1.3) 03/24/20 04:49 Direct Bilirubin 0.3 mg/dL (0.0-0.4) 03/24/20 04:49 Neonat Total Bilirubin Not Reportable 03/24/20 04:49 Neonat Direct Bilirubin Not Reportable 03/24/20 04:49 Neonat Indirect Bili Not Reportable 03/24/20 04:49 AST 26 U/L (17-59) 03/24/20 04:49 ALT 31 U/L (<50) 03/24/20 04:49 Alkaline Phosphatase 51 U/L (38-126) 03/24/20 04:49 Lactate Dehydrogenase 202 U/L (120-246) 03/19/20 18:00 Creatine Kinase 38 U/L (55-170) L 03/19/20 18:00 C-Reactive Protein 16.5 mg/L (<10.0) H 03/19/20 18:00 Total Protein 5.5 g/dL (6.3-8.2) L 03/24/20 04:49 Albumin 2.6 g/dL (3.5-5.0) L 03/24/20 04:49 Urine Color YELLOW 03/19/20 19:34 Urine Appearance SLIGHTLY-CLOUDY 03/19/20 19:34 Urine pH 5.0 (5.0-9.0) 03/19/20 19:34 Ur Specific [place] 1.012 03/19/20 19:34 Urine Protein 30 mg/dL (NEGATIVE) H 03/19/20 19:34 Urine Glucose (UA) 150 mg/dL (NEGATIVE) H 03/19/20 19:34 Urine Ketones NEGATIVE mg/dL (NEGATIVE) 03/19/20 19:34 Urine Blood SMALL (NEGATIVE) H 03/19/20 19:34 Urine Nitrite NEGATIVE (NEGATIVE) 03/19/20 19:34 Urine Bilirubin NEGATIVE (NEGATIVE) 03/19/20 19:34 Urine Urobilinogen NEGATIVE mg/dL (<2.0) 03/19/20 19:34 Ur Leukocyte Esterase NEGATIVE (NEGATIVE) 03/19/20 19:34 Urine WBC (Auto) 0 /HPF 03/19/20 19:34 Urine RBC (Auto) 0 /HPF 03/19/20 19:34 U Hyaline Cast (Auto) 4 /LPF 03/19/20 19:34 Squamous Epi Cells Auto 1 /HPF 03/19/20 19:34 Urine Ascorbic Acid NEGATIVE (NEGATIVE) 03/19/20 19:34 Blood Type O POSITIVE 03/20/20 14:45 Antibody Screen NEGATIVE 03/20/20 14:45 Impressions: Chest X-Ray 03/19/20 18:56 IMPRESSION: 1. Patchy predominantly bibasilar opacities are nonspecific. Differential diagnosis includes infectious and inflammatory causes. 2. Persistent mild enlargement of the cardiac silhouette in the setting of cardiothoracic postoperative changes. Plan Health Concerns: Patient is comfort measures only Plan of Treatment: Return to [facility] to complete comfort measures until the patient expires Goals: Absolute goal is to maintain a comfortable terminal care experience Time Spent: Greater than 30 Minutes Stroke Is this a Stroke Patient?: No Acute Heart Failure Is this a Heart Failure Patient?: No
[2020-03-25] MEDS: MORPHINE SULFATE 10 MG/ML INJ IV PRN (14:47)
== END 2020-03-25 15:31 | DRG 177 ==
LOC: ER 17:39 → EH 23:36 → 3N 03-20 01:24 → OBSVTOIN 03-20 13:06
PROVIDERS: ADMIT Student in an Organized Health Care Education/Training Program; ATTEND Hospitalist
PROC: 5A09457 Assistance with Respiratory Ventilation, 24-96 Consecutive Hours, Continuous Positive Airway Pressure (ICD-10-PCS; principal; 2020-03-21)
DX: U07.1 COVID-19 (principal); J12.89 Other viral pneumonia; J96.01 Acute respiratory failure with hypoxia; I25.10 Atherosclerotic heart disease of native coronary artery without angina pectoris; I25.2 Old myocardial infarction; I12.9 Hypertensive chronic kidney disease with stage 1 through stage 4 chronic kidney disease, or unspecified chronic kidney disease; E11.22 Type 2 diabetes mellitus with diabetic chronic kidney disease; N18.32 Chronic kidney disease, stage 3b; E11.51 Type 2 diabetes mellitus with diabetic peripheral angiopathy without gangrene; E78.00 Pure hypercholesterolemia, unspecified; G47.33 Obstructive sleep apnea (adult) (pediatric); J44.9 Chronic obstructive pulmonary disease, unspecified; F32.9 Major depressive disorder, single episode, unspecified; E87.5 Hyperkalemia; G20 Parkinson's disease; Z66 Do not resuscitate; Z88.0 Allergy status to penicillin; Z87.891 Personal history of nicotine dependence; Z86.73 Personal history of transient ischemic attack (TIA), and cerebral infarction without residual deficits; Z95.1 Presence of aortocoronary bypass graft; Z79.899 Other long term (current) drug therapy; Z51.5 Encounter for palliative care
CPT/HCPCS: 36415; 71045; 80048; 80053; 80076; 81001; 82550; 82728; 82803; 82962; 83615; 85025; 85379; 85652; 86140; 86850; 86900; 86901; 87040; 93005; 93010; 94640; 94660; 94667; 94668; 94799; 99285; G0378; J1100; J1644; J1815; J1956; J2060; J2270; J2405; J3490; J7030; S0028